=== PATIENT | male | born 1970 | race Caucasian/White ===

== ENCOUNTER → 2023-01-15 | Outpatient (CLI) | payer OTHER, SELFPAY ==
--- NOTE | 2023-01-15 13:40 | STRESSREP ---
Stress Test Report Exercise stress test. 52-year-old man with a history of chest pain Stress protocol: Resting EKG demonstrates normal sinus rhythm with a rate of 74 bpm resting blood pressure is 132/90 mmHg. The patient exercised according to the regular Leandro protocol for a total duration of 9 minutes attaining a maximum heart rate of 150 bpm which was 89% of maximum predicted heart rate; the maximum workload was 10.3 metabolic equivalents. At rest there were no ST or T wave changes noted to suggest ischemia and at peak exercise upsloping ST changes only were noted which did not meet the criteria for ischemia. No clinical angina was noted the test was terminated due to the target heart rate being achieved/fatigue. The patient did however complain of mild chest discomfort which did not change in intensity with exercise. The peak blood pressure was 150/74 mmHg. Rate-pressure product was 22,200. Normal exercise stress test with no EKG criteria for ischemia at a high workload. Chest discomfort of unclear significance.
== END | disposition home or self-care (01) ==
LOC: CVS 11:19
DX: R07.9 Chest pain, unspecified (principal)
CPT/HCPCS: 93017

== ENCOUNTER 2024-02-09 10:23 | Emergency (ER) | payer OTHER, SELFPAY ==
[2024-02-09] VITALS (30 sets, daily range): BP systolic 125–164; BP diastolic 81–110; PULSE 77–95; RESP 13–24; TEMP 36.1–37.1; O2SAT 96–99; BMI 27.8
--- NOTE | 2024-02-09 11:05 | EKG12_ITS ---
Test Reason : Blood Pressure : / mmHG Vent. Rate : 079 BPM Atrial Rate : 079 BPM P-R Int : 152 ms QRS Dur : 082 ms QT Int : 372 ms P-R-T Axes : 030 -09 033 degrees QTc Int : 426 ms Normal sinus rhythm Normal ECG Confirmed by Talib Rondon ([id number]), associate entertainment editor AVILA PINO ([id number]) on 02/11/2024 11:08:49 AM Referred By: Confirmed By:Talib Rondon
--- NOTE | 2024-02-09 11:06 | CT_ITS ---
STUDY: STROKE PROTOCOL CT BRAIN WITHOUT CONTRAST REASON FOR EXAM: Male, 53 years old. Neuro deficit, acute, stroke suspected RECENT HERNIA SURGERY LAST SUNDAY, THIS AM HAD NUMBNESS AND TINGLING ON RT SIDE THAT LASTED 1 MINUTE, SYMPTOMS RESOLVED RADIATION DOSAGE (If Supplied By Facility): CTDIvol = ( 29.02 ) mGy, DLP = ( 1452.79 ) mGycm TECHNIQUE: Transaxial CT imaging of the brain was performed without administration of intravenous contrast material. Individualized dose optimization techniques were used for this CT. COMPARISON: None. FINDINGS: Normal soft tissue structures. Normal calvarium. Normal size ventricles and extra-axial spaces for the patient''s age. Normal white matter tracts of the cerebral hemispheres. Normal basal ganglia and thalami. Normal brainstem. Normal cerebellum. There is no demonstrated asymmetric dense artery sign or sulcal effacement or parenchymal edema. There is no intracranial hemorrhage. There are no findings of an acute ischemic infarction. Normal visualized paranasal sinuses. ASPECTS Score for Acute Strokes: 10 IMPRESSION: 1. Normal unenhanced CT scan of the brain. 2. Concern for stroke/positive symptomatology should be further evaluated with CT brain perfusion/CTA or MRI of the brain for further assessment. STUDY: CTA HEAD AND NECK WITH CONTRAST REASON FOR EXAM: Male, 53 years old. Neuro deficit, acute, stroke suspected RADIATION DOSAGE (If Supplied By Facility): CTDIvol = ( 29.02 ) mGy, DLP = ( 1452.79 ) mGycm TECHNIQUE: CT angiography was performed with a multi-detector CT scanner. Data acquisition was obtained from the skull base through the vertex following intravenous administration of IV 100mL Isovue-370. MIP images were reconstructed from the axial data set. Post-processing of the angiographic images was performed, with multiplanar reformation and 3D reconstruction. Individualized dose optimization techniques were used for this CT. COMPARISON: No relevant priors. FINDINGS: Normal bilateral petrous carotid arteries. Normal right cavernous carotid artery with a normal supraclinoid bifurcation. Normal left cavernous carotid artery with a normal supraclinoid bifurcation. Normal right A1 segments of the anterior cerebral artery. Normal left A1 segments of the anterior cerebral artery. Normal intact anterior communicating artery (ACOM). Normal bilateral A2 segments of the anterior cerebral arteries. Normal right M1 and M2 segments of the middle cerebral arteries, with a normal M1 bifurcation. Normal left M1 and M2 segments of the middle cerebral arteries, with a normal M1 bifurcation. Normal right posterior communicating artery (PCOM). Normal left posterior communicating artery (PCOM). There is a small atretic right vertebral artery with a dominant left vertebral artery. Normal basilar artery with a normal basilar bifurcation. The visualized bilateral superior cerebellar (SCA) arteries are normal. Normal bilateral P1, P2 and visualized P3 segments of the posterior cerebral arteries. There is no demonstrated aneurysm of the [place]. There is no demonstrated abnormality of the visualized brain. AORTIC ARCH: Normal visualized aortic arch. Normal origins of the brachiocephalic, left common carotid, and left subclavian arteries. RIGHT CAROTID ARTERIES: Normal right common carotid artery (CCA). Normal right common carotid bulb. Normal origin of the right internal carotid (ICA) artery without a hemodynamically significant stenosis. Normal visualized cervical portion of the right internal carotid artery. Normal origin of the right external carotid artery (ECA). LEFT CAROTID ARTERIES: Normal left common carotid artery (CCA). Normal left common carotid bulb. Normal origin of the left internal carotid (ICA) artery without a hemodynamically significant stenosis. Normal visualized cervical portion of the left internal carotid artery. Normal origin of the left external carotid artery (ECA). VERTEBRAL ARTERIES: Normal bilateral vertebral arteries. CT/CTA Head AND Neck W/ Contrast IMPRESSION: 1. Normal [place] of [place] without a demonstrated aneurysm or hemodynamically significant stenosis. 2. Normal bilateral cervical carotid and vertebral arteries. N.B. : The above Results were Read Back by Kaden Kingston MD to Porfirio Holley MD, and understanding confirmed on 02/09/2024 12:49:44 (ET). Electronically Signed: Kaden Kingston MD at 12:51 EDT ,
--- NOTE | 2024-02-09 11:07 | ED.VIS.STROK ---
HPI History of Present Illness Chief Complaint: Neuro S/Sx Informant: patient and spouse/S.O. Narrative Narrative: Patient presents about 1 hour after sudden onset while he was awake this morning of numbness in his right upper extremity and right lower face, facial droop as confirmed by his , and slurred speech. He states that maybe lasted a minute before it all went away together. He does not remember feeling any weakness but he states he did not really try to do anything with his hand before at all resolved. Never had this before. He did not experience a headache or syncope or any other systemic symptoms. He had a right inguinal herniorrhaphy at [facility] 2 days ago. He has been sleeping in a recliner, but otherwise recovering okay without any discharge from underneath of his operative dressings. He is passing flatus no bowel movement yet. Urinating well. states that he had been straight catheterized while there, and subsequently he urinated a small amount of blood with some clots, he is now urinating without hematuria but he states there are some residual small clots that he seems to be urinating out occasionally. [facility] Medical History (Updated 02/09/24 @ 13:[address] Porfirio Holley MD) GERD (gastroesophageal reflux disease) Hyperlipidemia Home Medications ascorbic acid (vitamin C) 250 mg tablet (Vitamin C) 250 mg PO DAILY 02/09/24 [History Last Taken 01/31/24] cholecalciferol (vitamin D3) 50 mcg (2,000 unit) capsule (D3-2000) 2,000 unit PO DAILY 02/09/24 [History Last Taken 01/31/24] clopidogrel 75 mg tablet 75 mg PO DAILY 3 weeks #21 tabs 02/09/24 [Rx Last Taken Unknown] ezetimibe 10 mg tablet 10 mg PO DAILY 02/09/24 [History Last Taken 01/31/24] fluticasone 250 mcg-salmeterol 50 mcg/dose blistr powdr for inhalation (Wixela Inhub) 1 inh inhalation DAILY 02/09/24 [History Last Taken 02/09/24] hydrocodone-acetaminophen 5-325mg 5mg-325mg 1 tab PO Q6H PRN pain 02/09/24 [History Last Taken 02/08/24] omeprazole 20 mg capsule,delayed release 20 mg PO DAILY 02/09/24 [History Last Taken 02/08/24] rosuvastatin 10 mg tablet 20 mg (2 x 10 mg) PO DAILY #60 tabs 02/09/24 [Rx Last Taken Unknown] tamsulosin 0.4 mg capsule 0.8 mg PO DAILY 02/09/24 [History Last Taken 02/08/24] Allergy/AdvReac Type Severity Reaction Status Date / Time No Known Allergies Allergy Verified 02/09/24 10:25 Family History no significant family his Surgical History (Updated 02/09/24 @ 11:[address] Porfirio Holley MD) S/P hernia surgery S/P inguinal herniorrhaphy Social History Smoking Status: Never smoker ROS ROS ED Constitutional Constitutional ED: Denies chills or fever(s) Eyes Eyes: Denies change in vision or diplopia ENT ENT ED: Denies rhinorrhea or sore throat Cardiovascular Cardiovascular: Denies chest pain or palpitations Respiratory/Chest Respiratory/Chest: Denies cough or dyspnea Gastrointestinal Gastrointestinal: Denies abdominal pain, diarrhea, nausea or vomiting Genitourinary Genitourinary ED: Denies dysuria or hematuria Musculoskeletal Musculoskeletal: Denies back pain or neck pain Integumentary Denies abscess or rash Neurologic Neurologic: Reports abnormal speech, paresthesias and weakness; Denies headache(s) Psychiatric Psychiatric: Denies anxiety or suicidal thoughts EXAM Physical Exam Const Vital Signs: 02/09/24 10:24 02/09/24 10:57 02/09/24 11:05 Temperature 96.9 F L Temperature Source Temporal Pulse Rate 86 82 Respiratory Rate 16 16 Blood Pressure 164/107 H 147/93 H Blood Pressure Mean 126 111 Pulse Ox 97 98 Oxygen Delivery Method Room Air Room Air Room Air 02/09/24 11:05 02/09/24 10:51 02/09/24 10:55 Temperature Temperature Source Pulse Rate 88 81 82 Respiratory Rate 18 16 18 Blood Pressure 149/96 H 147/93 H Blood Pressure Mean 113 109 Pulse Ox 98 97 97 Oxygen Delivery Method Room Air 02/09/24 11:00 02/09/24 11:05 02/09/24 11:10 Temperature Temperature Source Pulse Rate 85 78 81 Respiratory Rate 17 16 16 Blood Pressure 142/96 H 140/100 H 140/95 H Blood Pressure Mean 108 112 106 Pulse Ox 98 97 97 Oxygen Delivery Method 02/09/24 11:15 02/09/24 11:20 02/09/24 11:25 Temperature Temperature Source Pulse Rate 86 95 Respiratory Rate 21 H 18 Blood Pressure 149/96 H 125/89 H 137/95 H Blood Pressure Mean 111 101 108 Pulse Ox 96 99 Oxygen Delivery Method 02/09/24 11:30 02/09/24 11:35 02/09/24 11:40 Temperature Temperature Source Pulse Rate 84 82 93 Respiratory Rate 21 H 21 H 14 Blood Pressure 145/102 H 139/98 H 143/106 H Blood Pressure Mean 115 110 118 Pulse Ox 97 97 97 Oxygen Delivery Method 02/09/24 11:45 02/09/24 11:50 02/09/24 11:55 Temperature Temperature Source Pulse Rate 77 80 80 Respiratory Rate 16 20 H 20 H Blood Pressure 143/95 H 137/93 H 140/96 H Blood Pressure Mean 109 106 109 Pulse Ox 98 97 97 Oxygen Delivery Method 02/09/24 12:00 02/09/24 12:05 02/09/24 12:10 Temperature Temperature Source Pulse Rate 80 79 86 Respiratory Rate 16 20 H 24 H Blood Pressure 136/95 H 138/100 H 145/110 H Blood Pressure Mean 107 111 123 Pulse Ox 97 97 96 Oxygen Delivery Method 02/09/24 12:25 02/09/24 12:26 02/09/24 12:30 Temperature Temperature Source Pulse Rate 82 83 Respiratory Rate 22 H 17 Blood Pressure 145/90 H 144/90 H Blood Pressure Mean 108 106 Pulse Ox 98 98 Oxygen Delivery Method 02/09/24 12:35 02/09/24 12:40 02/09/24 12:45 Temperature Temperature Source Pulse Rate 78 80 84 Respiratory Rate 18 17 16 Blood Pressure 146/96 H 144/95 H 135/102 H Blood Pressure Mean 110 110 113 Pulse Ox 98 99 99 Oxygen Delivery Method 02/09/24 12:50 02/09/24 12:55 02/09/24 13:00 Temperature Temperature Source Pulse Rate 81 83 82 Respiratory Rate 13 18 14 Blood Pressure 132/101 H 140/93 H 144/99 H Blood Pressure Mean 111 109 113 Pulse Ox 98 98 97 Oxygen Delivery Method Positive well nourished and well developed General Appearance ED: well developed and NAD HEENT Reports moist mucous membranes normocephalic and atraumatic Eyes PERRL and EOMs intact bilaterally Neck full ROM and supple Resp normal respiratory effort and clear to auscultation bilaterally Cardio regular rate, regular rhythm and no murmurs GI non-tender and non-distended Auscultation: normoactive bowel sounds Palpation: soft Back/Spine no CVA tenderness General Back: other FROM Extremity normal to inspection General Extremety ED: Negative for edema, pulses abnormal or tenderness General Extremity: Negative for edema or pulses abnormal Neuro oriented x3, CN's II-XII intact bilaterally and no sensory deficits noted Neuro Narrative: Speech normal. [id number] and [id number] normal bilaterally. Sensorium / Orientation: awake and alert Motor Exam: strength 5/5 throughout Psych mental status grossly normal Skin no rashes or lesions noted and no wounds NIHSS NIHSS Initial: 1a Level of Consciousness: 0 1b LOC Questions (Score 2 if aphasic/stupor): 0 1c LOC Commands (Only score 1st attempt): 0 2 Best Gaze (If aphasic, use reflexive mvmts.): 0 3 Visual: 0 4 Facial Palsy: 0 5 Motor Arm Right (UN = amputation/fusion): 0 5 Motor Arm Left: 0 6 Motor Leg Right: 0 6 Motor Leg Left: 0 7 Limb ataxia (Only + if out of proportion): 0 8 Sensory (Aphasia/stupor=0 or 1, coma=2): 0 9 Best Language: 0 10 Dysarthria (mute, coma=2, intubated=UN): 0 11 Extinction and Inattention (only scored if +): 0 Total Score: 0 MDM MDM MDM Narrative Medical decision making narrative: Stroke workup obtained, patient does not need to be a stroke alert since he is asymptomatic and not a thrombolytic candidate given his surgery couple days ago. Basically, his heart rhythm is normal sinus with a normal EKG and troponin, his labs are normal, CT of the head along with CT angiography of the head and neck images were reviewed by myself as well as the report which I agree with, negative for bleed, negative for acute stenosis or thrombosis. I spoke with the radiologist and specifically, he states that the vessels appear wide open and very normal. He states if this was a TIA it must have involved a small cortical vessel. The patient states he had a little bit of tingling in his lower face after CT but it went away quickly and he had no other symptoms, and reexamination he still has an NIHSS of 0, I suspect this tingling could have been related to contrast infusion head CT. His ABCD2 score is 2, as calculated below since his initial blood pressure was measuring 160/107: ABCD<sup>2</sup> Score for TIA from [email or web address] ([email or web address]) on 02/09/2024 All calculations should be rechecked by clinician prior to use RESULT SUMMARY: 2 points Per the validation study, 0-3 points: Low Risk 2-Day Stroke Risk: 1.0% 7-Day Stroke Risk: 1.2% 90-Day Stroke Risk: 3.1% INPUTS: Age >=60 years ?> 0 = No BP >=140/90 mmHg ?> 1 = Yes Clinical features of the TIA ?> 1 = Speech disturbance without weakness Duration of symptoms ?> 0 = <10 minutes History of diabetes ?> 0 = No Also reviewed the patient's chest x-ray, 2 views on my interpretation negative for mediastinal widening or pneumonia. I spoke with stroke neurology concerning this case. Given that we imaged his carotids, he recommends high-dose statin, DAPT with clopidogrel for 21 days and baby aspirin going forward daily during and after that, and echocardiogram can be obtained as an outpatient. He agrees since patient is asymptomatic and unless he develops recurrence, he may be discharged home and have the echocardiogram when he follows up. Patient is definitely amenable to this plan. Discussed at length with family. According to stroke neurology, there is an increased risk of TIAs and strokes after surgery as in this case, but for unknown reasons why. At this time his blood pressure stable 144/99. He is on rosuvastatin 10 mg 3 times a week so we are going to increase that to 20 mg daily in addition to adding aspirin 81 mg and clopidogrel 75 mg for 3 weeks to his regimen. While discussing with family, they also mention that he has been having episodes of chest pain but the patient states this has been for years. It oftentimes occurs in his back and radiates into his chest. His cardiac workup is negative right now, this may be esophageal in etiology, advise discussing this with his primary doctor. Most referring him to neurology to be seen as an outpatient. Lab Data Attestation: I reviewed the patient's lab results. Labs: Laboratory Results - last 24 hr 02/09/24 02/09/24 02/09/24 11:20 11:20 11:55 WBC Cancelled 7.6 Corrected WBC Cancelled RBC Cancelled 4.85 Hgb Cancelled 14.1 Hct Cancelled 42.6 MCV Cancelled 87.8 MCH Cancelled 29.1 MCHC Cancelled 33.1 RDW Std Deviation Cancelled 42.5 RDW Coeff of Omar Cancelled 13.2 Plt Count Cancelled 266 MPV Cancelled 9.7 Immature Gran % (Auto) Cancelled 0.400 Neut % (Auto) Cancelled 69.5 Lymph % (Auto) Cancelled 17.9 L Nolan % (Auto) Cancelled 8.9 Eos % (Auto) Cancelled 2.2 Baso % (Auto) Cancelled 1.1 H Absolute Neuts (auto) Cancelled 5.3 Absolute Lymphs (auto) Cancelled 1.36 Total Counted Cancelled Neutrophils % (Manual) Cancelled Band Neutrophils % Cancelled Lymphocytes % (Manual) Cancelled Monocytes % (Manual) Cancelled Eosinophils % (Manual) Cancelled Basophils % (Manual) Cancelled Metamyelocytes % Cancelled Myelocytes % Cancelled Promyelocytes % Cancelled Blast Cells % Cancelled Plasma Cell % (Manual) Cancelled Other Cells % Cancelled Nucleated RBC % Cancelled 0 Nucleated RBCs/100 WBC Cancelled Differential Comment Cancelled Diff Path Review Cancelled Hypersegmented Neuts Cancelled Atypical Lymphocytes Cancelled Reactive Lymphocytes Cancelled Smudge Cells Cancelled Toxic Granulation Cancelled Toxic Vacuolation Cancelled Dohle Bodies Cancelled Nehemiah Rods Cancelled Platelet Estimate Cancelled Plt Morphology Comment Cancelled RBC Morphology Cancelled Cancelled Polychromasia Cancelled Hypochromasia Cancelled Basophilic Stippling Cancelled Anisocytosis Cancelled Microcytosis Cancelled Macrocytosis Cancelled Spherocytes Cancelled Sickle Cells Cancelled Target Cells Cancelled Tear Drop Cells Cancelled Ovalocytes Cancelled Stomatocytes Cancelled [place] Bodies Cancelled Marichuy Cells Cancelled Bite Cells Cancelled Crenated Cell Cancelled Acanthocytes (Spur) Cancelled Rouleaux Cancelled Schistocytes Cancelled PT 13.0 INR 1.0 APTT 24.2 Sodium 139 Potassium 4.5 Chloride 109 H Carbon Dioxide 28.0 Anion Gap 2 L BUN 11 Creatinine 0.99 Estim Creat Clear Calc 90.71 Est GFR (MDRD) Af Amer 101 Est GFR (MDRD) Non-Af 84 BUN/Creatinine Ratio 11.1 Glucose 101 Calcium 9.3 Troponin I High Sens 5 Radiography Diagnostic Testing: Clinical Impression(s) from Imaging Studies Head/Neck CTA 02/09/24 11:06 IMPRESSION: 1. Normal [place] without a demonstrated aneurysm or hemodynamically significant stenosis. 2. Normal bilateral cervical carotid and vertebral arteries. N.B. : The above Results were Read Back by Kaden Kingston MD to Porfirio Holley MD, and understanding confirmed on 02/09/2024 12:49:44 (ET). Electronically Signed: Kaden Kingston MD at 12:51 EDT , ADDENDUM: 02/09/24 1258 IMPRESSION: 1. Normal [place] without a demonstrated aneurysm or hemodynamically significant stenosis. 2. Normal bilateral cervical carotid and vertebral arteries. N.B. : The above Results were Read Back by Kaden Kingston MD to Porfirio Holley MD, and understanding confirmed on 02/09/2024 12:49:44 (ET). Electronically Signed: Kaden Kingston MD at 12:51 EDT , Chest X-Ray 02/09/24 12:18 IMPRESSION: 1. Linear atelectasis is present in the bilateral lower lobes. No visualized consolidation or pulmonary edema or pleural effusion. Electronically Signed: Kaden Kingston MD at 13:38 EDT , Rhythm Strip Rhythm Strip: Sinus Rhythm Rate: 80 Ectopy: None EKG Initial EKG: Attestation: I personally reviewed and interpreted this EKG as follows: Interpretation: Sinus Rhythm and No Acute Injury Pattern Comments: nml EKG Management Discussion w/another healthcare provider: [employer] (Dr. Mcdonough, stroke neurology) and Radiologist Stroke Documentation Questions Stroke Team Activated: No (Symptoms resolved) Was Patient considered for Endovascular Intervention?: No-CTA negative, determined not to be an endovascular candidate IV Thrombolytic Administered: No (Symptoms resolved and recent surgery) Discharge Plan Triage Chief Complaint: Neuro S/Sx ED Provider: Porfirio Holley Dx/Rx/DC Orders Clinical Impression: Brain TIA Instructions: ED TIA: Transient Ischemic Attack Prescriptions: New clopidogrel 75 mg tablet 75 mg PO DAILY 21 Days Qty: 21 0RF Continued hydrocodone-acetaminophen 5-325 mg tablet 1 tab PO Q6H PRN (Reason: pain) ezetimibe 10 mg tablet 10 mg PO DAILY Patient Comments: MED STOPPED ON 01/31/24 FOR SURGERY tamsulosin 0.4 mg capsule 0.8 mg PO DAILY Patient Comments: pt took 1 capsule night, and 1 capsule sunday morning. no longer taking fluticasone propion-salmeterol [Wixela Inhub] 250-50 mcg/dose blister with device 1 inh inhalation DAILY omeprazole 20 mg capsule,delayed release(DR/EC) 20 mg PO DAILY ascorbic acid (vitamin C) [Vitamin C] 250 mg tablet 250 mg PO DAILY cholecalciferol (vitamin D3) [D3-2000] 50 mcg (2,000 unit) capsule 2,000 unit PO DAILY Changed rosuvastatin 10 mg tablet 20 mg PO DAILY Qty: 60 0RF Patient Comments: MED STOPPED ON 01/31/24 FOR SURGERY Primary Care Provider: Bala Munoz Referrals: Gen Larose MD [Non-Staff -Ordering Privileges] - As soon as possible (Neurology) Bala Munoz DO [Primary Care Provider] - As soon as possible Activity Restrictions/Additional Instructions: To the medication list attached, add aspirin 81 mg (baby aspirin) once daily. In addition to your doctor, you may also follow-up with our neurologist whose information is attached, or if you wish you may follow-up with a neurology practice elsewhere. Disposition Disposition: Home, Self Care
--- NOTE | 2024-02-09 11:09 | NURSING ---
NO OLD EKGS
[2024-02-09 11:35] LABS: Partial Thromboplast Time 24.2 Seconds (24.1-36.2)
--- NOTE | 2024-02-09 11:35 | NURSING ---
CBCD CLOTTED, NEEDS REDRAWN LAB TO REPRINT LABEL
[2024-02-09 11:48] LABS: Anion Gap 2 (5-15); BUN 11 mg/dL (7-18); BUN/Creat Ratio 11.1 RATIO (10-20); Calcium,Total 9.3 mg/dL (8.5-10.1); Chloride 109 mmol/L (98-107); Creatinine, Serum 0.99 mg/dL (0.70-1.30); EST Glomerular Filtration Rate 84 mL/min (>60); Est Glom Filt Rate - Afr Amer 101 mL/min (>60); Estimated Creatinine Clearance 90.71 ml/min; Glucose 101 mg/dL (74-106); Potassium 4.5 mmol/L (3.5-5.1); Sodium Level 139 mmol/L (136-145); Troponin-I HS 5 pg/mL (3.0-78.0)
[2024-02-09 12:03] LABS: Absolute Lymphocyte Count 1.36 X10^3/uL (0.83-4.51); Absolute Neutrophil Count 5.3 X10^3/uL (2.0-7.7); Basophil# 0.08 X10^3/uL; Basophil% 1.1 % (0-1); Eosinophil# 0.17 X10^3/uL; Eosinophils% 2.2 % (0-5); Hematocrit 42.6 % (40-54); Hemoglobin 14.1 g/dL (13.0-16.5); Lymphocyte # 1.36 X10^3/ul (0.83-4.51); Lymphocyte % 17.9 % (19-41); Mean Corp Hgb Conc 33.1 g/dL (32-36); Mean Corpuscular Hgb 29.1 pg (27.0-32.0); Mean Corpuscular Volume 87.8 fL (80-94); Mean Platelet Vol. 9.7 fl (6.2-12.0); Monocyte# 0.68 X10^3/uL; Monocyte% 8.9 % (0-10); NRBC Flagged by Analyzer 0 % (0-5); Neutrophil # 5.28 X10^3/uL (2.7-7.7); Neutrophil % 69.5 % (47-70); Platelet Count 266 K/mm3 (150-450); RBC Distribution Width CV 13.2 % (11.6-14.6); RBC Distribution Width SD 42.5 fl (35.1-43.9); Red Blood Count 4.85 M/mm3 (4.6-6.2); White Blood Count 7.6 K/mm3 (4.4-11.0)
--- NOTE | 2024-02-09 12:18 | RAD_ITS ---
STUDY: X-RAY CHEST REASON FOR EXAM: Male, 53 years old. mediastinal eval - stroke sx TECHNIQUE: PA and lateral views of the chest. COMPARISON: None. FINDINGS: Linear atelectasis is present in the bilateral lower lobes. No visualized consolidation or pulmonary edema or pleural effusion. There is no demonstrated pleural abnormality. Normal size heart. Normal mediastinum and maribel. Normal visualized pulmonary arteries. There is atherosclerotic calcification of the aortic arch with tortuosity. There are diffuse degenerative changes of the visualized thoracic spine. Normal visualized ribs, clavicles, and shoulders. There is no demonstrated abnormality of the visualized soft tissue structures of the upper abdomen. RAD/Chest PA and Lateral IMPRESSION: 1. Linear atelectasis is present in the bilateral lower lobes. No visualized consolidation or pulmonary edema or pleural effusion. Electronically Signed: Kdaen Kingston MD at 13:38 EDT ,
[2024-02-09] MEDS: Clopidogrel Bisulfate 75 MG Tablet PO (14:10)
== END 2024-02-09 14:15 | disposition home or self-care (01) ==
PROVIDERS: Emergency Provider Emergency Medicine; Visit Provider Emergency Medicine
DX: G45.9 Transient cerebral ischemic attack, unspecified (principal); K21.9 Gastro-esophageal reflux disease without esophagitis; E78.5 Hyperlipidemia, unspecified; Z79.899 Other long term (current) drug therapy; J98.11 Atelectasis; Z98.890 Other specified postprocedural states
CPT/HCPCS: 70496; 70498; 71046; 80048; 84484; 85025; 85610; 85730; 93005; 99283; Q9967

== ENCOUNTER 2025-10-17 04:42 | Emergency (ER) | payer OTHER, SELFPAY ==
[2025-10-17 04:42] VITALS: BP 150/96; PULSE 81; RESP 16; TEMP 36.9; O2SAT 99; BMI 28.3
--- NOTE | 2025-10-17 04:55 | US_ITS ---
PROCEDURE: TESTICULAR WITH ARTERIAL FLOW 10/17/2025 REASON FOR EXAM: TERSTICULAR PAIN TECHNIQUE: Procedure Code: USTES Modality: US Procedure: TESTICULAR WITH ARTERIAL FLOW COMPARISON: None FINDINGS: RIGHT testicle: 3.3 x 2.6 x 3.4 cm. Homogeneous echotexture. No intratesticular mass. Right epididymis: The right epididymis is heterogeneous with mild increase in vascularity. The right epididymal head measures 1.5 x 1.3 x 2 cm. LEFT testicle: 4.4 x 3.5 x 2.5 cm. Homogeneous echotexture. No intratesticular mass. Left epididymis: The left epididymal head is heterogeneous in appearance and enlarged measuring 3.9 x 0.9 x 3.3 cm. Other findings: No hydrocele or large varicocele. US/Testicular with Arterial Flow IMPRESSION: Heterogeneous appearance of the right epididymis with mild increase in vascular ity.. Enlarged heterogeneous left epididymis. These findings are suggestive of chron ic or acute on chronic infectious process. The testicles are within normal limits. Reading Location: [id number]
--- NOTE | 2025-10-17 05:17 | EX.ED.GUMALE ---
HPI History of Present Illness Chief Complaint: Flank Pain Narrative Narrative: Patient was seen and examined after presenting to ED for left-sided scrotal pain started couple days ago has progressively gone up into his abdomen not known to having kidney stones not having hematuria no known history of any hernia denies having any fevers no trauma. [facility] Medical History GERD (gastroesophageal reflux disease) Hyperlipidemia Home Medications ?Medication ?Instructions ?Recorded ?Last Taken ?Type ascorbic acid (vitamin C) 250 mg 250 mg PO DAILY 02/09/24 01/31/24 History tablet (Vitamin C) cholecalciferol (vitamin D3) 50 2,000 unit PO DAILY 02/09/24 01/31/24 History mcg (2,000 unit) capsule (D3-2000) ezetimibe 10 mg tablet 10 mg PO DAILY 02/09/24 01/31/24 History fluticasone 250 mcg-salmeterol 50 1 inh inhalation DAILY 02/09/24 02/09/24 History mcg/dose blistr powdr for inhalation (Wixela Inhub) omeprazole 20 mg capsule,delayed 20 mg PO DAILY 02/09/24 02/08/24 History release rosuvastatin 10 mg tablet 20 mg (2 x 10 mg) PO DAILY #60 tabs 02/09/24 Unknown Rx aspirin 81 mg tablet 81 mg PO QDAY 10/17/25 Unknown History clonidine HCl 0.1 mg tablet 0.1 mg PO DAILY PRN 10/17/25 Unknown History levofloxacin 500 mg tablet 500 mg PO DAILY #9 tabs 10/17/25 Unknown Rx Allergy/AdvReac Type Severity Reaction Status Date / Time No Known Allergies Allergy Verified 10/17/25 04:43 Surgical History S/P inguinal herniorrhaphy S/P hernia surgery Social History Smoking Status: Never smoker ROS ROS ED ROS Narrative Pertinent Positives: Left-sided scrotal pain radiating into the abdomen and left flank Pertinent Negatives: Fevers chills nausea vomiting hematuria trauma The remainder of review of systems negative unless otherwise stated in the HPI above. Systems reviewed including constitutional, psychiatric, cardiovascular, respiratory, integument, HENT, gastrointestinal. EXAM Physical Exam Narrative Exam Narrative: Afebrile hemodynamically stable does not appear toxic or in distress normocephalic atraumatic abdomen is soft nontender nondistended no left-sided CVA tenderness whatsoever. exam performed he has intact cremasteric reflexes but he does have tenderness on palpation of his left testicle does appear somewhat swollen as well. No erythema no crepitus nothing consistent with Miley's no vesicular lesions or abnormal discharge. Patient has intact MSPs in his extremities. Const Vital Signs: 10/17/25 04:42 Temperature 98.4 F Temperature Source Oral Pulse Rate 81 Respiratory Rate 16 Blood Pressure 150/96 H Blood Pressure Mean 114 Pulse Ox 99 Oxygen Delivery Method Room Air MDM MDM MDM Narrative Medical decision making narrative: Nursing notes, triage notes, available previous documentation, and vital signs were reviewed. Any discrepancies noted were addressed. Differential Diagnoses: Need to consider torsion or epididymitis or inguinal hernia not Miley's is not cellulitic low suspicion for nephrolithiasis or aortic etiology could consider UTI pyelonephritis Interventions: Antibiotics Given: Levofloxacin Labs Reviewed: No electrolyte abnormality or renal insufficiency urine without evidence of infection Imaging Reviewed: Testicular ultrasound: Good blood flow but appearance of either inflammatory or chronic infectious findings Previous Documentation Reviewed: None available or applicable at this time. ED Course: Patient presenting with left-sided testicular pain ongoing for 2 days now radiating into his left flank. We are getting a testicular ultrasound to evaluate for flow as well as any sort of anatomical features that are abnormal we will check a urine and we will also evaluate the renal function. Patient with what most likely is epididymitis on testicular ultrasound he has good flow his urine does not appear to be infected patient given levofloxacin and a prescription for the same has been written he will be discharged with return precautions and follow-up recommendations This note was made utilizing voice recognition software. All attempts were made to correct spelling or other errors prior to note completion. However, due to the fast-paced nature of emergency medicine, some errors may still be present. Lab Data Labs: Laboratory Results - last 24 hr 10/17/25 10/17/25 05:00 05:17 Sodium 137 Potassium 4.0 Chloride 101 Carbon Dioxide 24.7 Anion Gap 11 BUN 13 Creatinine 0.96 Estim Creat Clear Calc 92.13 Est GFR (MDRD) Non-Af 93 BUN/Creatinine Ratio 13.5 Glucose 118 H Calcium 9.8 Urine Color Yellow Urine Clarity Clear Urine pH 7.0 Ur Specific [place] 1.015 Urine Protein Negative Urine Glucose (UA) Normal Urine Ketones Negative Urine Occult Blood Negative Urine Nitrite Negative Urine Bilirubin Negative Urine Urobilinogen Normal Ur Leukocyte Esterase Negative Urine RBC 0 SEEN Urine WBC 0 SEEN Ur Squamous Epith Cells 0 SEEN Urine Bacteria 0 SEEN Urine Mucus 0 SEEN Radiography Diagnostic Testing: Clinical Impression(s) from Imaging Studies Testicular Ultrasound 10/17/25 04:55 IMPRESSION: Heterogeneous appearance of the right epididymis with mild increase in vascularity.. Enlarged heterogeneous left epididymis. These findings are suggestive of chronic or acute on chronic infectious process. The testicles are within normal limits. Reading Location: [facility] Discharge Plan Triage Chief Complaint: Flank Pain ED Provider: Pedro Luis Bills Dx/Rx/DC Orders Clinical Impression: Left testicular pain, Epididymitis, left Instructions: ED Epididymitis Prescriptions: New levofloxacin 500 mg tablet 500 mg PO DAILY Qty: 9 0RF Rx Instructions: start on 10/18/2025 No Action clonidine HCl 0.1 mg tablet 0.1 mg PO DAILY PRN aspirin 81 mg tablet 81 mg PO QDAY ezetimibe 10 mg tablet 10 mg PO DAILY fluticasone propion-salmeterol [Wixela Inhub] 250-50 mcg/dose blister with device 1 inh inhalation DAILY omeprazole 20 mg capsule,delayed release(DR/EC) 20 mg PO DAILY ascorbic acid (vitamin C) [Vitamin C] 250 mg tablet 250 mg PO DAILY cholecalciferol (vitamin D3) [D3-2000] 50 mcg (2,000 unit) capsule 2,000 unit PO DAILY rosuvastatin 10 mg tablet 20 mg PO DAILY Qty: 60 0RF Primary Care Provider: Bala Munoz Referrals: Bala Munoz DO [Primary Care Provider, Medical] Activity Restrictions/Additional Instructions: Take the antibiotics to completion be sure to follow-up with your primary care doctor please return if getting rapidly worse Print Language: Armenian Disposition Disposition: Home, Self Care
--- OUTSIDE RECORDS SUMMARY | 2025-10-17 05:23 | XMS RPT_ITS | CCD ---
Author Organization [facility] Care Team Providers Care Family Physician Name Role Phone HAKEEM NELSON Unavailable Unavailable OMAR, HAKEEM Unavailable Unavailable OMAR, HAKEEM Unavailable Unavailable EDILBERTO CALDERON-JENNYFER VELARDE Primary Care Physician ([phone]) Elena Serrato PT Unavailable Unavailable Jennyfer Casanova APRN.CNP Primary Care Provider [phone] BALA WANG DO Primary Care Physician Dr. Bala Wang Primary Care Provider [phone] Dr. Bala Wang Other Provider [phone] Dilshad Harris Attending Provider [phone] DEYVI MOREL MD Attending Unavailable BALA WANG DO Primary Care Unavailable DEYVI MOREL MD Attending Unavailable BALA WANG DO Primary Care Unavailable BALA WANG DO Attending Unavailable BALA WANG DO Primary Care Unavailable BALA WANG DO Attending Unavailable BALA WANG DO Primary Care Unavailable SERAFIN PETROLEUM LABORATORY TECHNICIAN-ASSURANCE SOURCING MANAGER, [place] Attending U BALA Ritchie DO Primary Care Unavailable ELI VICK Attending Unavailable BALA WANG DO Primary Care Unavailable SERAFIN PETROLEUM LABORATORY TECHNICIAN-ASSURANCE SOURCING MANAGER, [place] Attending U navailable BALA WANG DO Primary Care Unavailable BALA WANG DO Attending Unavailable BALA WANG DO Primary Care Unavailable DEYVI MOREL MD Attending Unavailable BALA WANG DO Primary Care Unavailable ANAHI PLEITEZ MD Attending Unavailable BALA WANG DO Primary Care Unavailable ANAHI PLEITEZ MD Consulting Unavailable ANAHI PLEITEZ MD Attending Unavailable BALA WANG DO Primary Care Unavailable Porfirio Holley Attending Unavailable Bala Wang Primary Care Unavailable BALA WANG DO Attending Unavailable BALA WANG DO Primary Care Unavailable Allergies Allergy Classification Reported Allergen(s) Allergy Type Date of Onset Reaction(s) Facility (6 sources) seasonal enviromental Allergy to substance sneezing, runny nose [facility] Work Phone: Medications Current Medications Medication Drug Class(es) Dates Sig (Normalized) Sig (Original) acetaminophen 500 mg oral tablet (6 sources) Start: 10-27-2021 acetaminophen 500 mg oral tablet Dose : 1,000 mg = 2 tab(s), Oral, TID, PRN pain or fever, 0 Refill(s) Start Date: 10/27/21 Status: Ordered acetaminophen 325 mg / HYDROcodone bitartrate 5 mg oral tablet (2 sources) Opioid Agonist Start: 02-09-2024 take 1 tablet by mouth every six hours Hydrocodone-Acetami nophen Active 1 TABLET PO EVERY 6 HOURS February 09, 2024 12:00am Start: 02-07-2024 End: 02-12-2024 [place] 325- 5 mg oral tablet Dose = 1 tab(s), Oral, q4h, PRN Pain, scale 1-6, X 5 day(s), # 12 tab(s), 0 Refill(s), Pharmacy: [facility]/pharmacy #[id number], Acute post-operative pain, 173, cm, 02/07/24 7:21:00 EDT, Height, 79.5, kg, 02/07/24 7:21:00 EDT, Dosing Weight Start Date: 02/07/24 Stop Date: 02/12/24 Status: Ordered ascorbic acid 250 mg oral tablet (18 sources) Vitamin C Start: 02-09-2024 take 1 tablet by mouth once daily Ascorbic Acid (Vitamin C) (Vitamin C) 250 mg tablet Active 250 MG PO DAILY February 09, 2024 12:00am Start: 10-27-2021 take 1 dose by mouth once tristan y Vitamin C Dose : 500 mg =, Oral, qDay, 0 Refill(s) Start Date: 10/27/21 Status: Ordered Repeat number: 1 Start: 10-27-2021 Vitamin C qDay , 0 Refill(s) Start Date: 10/27/21 Status: Ordered Comment on above: Take 500 mg by mouth once daily. aspirin 81 mg delayed release oral tablet (4 sources) Platelet Aggregation Inhibitor, Nonsteroidal Anti-inflammatory Drug Start: 03-21-20 take 1 mg by mouth once daily aspirin 81 mg oral delayed release tablet mg = tab(s), Oral, qDay, 0 Refill(s) Start Date: 03/21/24 Status: Ordered Repeat number: 1 cholecalciferol 0.05 mg oral capsule (1 source) Vitamin D Start: 02-09-20 Cholecalciferol (Vitamin D3) (D3-2000) 50 mcg (2,000 unit) capsule Active 2000 UNIT PO DAILY February 09, 2024 12:00am clopidogrel 75 mg oral tablet (4 sources) P2Y12 Platelet Inhibitor Start: 02-15-20 clopidogrel 75 mg oral tablet 0 Refill(s) Start Date: 02/15/24 Status: Ordered Start: 02-09-2024 take 75 mg by mouth once daily Clopidogrel Active 75 MG PO DAILY February 09, 2024 12:00am 60 actuat fluticasone propionate 0.25 mg/actuat / salmeterol 0.05 mg/actuat dry powder inhaler (16 sources) Corticosteroid, beta2-Adrenergic Agonist Start: 04-24-2024 take 1 puff(s) by inhalation twice daily Wixela Inhub 250 mcg-50 mcg inhalation powder 1 puff, Inhalation, BID, # 3 EA, 3 Refill(s), Pharmacy: [facility]/pharmacy #[id number], 172.7, cm, 04/24/24 13:11:00 EDT, Height, kg, 04/24/24 13:11:00 EDT, Dosing Weight Start Date: 04/24/24 Status: Ordered Quantity: 3.0 Unit: EA Repeat number: 4 Start: 02-09-2024 Fluticasone Pr opion-Salmeterol (Wixela Inhub) 250-50 mcg/dose blister with device Active 1 INH INHALATION DAILY February 09, 2024 12:00am Start: 12-11-2023 take 1 puff(s) by in halation twice daily Wixela Inhub 250 mcg-50 mcg inhalation powder 1 puff, Inhalation, BID, # 3 EA, 3 Refill(s), Pharmacy: [facility]/pharmacy #[id number], 173.3, cm, 12/11/23 16:34:00 EST, Height, kg, 12/11/23 16:34:00 EST, Dosing Weight Start Date: 12/11/23 Status: Ordered Start: 12-06-2021 take 1 puff(s) by in halation twice daily Wixela Inhub 250 mcg-50 mcg inhalation powder 1 puff, Inhalation, BID, # 3 EA, 3 Refill(s), Pharmacy: [facility]/pharmacy #[id number], 173, cm, 12/06/21 16:24:00 EST, Height, kg, 12/06/21 16:24:00 EST, Dosing Weight Start Date: 12/06/21 Status: Ordered take 1 puff(s) by in halation twice daily fluticasone-salmeterol (ADVAIR, WIXELA) 250-50 mcg/dose Inhale 1 Puff as instructed twice daily. 0 Active Comment on above: Inhale 1 Puff as ins tructed twice daily. omeprazole 20 mg delayed release oral capsule (18 sources) Proton Pump Inhibitor Start: 12-11-2023 omeprazole 20 mg oral delayed release capsule Dose : 20 mg = 1 cap(s), Oral, qDay, # 90 cap(s), 3 Refill(s), Pharmacy: [facility]/pharmacy #[id number], 173.3, cm, 12/11/23 16:34:00 EST, Height, kg, 12/11/23 16:34:00 EST, Dosing Weight Start Date: 12/11/23 Status: Ordered Quantity: 90.0 Unit: cap(s) Repeat number: 4 Start: 12-12-2022 omeprazole 20 mg oral delayed release capsule Dose : 20 mg = 1 cap(s), 0 Refill(s) Start Date: 12/12/22 Status: Ordered Start: 05-04-2021 End: 12-01-2022 omeprazole 20 mg oral delaye d release capsule Dose : 20 mg = 1 cap(s), Oral, qDay, X 90 day(s), # 90 cap(s), 3 Refill(s), 12/01/22 17:23:00 EST, Pharmacy: [facility]/pharmacy #[id number], 173, cm, 12/06/21 16:24:00 EST, Height, kg, 12/06/21 16:24:00 EST, Dosing Weight Start Date: 12/06/21 Stop Date: 12/01/22 Status: Ordered Comment on above: Take 20 mg by mouth once daily. rosuvastatin calcium 10 mg oral tablet (20 sources) HMG-CoA Reductase Inhibitor Start: 03-21-2024 rosuvastatin 10 mg oral tablet Dose : 10 mg = 1 tab(s), Oral, qDay, # 100 tab(s), 3 Refill(s), [id number], 172.7, cm, 04/24/24 13:11:00 EDT, Height, kg, 04/24/24 13:11:00 EDT, Dosing Weight Start Date: 04/24/24 Status: Ordered Quantity: 100.0 Unit: tab(s) Repeat number: 4 Start: 02-09-2024 take 20 mg by mouth once daily Rosuvastatin Active 20 MG PO DAILY 60 February 09, 2024 1:50pm Start: 12-11-2023 End: 02-09-2024 rosuvastatin 10 mg oral tabl et Dose : 10 mg = 1 tab(s), Oral, Mon/Sun/Sun, # 39 tab(s), 3 Refill(s), [id number], 173.3, cm, 12/11/23 16:34:00 EST, Height, kg, 12/11/23 16:34:00 EST, Dosing Weight Start Date: 12/11/23 Status: Ordered Start: 08-27-2023 rosuvastatin 1 0 mg oral tablet Dose : 10 mg = 1 tab(s), Oral, Mon/Wed/Fri, # 39 tab(s), 1 Refill(s), [id number], 173, cm, 05/29/23 16:17:00 EDT, Height, kg, 05/29/23 16:17:00 EDT, Dosing Weight Start Date: 08/27/23 Status: Ordered Start: 01-18-2023 rosuvastatin 1 0 mg oral tablet Dose : 10 mg = 1 tab(s), Oral, Mon/Wed/Fri, # 39 tab(s), 1 Refill(s), Pharmacy: [facility]/pharmacy #[id number], 173, cm, 12/12/22 16:41:00 EST, Height, kg, 12/12/22 16:41:00 EST, Dosing Weight Start Date: 01/18/23 Status: Ordered Start: 05-04-2021 rosuvastatin 1 0 mg oral tablet Dose : 10 mg = 1 tab(s), Oral, Sun/Sun/Sun, # 39 tab(s), 3 Refill(s), Pharmacy: [facility]/pharmacy #[id number], 173, cm, 12/06/21 16:24:00 EST, Height, kg, 12/06/21 16:24:00 EST, Dosing Weight Start Date: 12/06/21 Status: Ordered Comment on above: Take 10 mg by mouth two times a week. tamsulosin hydrochloride 0.4 mg oral capsule (2 sources) alpha-Adrenergic Cal Start: 02-09-2024 take 0.8 mg by mouth once daily Tamsulosin Active 0.8 MG PO DAILY February 09, 2024 12:00am Start: 02-07-2024 End: 02-08-2024 Flomax 0.4 mg oral capsule D ose : 0.4 mg = 1 cap(s), Oral, BID, # 2 cap(s), 0 Refill(s), [id number], 173, cm, 02/07/24 7:21:00 EDT, Height, kg, 02/07/24 7:21:00 EDT, Dosing Weight Start Date: 02/07/24 Stop Date: 02/08/24 Status: Ordered Vitamin D3 (16 sources) Start: 10-27-2021 Vitamin D3 Dos e : 400 unit(s) = 1 tab(s), Oral, Daily, 0 Refill(s) Start Date: 10/27/21 Status: Ordered Repeat number: 1 Start: 10-27-2021 Vitamin D3 Dos e : 400 unit(s) = 1 tab(s), Oral, Daily, 0 Refill(s) Start Date: 10/27/21 Status: Ordered Wixela Inhub 250 mcg-50 mcg inhalation powder (2 sources) Start: 05-04-2021 take 1 puff(s) by inhalation twice daily Wixela Inhub 250 mcg-50 mcg inhalation powder 1 puff, Inhalation, BID, # 3 EA, 3 Refill(s), Pharmacy: [facility]/pharmacy #[id number], 174.5, cm, 05/04/21 8:03:00 EDT, Height, kg, 05/04/21 8:03:00 EDT, Dosing Weight Start Date: 05/04/21 Status: Ordered Zinc (6 sources) Start: 10-27-2021 take 1 mg by mouth once daily Zinc mg =, Oral, qDay, 0 Refill(s) Start Date: 10/27/21 Status: Ordered Completed/Discontinued Medications Medication Drug Class(es) Dates Sig (Normalized) Sig (Original) Albuterol (16 sources) beta2-Adrenergic Agonist Start: 11-14-2022 End: 12-14-2022 take 2 puff(s) by inhalation every four hours as needed for wheezing Ventolin HFA MDI (90 mcg/inh) inhalation aerosol 2 puff(s), Inhalation, q4h, PRN as needed for wheezing, # 6.7 gram(s), 0 Refill(s), Pharmacy: [facility]/pharmacy #[id number], Asthma, 173, cm, 11/14/22 15:29:00 EST, Height, kg, 11/14/22 15:29:00 EST, Dosing Weight Start Date: 11/14/22 Stop Date: 12/14/22 Status: Ordered Quantity: 6.7 Unit: g Repeat number: 1 Indication: Unspecified asthma, uncomplicated Start: 11-14-2022 End: 12-14-2022 take 2 puff(s) by inhalation every four hours as needed for wheezing Ventolin HFA MDI (90 mcg/inh) inhalation aerosol 2 puff(s), Inhalation, q4h, PRN as needed for wheezing, # 6.7 gram(s), 0 Refill(s), Pharmacy: [facility]/pharmacy #[id number], Asthma, 173, cm, 11/14/22 15:29:00 EST, Height, kg, 11/14/22 15:29:00 EST, Dosing Weight Start Date: 11/14/22 Stop Date: 12/14/22 Status: Ordered Start: 08-04-2020 take 1 puff(s) by in halation every four hours as needed for wheezing Ventolin HFA MDI (90 mcg/inh) inhalation aerosol 1 puff(s), Inhalation, q4h, PRN as needed for wheezing, # 8 gram(s), 1 Refill(s), Pharmacy: [facility]/pharmacy #[id number], Asthma, 170.2, cm, 08/04/20 15:32:00 EDT, Height, kg, 08/04/20 15:32:00 EDT, Dosing Weight Start Date: 08/04/20 Status: Ordered cholecalciferol, vitamin D3, (VITAMIN D3 ORAL) (1 source) cholecalciferol, vitamin D3, (VITAMIN D3 ORAL) Take by mouth. 0 Active Comment on above: Take by mouth. ezetimibe 10 mg oral tablet (18 sources) Dietary Cholesterol Absorption Inhibitor Start: 03-16-2023 End: 12-05-2024 ezetimibe 10 mg oral tablet Dose : 10 mg = 1 tab(s), Oral, qDay, # 90 tab(s), 3 Refill(s), Pharmacy: [facility]/pharmacy #[id number], Mixed hyperlipidemia, 173.3, cm, 12/11/23 16:34:00 EST, Height, kg, 12/11/23 16:34:00 EST, Dosing Weight Start Date: 12/11/23 Stop Date: 12/05/24 Status: Ordered Quantity: 90.0 Unit: tab(s) Repeat number: 4 Indication: Mixed hyperlipidemia Start: 05-04-2021 End: 12-01-2022 ezetimibe 10 mg oral tablet Dose : 10 mg = 1 tab(s), Oral, qDay, # 90 tab(s), 3 Refill(s), Pharmacy: [facility]/pharmacy #[id number], Mixed hyperlipidemia, 173, cm, 12/06/21 16:24:00 EST, Height, kg, 12/06/21 16:24:00 EST, Dosing Weight Start Date: 12/06/21 Stop Date: 12/01/22 Status: Ordered Comment on above: Take 10 mg by mouth once daily. fexofenadine hydrochloride 180 mg oral tablet (16 sources) Histamine-1 Receptor Antagonist Start: 05-04-2021 End: 12-01-2022 fexofenadine 180 mg oral tablet Dose : 180 mg = 1 tab(s), Oral, qDay, # 90 tab(s), 3 Refill(s), Pharmacy: [facility]/pharmacy #[id number], 173, cm, 12/06/21 16:24:00 EST, Height, kg, 12/06/21 16:24:00 EST, Dosing Weight Start Date: 12/06/21 Stop Date: 12/01/22 Status: Ordered Quantity: 90.0 Unit: tab(s) Repeat number: 4 Quercetin (12 sources) Start: 10-27-2021 Quercetin Quercetin, 1 tab, Oral, Daily, respiratory health, 0 Refill(s), 77.3 Start Date: 10/27/21 Status: Ordered Start: 10-27-2021 Quercetin Quer cetin, respiratory health, 0 Refill(s), 77.3 Start Date: 10/27/21 Status: Ordered Problems Problem Classification Problem Date Documented Date Episodic/Chronic Abdominal hernia (5 sources) Right inguinal hernia 12-11-2023 Episodic Anxiety disorders (1 source) Other specified nonpsychotic mental disorders; Translations: [Other specified nonpsychotic mental disorders] Onset: 02-14-2024 Chronic Asthma (18 sources) Asthma; Translations: [Moderate persistent asthma] Onset: 12-05-2024 01-23-2020 Chronic Cardiac and circulatory congenital anomalies (1 source) Patent foramen ovale 07-10-2024 Chronic Diabetes mellitus without complication (7 sources) Hyperglycemia; Translations: [Prediabetes] 05-04-2021 Episodic Disorders of lipid metabolism (20 sources) Mixed hyperlipidemia; Translations: [Mixed hyperlipidemia] Onset: 05-24-2017 01-23-2020 Chronic Esophageal disorders (20 sources) Gastroesophageal reflux disease; Translations: [Gastro-esophageal reflux disease without esophagitis] Onset: 06-17-2024 01-23-2020 Chronic Nonspecific chest pain (12 sources) Chest pain on exertion 12-12-2022 Episodic Other aftercare (1 source) Follow-up status; Translations: [Encounter for follow-up examination after completed treatment for conditions other than malignant neoplasm] Episodic Other aftercare (7 sources) Surgical follow-up 02-20-2024 Episodic Other aftercare (2 sources) Other intermediate project manager (current) drug therapy; Translations: [Other intermediate project manager (current) drug therapy] Onset: 12-05-2024 Episodic Other circulatory disease (5 sources) History of transient ischemic attack 03-17-2024 Episodic Other connective tissue disease (16 sources) Biceps tendinitis 05-04-2021 Episodic Other connective tissue disease (16 sources) Impingement syndrome of shoulder region 05-04-2021 Episodic Other connective tissue disease (12 sources) Pain in finger 12-12-2022 Episodic Other connective tissue disease (4 sources) Transient neurological symptoms 03-21-2024 Episodic Other injuries and conditions due to external causes (2 sources) Injury of finger 12-06-2021 Episodic Other liver diseases (17 sources) Steatosis of liver; Translations: [Fatty (change of) liver, not elsewhere classified] 01-23-2020 Chronic Other lower respiratory disease (4 sources) Dyspnea on exertion 03-21-2024 Episodic Other nervous system disorders (1 source) Postoperative pain ; Translations: [Other acute postprocedural pain] Onset: 02-07-2024 Episodic Other nutritional; endocrine; and metabolic disorders (16 sources) Body mass index 25-29 - overweight 05-04-2021 Episodic Other nutritional; endocrine; and metabolic disorders (4 sources) Overweight 05-04-2021 Episodic Other nutritional; endocrine; and metabolic disorders (10 sources) H/O: endocrine disorder 12-11-2023 Episodic Other screening for suspected conditions (not mental disorders or infectious disease) (4 sources) Echocardiogram abnormal 03-21-2024 Episodic Other upper respiratory disease (16 sources) Seasonal allergy 05-04-2021 Chronic Other upper respiratory infections (1 source) Viral upper respiratory tract infection 11-14-2022 Episodic Residual codes; unclassified (1 source) Immunization due 12-06-2021 Episodic Residual codes; unclassified (4 sources) Personal history of other specified conditions; Translations: [Personal history of other specified conditions] Onset: 06-17-2024 Episodic Spondylosis; intervertebral disc disorders; other back problems (13 sources) Cervical radiculopathy 06-06-2022 Episodic Transient cerebral ischemia (1 source) Transient cerebral ischemia; Translations: [Transient cerebral ischemic attack, unspecified] 02-09-2024 Chronic Unclassified (16 sources) Patient encounter status 05-04-2021 Unclassified (14 sources) Medication refused 12-06-2021 Unclassified (13 sources) Long-term current use of proton pump inhibitor therapy 06-06-2022 Results Test Name Value Interpretation Reference Range Facility .Auto Diffon 12-05-2024 Basophil, Absolute 0.0 10 3/mcL Normal 0.0-0.2 [facility] Comment on above: Performed By: #### B 12 #### [place] [address] #### CBC, ANEU, LIPID, GFR, A1C, ADIFF, PSA, CMP #### [address] [address] Basophils/100 WBC (Bld) 0.6 % Normal 0.0-2.5 [facility] Comment on above: Performed By: #### B 12 #### [place] [address] #### CBC, ANEU, LIPID, GFR, A1C, ADIFF, PSA, CMP #### [address] [address] Eosinophil, Absolute 0.1 10 3/mcL Normal 0.0-0.7 [facility] Comment on above: Performed By: #### B 12 #### [place] [address] #### CBC, ANEU, LIPID, GFR, A1C, ADIFF, PSA, CMP #### [address] [address] Eosinophils/100 WBC (Bld) 2.6 % Normal 0.0-7.0 [facility] Comment on above: Performed By: #### B 12 #### [place] [address] #### CBC, ANEU, LIPID, GFR, A1C, ADIFF, PSA, CMP #### [address] [address] Lymphocyte, Absolute 1.5 10 3/mcL Normal 0.9-4.3 [facility] Comment on above: Performed By: #### B 12 #### [place] [address] #### CBC, ANEU, LIPID, GFR, A1C, ADIFF, PSA, CMP #### [address] [address] Lymphocytes/100 WBC (Bld) 28.6 % Normal 20.0-40.0 [facility] Comment on above: Performed By: #### B 12 #### [place] [address] #### CBC, ANEU, LIPID, GFR, A1C, ADIFF, PSA, CMP #### [address] [address] Monocyte, Absolute 0.4 10 3/mcL Normal 0.1-1.4 [facility] Comment on above: Performed By: #### B 12 #### [address] [address] #### CBC, ANEU, LIPID, GFR, A1C, ADIFF, PSA, CMP #### [address] [address] Monocytes/100 WBC (Bld) 8.1 % Normal 2.0-13.0 [facility] Comment on above: Performed By: #### B 12 #### [address] [address] #### CBC, ANEU, LIPID, GFR, A1C, ADIFF, PSA, CMP #### [address] [address] Neutrophils/100 WBC (Bld) 60.1 % Normal 50.0-75.0 [facility] Comment on above: Performed By: #### B 12 #### [address] [address] #### CBC, ANEU, LIPID, GFR, A1C, ADIFF, PSA, CMP #### [address] [address] .GFRon 12-05-2024 GFR 105 ml/min/1.73sqm Normal [facility] Comment on above: Result Comment: GFR Population mean for , Non- Americans Ages 20-29 = 116 mL/min/1.73 sq.m. Ages 30-39 = 107 mL/min/1.73 sq.m. Ages 40-49 = 99 mL/min/1.73 sq.m. Ages 50-59 = 93 mL/min/1.73 sq.m. Ages 60-69 = 85 mL/min/1.73 sq.m. Ages 70+ = 75 mL/min/1.73 sq.m. Chronic Kidney Disease: Less than 60 mL/min/1.73 square meters End Stage Renal Disease: Less than 15 mL/min/1.73 square meters Performed By: #### B 12 #### [address] [address] #### CBC, ANEU, LIPID, GFR, A1C, ADIFF, PSA, CMP #### [address] [address] GFR Non- 87 ml/min/1.73sqm Normal [facility] Comment on above: Result Comment: GFR Population mean for , Non- Americans Ages 20-29 = 116 mL/min/1.73 sq.m. Ages 30-39 = 107 mL/min/1.73 sq.m. Ages 40-49 = 99 mL/min/1.73 sq.m. Ages 50-59 = 93 mL/min/1.73 sq.m. Ages 60-69 = 85 mL/min/1.73 sq.m. Ages 70+ = 75 mL/min/1.73 sq.m. Chronic Kidney Disease: Less than 60 mL/min/1.73 square meters End Stage Renal Disease: Less than 15 mL/min/1.73 square meters Performed By: #### B 12 #### [place] [address] #### CBC, ANEU, LIPID, GFR, A1C, ADIFF, PSA, CMP #### [address] [address] .NEUABSon 12-05-2024 Neutrophil, Absolute 3.2 10 3/mcL Normal 2.3-8.1 [facility] Comment on above: Performed By: #### B 12 #### [place] [address] #### CBC, ANEU, LIPID, GFR, A1C, ADIFF, PSA, CMP #### [address] [address] A1Con 12-05-2024 Glucose [Mass/Vol] 126 mg/dL Normal [facility] Comment on above: Result Comment: Kimberly mated Average Glucose calculated by equation ((28.7xA1C)-46.7) Estimated average glucose (eAG) is a calculated value from Hemoglobin A1C and is entry level sales representative of the average blood glucose level in the last 2-3 month period. Normal range: less than 114 mg/dL Performed By: #### B 12 #### [place] [address] #### CBC, ANEU, LIPID, GFR, A1C, ADIFF, PSA, CMP #### [address] [address] HbA1c (Bld) [Mass fraction] 6.0 % Normal 4.3-6.4 [facility] Comment on above: Performed By: #### B 12 #### [place] [address] #### CBC, ANEU, LIPID, GFR, A1C, ADIFF, PSA, CMP #### [address] [address] B12on 12-05-2024 Cobalamin (Vitamin B12) [Mass/Vol] 406 pg/mL Normal 211-911 [facility] Comment on above: Performed By: #### B 12 #### [place] [address] #### CBC, ANEU, LIPID, GFR, A1C, ADIFF, PSA, CMP #### [address] [address] CBCon 12-05-2024 Erythrocyte distribution width (RBC) [Ratio] 13.0 % Normal 11.5-15.5 [facility] Comment on above: Performed By: #### B 12 #### [place] [address] #### CBC, ANEU, LIPID, GFR, A1C, ADIFF, PSA, CMP #### [address] [address] Hematocrit (Bld) [Volume fraction] 42.8 % Normal 40.0-52.0 [facility] Comment on above: Performed By: #### B 12 #### [place] [address] #### CBC, ANEU, LIPID, GFR, A1C, ADIFF, PSA, CMP #### [place] [id number] Hgb 14.9 G/dL Normal 13.0-17.5 [facility] Comment on above: Performed By: #### B 12 #### [place] [address] #### CBC, ANEU, LIPID, GFR, A1C, ADIFF, PSA, CMP #### [address] [address] MCH (RBC) [Entitic mass] 30.2 pg Normal 27.0-33.0 [facility] Comment on above: Performed By: #### B 12 #### [place] [address] #### CBC, ANEU, LIPID, GFR, A1C, ADIFF, PSA, CMP #### [place] [address] MCHC 34.7 G/dL Normal 32.0-36.0 [facility] Comment on above: Performed By: #### B 12 #### [place] [address] #### CBC, ANEU, LIPID, GFR, A1C, ADIFF, PSA, CMP #### [place] [address] MCV (RBC) [Entitic vol] 86.9 fL Normal 81.0-100.0 [facility] Comment on above: Performed By: #### B 12 #### [place] [address] #### CBC, ANEU, LIPID, GFR, A1C, ADIFF, PSA, CMP #### [address] [address] Platelet 261 10 3/mcL Normal 150-450 [facility] Comment on above: Performed By: #### B 12 #### [place] [address] #### CBC, ANEU, LIPID, GFR, A1C, ADIFF, PSA, CMP #### [address] [address] Platelet mean volume (Bld) [Entitic vol] 8.3 fL Normal 6.4-10.5 [facility] Comment on above: Performed By: #### B 12 #### [place] [address] #### CBC, ANEU, LIPID, GFR, A1C, ADIFF, PSA, CMP #### [address] [address] RBC 4.93 10 6/mcL Normal 4.50-6.00 [facility] Comment on above: Performed By: #### B 12 #### [place] [address] #### CBC, ANEU, LIPID, GFR, A1C, ADIFF, PSA, CMP #### [address] [address] WBC 5.4 10 3/mcL Normal 4.5-10.8 [facility] Comment on above: Performed By: #### B 12 #### [place] [address] #### CBC, ANEU, LIPID, GFR, A1C, ADIFF, PSA, CMP #### [address] [address] CMPon 12-05-2024 Albumin Level 4.3 G/dL Normal 3.5-5.0 [facility] Comment on above: Performed By: #### B 12 #### [place] [address] #### CBC, ANEU, LIPID, GFR, A1C, ADIFF, PSA, CMP #### [address] [address] Albumin/Globulin [Mass ratio] 1.4 {ratio} Normal 1.1-2.5 [facility] Comment on above: Performed By: #### B 12 #### [place] [address] #### CBC, ANEU, LIPID, GFR, A1C, ADIFF, PSA, CMP #### [address] [address] ALP [Catalytic activity/Vol] 64 U/L Normal 40-135 [facility] Comment on above: Performed By: #### B 12 #### [place] [address] #### CBC, ANEU, LIPID, GFR, A1C, ADIFF, PSA, CMP #### [address] [address] ALT [Catalytic activity/Vol] 70 U/L High 16-63 [facility] Comment on above: Performed By: #### B 12 #### [place] [address] #### CBC, ANEU, LIPID, GFR, A1C, ADIFF, PSA, CMP #### [address] [address] AST [Catalytic activity/Vol] 28 U/L Normal 10-40 [facility] Comment on above: Performed By: #### B 12 #### [place] [address] #### CBC, ANEU, LIPID, GFR, A1C, ADIFF, PSA, CMP #### [address] [address] Bili Total 0.6 mg/dL Normal 0.2-1.0 [facility] Comment on above: Result Comment: Use of this assay is not recommended for patients undergoing treatment with eltrombopag due to the potential for falsely elevated results. Performed By: #### B 12 #### [place] [address] #### CBC, ANEU, LIPID, GFR, A1C, ADIFF, PSA, CMP #### [address] [address] BUN/Creatinine Ratio 15 ratio Normal 7-27 [facility] Comment on above: Performed By: #### B 12 #### [place] [address] #### CBC, ANEU, LIPID, GFR, A1C, ADIFF, PSA, CMP #### [address] [address] Calcium [Mass/Vol] 9.4 mg/dL Normal 8.4-10.2 [facility] Comment on above: Performed By: #### B 12 #### [address] [address] #### CBC, ANEU, LIPID, GFR, A1C, ADIFF, PSA, CMP #### [address] [address] Chloride [Moles/Vol] 105 mmol/L Normal 98-107 [facility] Comment on above: Performed By: #### B 12 #### [place] [address] #### CBC, ANEU, LIPID, GFR, A1C, ADIFF, PSA, CMP #### [address] [address] CO2 [Moles/Vol] 30 mmol/L High 22-29 [facility] Comment on above: Performed By: #### B 12 #### [place] [address] #### CBC, ANEU, LIPID, GFR, A1C, ADIFF, PSA, CMP #### [address] [address] Creatinine [Mass/Vol] 0.91 mg/dL Normal 0.70-1.30 [facility] Comment on above: Result Comment: Test ing performed on Siemens Dimension EXL analyzer using a modified kinetic Ramírez technique. Performed By: #### B 12 #### [place] [address] #### CBC, ANEU, LIPID, GFR, A1C, ADIFF, PSA, CMP #### [address] [address] Electrolyte Balance 8.0 mEq/L Normal 4.0-15.0 [facility] Comment on above: Performed By: #### B 12 #### [place] [address] #### CBC, ANEU, LIPID, GFR, A1C, ADIFF, PSA, CMP #### [address] [address] Globulin 3.1 G/dL Normal [facility] Comment on above: Performed By: #### B 12 #### [place] [address] #### CBC, ANEU, LIPID, GFR, A1C, ADIFF, PSA, CMP #### [address] [address] Glucose [Mass/Vol] 107 mg/dL High 70-105 [facility] Comment on above: Performed By: #### B 12 #### [place] [address] #### CBC, ANEU, LIPID, GFR, A1C, ADIFF, PSA, CMP #### [address] [address] Potassium [Moles/Vol] 4.0 mmol/L Normal 3.5-5.1 [facility] Comment on above: Performed By: #### B 12 #### [place] [address] #### CBC, ANEU, LIPID, GFR, A1C, ADIFF, PSA, CMP #### [address] [address] Sodium [Moles/Vol] 143 mmol/L Normal 136-145 [facility] Comment on above: Performed By: #### B 12 #### [place] [address] #### CBC, ANEU, LIPID, GFR, A1C, ADIFF, PSA, CMP #### [address] [address] Total Protein 7.4 G/dL Normal 6.4-8.2 [facility] Comment on above: Performed By: #### B 12 #### [place] [address] #### CBC, ANEU, LIPID, GFR, A1C, ADIFF, PSA, CMP #### [address] [address] Urea nitrogen [Mass/Vol] 14 mg/dL Normal 7-18 [facility] Comment on above: Performed By: #### B 12 #### [place] [address] #### CBC, ANEU, LIPID, GFR, A1C, ADIFF, PSA, CMP #### [place] [id number] [place], [place] [address] LABORATORYOrdered By: SYSTEM SYSTEM on 12-05-2024 Albumin BCP dye [Mass/Vol] 4.3 G/dL Normal 3.5 - 5.0 G/dL AO ADM SS Albumin/Globulin [Mass ratio] 1.4 {ratio} Normal 1.1 - 2.5 ratio AO ADM SS ALP [Catalytic activity/Vol] 64 U/L Normal 40 - 135 U/L AO ADM SS ALT With P-5'-P [Catalytic activity/Vol] 70 U/L High 16 - 63 U/L AO ADM SS AST With P-5'-P [Catalytic activity/Vol] 28 U/L Normal 10 - 40 U/L AO ADM SS Basophils (Bld) [#/Vol] 0.0 103/mcL Normal 0.0 - 0.2 10^3/mcL AO Workflow SS Basophils/100 WBC (Bld) 0.6 % Normal 0.0 - 2.5 % AO Workflow SS Bilirubin [Mass/Vol] 0.6 mg/dL Normal 0.2 - 1 .0 mg/dL AO ADM SS Comment on above: Interpretive Data: U se of this assay is not recommended for patients undergoing treatment with eltrombopag due to the potential for falsely elevated results. Calcium [Mass/Vol] 9.4 mg/dL Normal 8.4 - 10. 2 mg/dL AO ADM SS Chloride [Moles/Vol] 105 mmol/L Normal 98 - 10 7 mmol/L AO ADM SS CO2 [Moles/Vol] 30 mmol/L High 22 - 29 mmol/L AO ADM SS Cobalamin (Vitamin B12) [Mass/Vol] 406 pg/mL Normal 211 - 911 pg/mL AH ADM SS Creatinine [Mass/Vol] 0.91 mg/dL Normal 0.70 - 1.30 mg/dL AO ADM SS Comment on above: Interpretive Data: T esting performed on Siemens Dimension EXL analyzer using a modified kinetic Ramírez technique. Electrolyte Balance 8.0 mEq/L Normal 4.0 - 15 .0 mEq/L AO ADM SS Eosinophil, Absolute 0.1 103/mcL Normal 0.0 - 0 .7 10^3/mcL AO Workflow SS Eosinophils/100 WBC (Bld) 2.6 % Normal 0.0 - 7.0 % AO Workflow SS Erythrocyte distribution width (RBC) [Ratio] 13.0 % Normal 11.5 - 15.5 % AO Workflow SS GFR/1.73 sq M.predicted among blacks MDRD (S/P/Bld) [Vol rate/Area] 105 ml/min/1.73sqm Invalid Interpretation Code AO Chemistry S Comment on above: Interpretive Data: GFR Population mean for , Non- Americans Ages 20-29 = 116 mL/min/1.73 sq.m. Ages 30-39 = 107 mL/min/1.73 sq.m. Ages 40-49 = 99 mL/min/1.73 sq.m. Ages 50-59 = 93 mL/min/1.73 sq.m. Ages 60-69 = 85 mL/min/1.73 sq.m. Ages 70+ = 75 mL/min/1.73 sq.m. Chronic Kidney Disease: Less than 60 mL/min/1.73 square meters End Stage Renal Disease: Less than 15 mL/min/1.73 square meters GFR/1.73 sq M.predicted among non-blacks MDRD (S/P/Bld) [Vol rate/Area] 87 ml/min/1.73sqm Invalid Interpretation Code AO Chemistry S Comment on above: Interpretive Data: GFR Population mean for , Non- Americans Ages 20-29 = 116 mL/min/1.73 sq.m. Ages 30-39 = 107 mL/min/1.73 sq.m. Ages 40-49 = 99 mL/min/1.73 sq.m. Ages 50-59 = 93 mL/min/1.73 sq.m. Ages 60-69 = 85 mL/min/1.73 sq.m. Ages 70+ = 75 mL/min/1.73 sq.m. Chronic Kidney Disease: Less than 60 mL/min/1.73 square meters End Stage Renal Disease: Less than 15 mL/min/1.73 square meters Globulin 3.1 G/dL Invalid Interpretation Code AO ADM SS Glucose [Mass/Vol] 107 mg/dL High 70 - 105 mg/dL AO ADM SS Glucose [Mass/Vol] 126 mg/dL Invalid Interpretation Code AO Chemistry S Comment on above: Interpretive Data: E stimated average glucose (eAG) is a calculated value from Hemoglobin A1C and is entry level sales representative of the average blood glucose level in the last 2-3 month period. Normal range: less than 114 mg/dL HbA1c (Bld) [Mass fraction] 6.0 % Normal 4.3 - 6.4 % AO ADM SS Hematocrit (Bld) [Volume fraction] 42.8 % Normal 40.0 - 52.0 % AO Workflow SS Hemoglobin (Bld) [Mass/Vol] 14.9 G/dL Normal 13.0 - 17.5 G/dL AO Workflow SS Lymphocytes (Bld) [#/Vol] 1.5 103/mcL Normal 0.9 - 4.3 10^3/mcL AO Workflow SS Lymphocytes/100 WBC (Bld) 28.6 % Normal 20.0 - 40.0 % AO Workflow SS MCH (RBC) [Entitic mass] 30.2 pg Normal 27.0 - 33.0 pg AO Workflow SS MCHC 34.7 G/dL Normal 32.0 - 36.0 G/dL AO Workflow SS MCV (RBC) [Entitic vol] 86.9 fL Normal 81.0 - 100.0 fL AO Workflow SS Monocytes (Bld) [#/Vol] 0.4 103/mcL Normal 0.1 - 1.4 10^3/mcL AO Workflow SS Monocytes/100 WBC (Bld) 8.1 % Normal 2.0 - 13.0 % AO Workflow SS Neutrophils (Bld) [#/Vol] 3.2 103/mcL Normal 2.3 - 8.1 10^3/mcL AO Workflow SS Neutrophils/100 WBC (Bld) 60.1 % Normal 50.0 - 75.0 % AO Workflow SS Platelet mean volume (Bld) [Entitic vol] 8.3 fL Normal 6.4 - 10.5 fL AO Workflow SS Platelets (Bld) [#/Vol] 261 103/mcL Normal 150 - 450 10^3/mcL AO Workflow SS Potassium [Moles/Vol] 4.0 mmol/L Normal 3.5 - 5.1 mmol/L AO ADM SS Prostate specific Ag [Mass/Vol] 3.96 ng/mL Normal 0.00 - 4.00 ng/mL AO ADM SS Protein [Mass/Vol] 7.4 G/dL Normal 6.4 - 8.2 G/dL AO ADM SS RBC (Bld) [#/Vol] 4.93 106/mcL Normal 4.50 - 6.0 0 10^6/mcL AO Workflow SS Sodium [Moles/Vol] 143 mmol/L Normal 136 - 145 mmol/L AO ADM SS TSH Qn 0.99 m[IU]/L Normal 0.36 - 3.74 mcIU/mL AO ADM SS Urea nitrogen [Mass/Vol] 14 mg/dL Normal 7 - 18 mg/dL AO ADM SS Urea nitrogen/Creatinine [Mass ratio] 15 ratio Normal 7 - 27 ratio AO ADM SS WBC (Bld) [#/Vol] 5.4 103/mcL Normal 4.5 - 10.8 10^3/mcL AO Workflow SS LABORATORYOrdered By: Clinton Giles on 12-05-2024 Cholesterol [Mass/Vol] 135 mg/dL Normal 0 - 200 mg/dL AO ADM SS Comment on above: Interpretive Data: C holesterol Reference Interval: Less than 200 Desirable 200-239 Borderline high risk 240 and above High risk Cholesterol in HDL [Mass/Vol] 52 mg/dL Normal 40 - 60 mg/dL AO ADM SS Cholesterol in LDL [Mass/Vol] 63 mg/dL Normal 0 - 130 mg/dL AO ADM SS Triglyceride [Mass/Vol] 100 mg/dL Normal 0 - 150 mg/dL AO ADM SS Comment on above: Interpretive Data: T riglyceride Reference Interval: Less than 150 Normal 150-199 Borderline high risk 200-499 High risk 500 or higher Very high risk LIPIDon 12-05-2024 Cholesterol [Mass/Vol] 135 mg/dL Normal 0-200 [facility] Comment on above: Result Comment: Chol esterol Reference Interval: Less than 200 Desirable 200-239 Borderline high risk 240 and above High risk Performed By: #### B 12 #### [address] [address] #### CBC, ANEU, LIPID, GFR, A1C, ADIFF, PSA, CMP #### [place] [id number] [place], [place] [address] Cholesterol in HDL [Mass/Vol] 52 mg/dL Normal 40-60 [facility] Comment on above: Performed By: #### B 12 #### [address] [address] #### CBC, ANEU, LIPID, GFR, A1C, ADIFF, PSA, CMP #### [address] [address] Cholesterol in LDL [Mass/Vol] 63 mg/dL Normal 0-130 [facility] Comment on above: Performed By: #### B 12 #### [address] [address] #### CBC, ANEU, LIPID, GFR, A1C, ADIFF, PSA, CMP #### [address] [address] Triglyceride [Mass/Vol] 100 mg/dL Normal 0-150 [facility] Comment on above: Result Comment: Trig lyceride Reference Interval: Less than 150 Normal 150-199 Borderline high risk 200-499 High risk 500 or higher Very high risk Performed By: #### B 12 #### [place] [address] #### CBC, ANEU, LIPID, GFR, A1C, ADIFF, PSA, CMP #### [address] [address] PSAon 12-05-2024 Prostate Specific Antigen 3.96 ng/mL Normal 0.00-4.00 [facility] Comment on above: Performed By: #### B 12 #### [place] [address] #### CBC, ANEU, LIPID, GFR, A1C, ADIFF, PSA, CMP #### [address] [address] TSHRon 12-05-2024 TSH Qn 0.99 m[IU]/L Normal 0.36-3.74 [facility] Comment on above: Performed By: #### T SHR #### [address] [address] .GFRon 06-17-2024 GFR 89 ml/min/1.73sqm Normal [facility] ([place]) Comment on above: Result Comment: GFR Population mean for , Non- Americans Ages 20-29 = 116 mL/min/1.73 sq.m. Ages 30-39 = 107 mL/min/1.73 sq.m. Ages 40-49 = 99 mL/min/1.73 sq.m. Ages 50-59 = 93 mL/min/1.73 sq.m. Ages 60-69 = 85 mL/min/1.73 sq.m. Ages 70+ = 75 mL/min/1.73 sq.m. Chronic Kidney Disease: Less than 60 mL/min/1.73 square meters End Stage Renal Disease: Less than 15 mL/min/1.73 square meters Performed By: #### G FR, CMP, A1C, LIPID #### [address] [address] #### B12 #### [address] [address] GFR Non- 74 ml/min/1.73sqm Normal [facility] ([place]) Comment on above: Result Comment: GFR Population mean for , Non- Americans Ages 20-29 = 116 mL/min/1.73 sq.m. Ages 30-39 = 107 mL/min/1.73 sq.m. Ages 40-49 = 99 mL/min/1.73 sq.m. Ages 50-59 = 93 mL/min/1.73 sq.m. Ages 60-69 = 85 mL/min/1.73 sq.m. Ages 70+ = 75 mL/min/1.73 sq.m. Chronic Kidney Disease: Less than 60 mL/min/1.73 square meters End Stage Renal Disease: Less than 15 mL/min/1.73 square meters Performed By: #### G FR, CMP, A1C, LIPID #### [address] [address] #### B12 #### [address] [address] A1Con 06-17-2024 Glucose [Mass/Vol] 123 mg/dL Normal [facility] ([place]) Comment on above: Result Comment: Kimberly mated Average Glucose calculated by equation ((28.7xA1C)-46.7) Estimated average glucose (eAG) is a calculated value from Hemoglobin A1C and is entry level sales representative of the average blood glucose level in the last 2-3 month period. Normal range: less than 114 mg/dL Performed By: #### G FR, CMP, A1C, LIPID #### [address] [address] #### B12 #### [address] [address] HbA1c (Bld) [Mass fraction] 5.9 % Normal 4.3-6.4 [facility] ([place]) Comment on above: Performed By: #### G FR, CMP, A1C, LIPID #### [place] [address] #### B12 #### [address] [address] B12on 06-17-2024 Cobalamin (Vitamin B12) [Mass/Vol] 347 pg/mL Normal 211-911 [facility] ([place]) Comment on above: Performed By: #### G FR, CMP, A1C, LIPID #### [place] [address] #### B12 #### [place] [address] CMPon 06-17-2024 Albumin Level 4.1 G/dL Normal 3.5-5.0 [facility] ([place]) Comment on above: Performed By: #### G FR, CMP, A1C, LIPID #### [place] [id number] #### B12 #### [place] [address] Albumin/Globulin [Mass ratio] 1.5 {ratio} Normal 1.1-2.5 [facility] ([place]) Comment on above: Performed By: #### G FR, CMP, A1C, LIPID #### [place] [id number] #### B12 #### [place] [id number] ALP [Catalytic activity/Vol] 61 U/L Normal 40-135 [facility] ([place]) Comment on above: Performed By: #### G FR, CMP, A1C, LIPID #### [address] [address] #### B12 #### [address] [address] ALT [Catalytic activity/Vol] 93 U/L High 16-63 [facility] ([place]) Comment on above: Performed By: #### G FR, CMP, A1C, LIPID #### [place] [address] #### B12 #### [address] [address] AST [Catalytic activity/Vol] 31 U/L Normal 10-40 [facility] ([place]) Comment on above: Performed By: #### G FR, CMP, A1C, LIPID #### [place] [address] #### B12 #### [address] [address] Bili Total 0.6 mg/dL Normal 0.2-1.0 [facility] ([place]) Comment on above: Result Comment: Use of this assay is not recommended for patients undergoing treatment with eltrombopag due to the potential for falsely elevated results. Performed By: #### G FR, CMP, A1C, LIPID #### [place] [address] #### B12 #### [address] [address] BUN/Creatinine Ratio 10 ratio Normal 7-27 [facility] ([place]) Comment on above: Performed By: #### G FR, CMP, A1C, LIPID #### [place] [address] #### B12 #### [address] [address] Calcium [Mass/Vol] 8.8 mg/dL Normal 8.4-10.2 [facility] ([place]) Comment on above: Performed By: #### G FR, CMP, A1C, LIPID #### [place] [address] #### B12 #### [address] [address] Chloride [Moles/Vol] 104 mmol/L Normal 98-107 [facility] ([place]) Comment on above: Performed By: #### G FR, CMP, A1C, LIPID #### [address] [address] #### B12 #### [address] [address] CO2 [Moles/Vol] 30 mmol/L High 22-29 [facility] ([place]) Comment on above: Performed By: #### G FR, CMP, A1C, LIPID #### [address] [address] #### B12 #### [address] [address] Creatinine [Mass/Vol] 1.05 mg/dL Normal 0.70-1.30 [facility] Comment on above: Performed By: #### G FR, CMP, A1C, LIPID #### [place] [address] #### B12 #### [address] [address] Electrolyte Balance 9.0 mEq/L Normal 4.0-15.0 [facility] ([place]) Comment on above: Performed By: #### G FR, CMP, A1C, LIPID #### [address] [address] #### B12 #### [address] [address] Globulin 2.8 G/dL Normal [facility] ([place]) Comment on above: Performed By: #### G FR, CMP, A1C, LIPID #### [address] [address] #### B12 #### [address] [address] Glucose [Mass/Vol] 103 mg/dL Normal 70-105 [facility] ([place]) Comment on above: Performed By: #### G FR, CMP, A1C, LIPID #### [place] [address] #### B12 #### [address] [address] Potassium [Moles/Vol] 4.0 mmol/L Normal 3.5-5.1 [facility] Comment on above: Performed By: #### G FR, CMP, A1C, LIPID #### [address] [address] #### B12 #### [place] [address] Sodium [Moles/Vol] 143 mmol/L Normal 136-145 [facility] ([place]) Comment on above: Performed By: #### G FR, CMP, A1C, LIPID #### [place] [address] #### B12 #### [place] [address] Total Protein 6.9 G/dL Normal 6.4-8.2 [facility] ([place]) Comment on above: Performed By: #### G FR, CMP, A1C, LIPID #### [place] [address] #### B12 #### [place] [address] Urea nitrogen [Mass/Vol] 11 mg/dL Normal 7-18 [facility] ([place]) Comment on above: Performed By: #### G FR, CMP, A1C, LIPID #### [place] [address] #### B12 #### [place] [address] LABORATORYOrdered By: SYSTEM SYSTEM on 06-17-2024 Albumin BCP dye [Mass/Vol] 4.1 G/dL Normal 3.5 - 5.0 G/dL AO ADM SS Albumin/Globulin [Mass ratio] 1.5 {ratio} Normal 1.1 - 2.5 ratio AO ADM SS ALP [Catalytic activity/Vol] 61 U/L Normal 40 - 135 U/L AO ADM SS ALT With P-5'-P [Catalytic activity/Vol] 93 U/L High 16 - 63 U/L AO ADM SS AST With P-5'-P [Catalytic activity/Vol] 31 U/L Normal 10 - 40 U/L AO ADM SS Bilirubin [Mass/Vol] 0.6 mg/dL Normal 0.2 - 1 .0 mg/dL AO ADM SS Comment on above: Interpretive Data: U se of this assay is not recommended for patients undergoing treatment with eltrombopag due to the potential for falsely elevated results. Calcium [Mass/Vol] 8.8 mg/dL Normal 8.4 - 10. 2 mg/dL AO ADM SS Chloride [Moles/Vol] 104 mmol/L Normal 98 - 10 7 mmol/L AO ADM SS CO2 [Moles/Vol] 30 mmol/L High 22 - 29 mmol/L AO ADM SS Cobalamin (Vitamin B12) [Mass/Vol] 347 pg/mL Normal 211 - 911 pg/mL AH ADM SS Creatinine [Mass/Vol] 1.05 mg/dL Normal 0.70 - 1.30 mg/dL AO ADM SS Electrolyte Balance 9.0 mEq/L Normal 4.0 - 15 .0 mEq/L AO ADM SS GFR/1.73 sq M.predicted among blacks MDRD (S/P/Bld) [Vol rate/Area] 89 ml/min/1.73sqm Invalid Interpretation Code AO Chemistry S Comment on above: Interpretive Data: GFR Population mean for , Non- Americans Ages 20-29 = 116 mL/min/1.73 sq.m. Ages 30-39 = 107 mL/min/1.73 sq.m. Ages 40-49 = 99 mL/min/1.73 sq.m. Ages 50-59 = 93 mL/min/1.73 sq.m. Ages 60-69 = 85 mL/min/1.73 sq.m. Ages 70+ = 75 mL/min/1.73 sq.m. Chronic Kidney Disease: Less than 60 mL/min/1.73 square meters End Stage Renal Disease: Less than 15 mL/min/1.73 square meters GFR/1.73 sq M.predicted among non-blacks MDRD (S/P/Bld) [Vol rate/Area] 74 ml/min/1.73sqm Invalid Interpretation Code AO Chemistry S Comment on above: Interpretive Data: GFR Population mean for , Non- Americans Ages 20-29 = 116 mL/min/1.73 sq.m. Ages 30-39 = 107 mL/min/1.73 sq.m. Ages 40-49 = 99 mL/min/1.73 sq.m. Ages 50-59 = 93 mL/min/1.73 sq.m. Ages 60-69 = 85 mL/min/1.73 sq.m. Ages 70+ = 75 mL/min/1.73 sq.m. Chronic Kidney Disease: Less than 60 mL/min/1.73 square meters End Stage Renal Disease: Less than 15 mL/min/1.73 square meters Globulin 2.8 G/dL Invalid Interpretation Code AO ADM SS Glucose [Mass/Vol] 103 mg/dL Normal 70 - 105 mg/dL AO ADM SS Glucose [Mass/Vol] 123 mg/dL Invalid Interpretation Code AO Chemistry S Comment on above: Interpretive Data: E stimated average glucose (eAG) is a calculated value from Hemoglobin A1C and is entry level sales representative of the average blood glucose level in the last 2-3 month period. Normal range: less than 114 mg/dL HbA1c (Bld) [Mass fraction] 5.9 % Normal 4.3 - 6.4 % AO ADM SS Potassium [Moles/Vol] 4.0 mmol/L Normal 3.5 - 5.1 mmol/L AO ADM SS Protein [Mass/Vol] 6.9 G/dL Normal 6.4 - 8.2 G/dL AO ADM SS Sodium [Moles/Vol] 143 mmol/L Normal 136 - 145 mmol/L AO ADM SS Urea nitrogen [Mass/Vol] 11 mg/dL Normal 7 - 18 mg/dL AO ADM SS Urea nitrogen/Creatinine [Mass ratio] 10 ratio Normal 7 - 27 ratio AO ADM SS LABORATORYOrdered By: Hazel Salas on 06-17-2024 Cholesterol [Mass/Vol] 132 mg/dL Normal 0 - 200 mg/dL AO ADM SS Comment on above: Interpretive Data: C holesterol Reference Interval: Less than 200 Desirable 200-239 Borderline high risk 240 and above High risk Cholesterol in HDL [Mass/Vol] 51 mg/dL Normal 40 - 60 mg/dL AO ADM SS Cholesterol in LDL [Mass/Vol] 64 mg/dL Normal 0 - 130 mg/dL AO ADM SS Triglyceride [Mass/Vol] 84 mg/dL Normal 0 - 150 mg/dL AO ADM SS Comment on above: Interpretive Data: T riglyceride Reference Interval: Less than 150 Normal 150-199 Borderline high risk 200-499 High risk 500 or higher Very high risk LIPIDon 06-17-2024 Cholesterol [Mass/Vol] 132 mg/dL Normal 0-200 [facility] ([place]) Comment on above: Result Comment: Chol esterol Reference Interval: Less than 200 Desirable 200-239 Borderline high risk 240 and above High risk Performed By: #### G FR, CMP, A1C, LIPID #### [address] [address] #### B12 #### [facility] [address] [place] [id number] Cholesterol in HDL [Mass/Vol] 51 mg/dL Normal 40-60 [facility] ([place]) Comment on above: Performed By: #### G FR, CMP, A1C, LIPID #### [address] [address] #### B12 #### [address] [address] Cholesterol in LDL [Mass/Vol] 64 mg/dL Normal 0-130 [facility] ([place]) Comment on above: Performed By: #### G FR, CMP, A1C, LIPID #### [address] [address] #### B12 #### [address] [address] Triglyceride [Mass/Vol] 84 mg/dL Normal 0-150 [facility] ([place]) Comment on above: Result Comment: Trig lyceride Reference Interval: Less than 150 Normal 150-199 Borderline high risk 200-499 High risk 500 or higher Very high risk Performed By: #### G FR, CMP, A1C, LIPID #### [address] [address] #### B12 #### [address] [address] MRI BRAIN W/ + W/O CONTRASTo n 04-28-2024 MRI BRAIN W/ + W/O CONTRAST ORIGINAL EXAMINATION: MRI OF THE BRAIN and IAC's WITHOUT AND WITH CONTRAST 04/25/2024 9:25 am TECHNIQUE: Multiplanar multisequence MRI of the head/brain and IAC's was performed without and with the administration of intravenous contrast. COMPARISON: 03/18/2024 HISTORY: ORDERING SYSTEM PROVIDED HISTORY: Reason for Exam: transient neurological symptoms, abnormal MRI Brain recommending IAC'S FINDINGS: INTRACRANIAL STRUCTURES/VENTRICL ES: There is no acute infarct. No mass effect or midline shift. No evidence of an acute intracranial hemorrhage. The ventricles and sulci are normal in size and configuration. The sellar/suprasellar regions appear unremarkable. No abnormal focus of enhancement is seen within the brain parenchyma. IAC's: There is preserved fluid signal in the inner ear structures bilaterally. 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 The lesion measures approximately 8 mm in length on image 12 series 12 and 2 mm in thickness. ORBITS: The visualized portion of the orbits demonstrate no acute abnormality. SINUSES: Mucous retention cysts seen in the left maxillary sinus. BONES/SOFT TISSUES: The bone marrow signal intensity appears normal. The soft tissues demonstrate no acute abnormality. IMPRESSION: 1. No acute intracranial abnormality. 2. 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 Interpreted by: Ela Montano MD Preliminary Report By: Ela Montano MD Electronically signed By Ela Montano MD Dictated Date: 04/28/2024 7:30:33 AM Prelim Date: 04/28/2024 7:47:25 AM Sign Date: 04/28/2024 7:47:25 AM Ordering Provider: DEYVI MOREL [facility] ([place]) MRI BRAIN W/ + W/O CONTRASTo n 03-20-2024 MRI BRAIN W/ + W/O CONTRAST ORIGINAL EXAMINATION: MRI OF THE BRAIN WITHOUT AND WITH CONTRAST 03/18/2024 8:56 am TECHNIQUE: Multiplanar multisequence MRI of the head/brain was performed without and with the administration of intravenous contrast. COMPARISON: None. HISTORY: ORDERING SYSTEM PROVIDED HISTORY: Reason for Exam: Unspecified symptoms and signs involving the nervous system Transient neurological symptoms. TIA. Transient right-sided numbness and weakness. Migraines. FINDINGS: INTRACRANIAL STRUCTURES/VENTRICL ES: There is no acute infarct. No mass effect or midline shift. No evidence of an acute intracranial hemorrhage. The ventricles are mildly enlarged with commensurate enlargement of the sulci most consistent with mild age-related volume loss. The sellar/suprasellar regions appear unremarkable. The normal signal voids within the major intracranial vessels appear maintained. No abnormal focus of enhancement is seen within the brain parenchyma. There is a tiny focus of enhancement in the distal right ICA measuring approximately 2-3 mm. This could represent a vestibular schwannoma but this is not a dedicated IAC protocol. ORBITS: The visualized portion of the orbits demonstrate no acute abnormality. SINUSES: Mucous retention cysts are shown in the left maxillary sinus. A mucous retention cyst is shown in the right sphenoid sinus. Mastoid air cells are predominantly clear. BONES/SOFT TISSUES: The bone marrow signal intensity appears normal. Chronic flattening of the right posterior skull. The soft tissues demonstrate no acute abnormality. IMPRESSION: 1. No acute intracranial abnormality. 2. Tiny focus of enhancement in the distal right ICA may represent a vestibular schwannoma but this is not a dedicated IAC protocol. RECOMMENDATIONS: Dedicated MRI without and with IV contrast utilizing IAC protocol. Interpreted by: Ela Montano MD Preliminary Report By: Ela Montano MD Electronically signed By Ela Montano MD Dictated Date: 03/20/2024 9:05:43 AM Prelim Date: 03/20/2024 9:14:17 AM Sign Date: 03/20/2024 9:14:17 AM Ordering Provider: DEYVI Rodrigez [facility] [place] [facility] Factor II, DNA Analysis Note Normal [facility]) Comment on above: Result Comment: TEST S RESULT FLAG UNITS REF RANGE LAB Factor II DNA Note 01 Result: c.*97G>A - Not Detected This result is not associated with an increased risk for venous thromboembolism. See Additional Clinical Information and Comments. Additional Inform... 01 Additional Clinical Information: Venous thromboembolism is a multifactorial disease influenced by genetic, environmental, and circumstantial risk factors. The c.*97G>A variant in the F2 gene is a genetic risk factor for venous thromboembolism. Heterozygous carriers have a 2- to 4-fold increased risk for venous thromboembolism. Homozygotes for the c.*97G>A variant are rare. The annual risk of VTE in homozygotes has been reported to be 1.1%/year. Individuals who carry both a c.*97G>A variant in the F2 gene and a c.1601G>A (p. [id number]) variant in the F5 gene (commonly referred to as Factor V Leiden) have an approximately 20- fold increased risk for venous thromboembolism. Risks are likely to be even higher in more complex genotype combinations involving the F2 c.*97G>A variant and Factor V Leiden (PMID: 31796858). Additional risk factors include but are not limited to: deficiency of protein C, protein S, or antithrombin III, age, male sex, personal or family history of deep vein thromboembolism, smoking, surgery, prolonged immobilization, malignant neoplasm, tamoxifen treatment, raloxifene treatment, oral contraceptive use, hormone replacement therapy, and . Management of thrombotic risk and thrombotic events should follow established guidelines and fit the clinical circumstance. This result cannot predict the occurrence or recurrence of a thrombotic event. Comments: Genetic counseling is recommended to discuss the potential clinical implications of positive results, as well as recommendations for testing family members. Genetic Coordinators are available for health care providers to discuss results at [phone] ([phone] Test Details: Variant analyzed: c.*97G>A, previously referred to as [id number] Methods/Limitations: DNA analysis of the F2 gene (NM_000506.5) was performed by PCR amplification followed by restriction enzyme analysis. The diagnostic sensitivity is >99%. Results must be combined with clinical information for the most accurate interpretation. Molecular-based testing is highly accurate, but as in any laboratory test, diagnostic errors may occur. False positive or false negative results may occur for reasons that include genetic variants, blood transfusions, bone marrow transplantation, somatic or tissue-specific mosaicism, mislabeled samples, or erroneous representation of family relationships. This test was developed and its performance characteristics determined by [employer]. It has not been cleared or approved by the Food and Drug Administration. References: Tammy S, Mary AK, Brendon R, Christian WW, Hemant LY; ACMG Professional Practice and Guidelines Committee. Addendum: [employer] consensus statement on factor V Leiden mutation testing. Tamara Med. 2020Jan 14. doi: 10.1038/e37497-611-26632-j. PMID: 64811213. Robb LAI. Prothrombin Thrombophilia. 2005Jun 05 [Updated 2020Dec 16]. In: John MP, Aishwarya HH, Tammy RA, et al., editors. Julia(Zohaib) [Internet]. [place] ([place]): [facility]; 8854-1356. Available from: https://www.ncbi.nlm.nih.gov/books/WZA8463/ Mcclellan S, Mary AK, Fletcher X, Danie B, Cristopher EB, Breann P, Miguel Angel CS; [employer] Laboratory Wafer Line Worker Committee. Venous thromboembolism laboratory testing (factor V Leiden and factor II c.*97G>A), 2018 update: a technical standard of the [employer] [employer] and [employer] (ACMG). Tamara Med. 2017;20(12):5145-4331. doi: 10.1038/h44538-570-0326-y. Epub 2017Aug 16. PMID: 84219090. Reviewed By: Note 01 Technical Component performed at [facility] [place] Professional Component performed by: Carol Tilley, Ph.D., [facility] Director, Molecular Genetics [address] [place] [address] [place] [address] FLAG LEGEND: L-Low Normal,H-High Normal,LL-Alert Low,HH-Alert High <-Panic Low,>-Panic High,A-Abnormal,AA-Critical Abnormal Performed at: 01 [facility] [place] [address] [facility], [place] [address] Shanell Wang [facility], Performed At: TG [facility] [address] [facility], [place] [id number] Kathleen Reece [facility] Ph:[phone] Performed By: #### G FR, CMP, A1C, LIPID #### Susan [address] [address] #### B12 #### [address] [address] APCVon 03-05-2024 APC Factor V Resistance 2.7 ratio Normal [facility] ([place]) Comment on above: Result Comment: This APCV result demonstrates no Resistance to Activated Protein C. APC Factor V Resistance Reference Range: <= 2.3 Positive > 2.3 Negative Performed By: #### G FR, CMP, A1C, LIPID #### [place] [address] #### B12 #### [place] [address] AT3on 03-05-2024 Anti-Thrombin III 94 % Normal 84-126 [facility] ([place]) Comment on above: Performed By: #### 1 [address]85, [id number], [id number], [id number] ####[address] [address] CARDAon 03-05-2024 Cardiolipin IgA <9 Normal 0-11 [facility] ([place]) Comment on above: Result Comment: Nega tive: <12 Indeterminate: 12 - 20 Low-Med Positive: >20 - 80 High Positive: >80 Performed At: [facility] [address] [place], [place] [id number] Ynes Hays PhD Ph:[phone] Performed By: #### G FR, CMP, A1C, LIPID #### [place] [address] #### B12 #### [place] [address] CARDIGon 03-05-2024 Cardiolipin IgG <9 Normal 0-14 [facility] ([place] Comment on above: Result Comment: Nega tive: <15 Indeterminate: 15 - 20 Low-Med Positive: >20 - 80 High Positive: >80 Performed At: [facility] [address] [place], [place] [id number] Ynes Hays PhD Ph:[phone] Performed By: #### G FR, CMP, A1C, LIPID #### [address] [address] #### B12 #### [place] [address] CARDIMon 03-05-2024 Cardiolipin IgM <9 Normal 0-12 [facility] ([place]) Comment on above: Result Comment: Nega tive: <13 Indeterminate: 13 - 20 Low-Med Positive: >20 - 80 High Positive: >80 Performed At: [facility] [address] [place], [place] [id number] Ynes Hays PhD Ph:[phone] Performed By: #### G FR, CMP, A1C, LIPID #### [place] [address] #### B12 #### [place] [address] PROTCon 03-05-2024 Protein C 119 % Normal >=80 [facility] ([place]) Comment on above: Performed By: #### 1 [address], 108336, [id number], 153203 ####[place] [address] [place], [place] [address] PRSFAon 03-05-2024 Protein S Free Antigen 96 % Normal 74-146 [facility] ([place]) Comment on above: Result Comment: Prot ein S Type II deficiency (very rare) is not detected by this assay. (Pathophysiology of Haemostasis and Thrombosis 2003/04: 33:202-205 and Thrombosis Haemostasis 2000; 84:918) Performed By: #### G FR, CMP, A1C, LIPID #### [address] [address] #### B12 #### [place] [address] LABORATORYOrdered By: Anahi cabrera on 02-21-2024 Appearance (U) Clear (02/21/24 3:56 PM) Normal Clear AO Auto Urine SS Bilirubin Ql (U) Negative (02/21/24 3:56 PM) Normal Negative AO Auto Urine SS Color (U) Yellow (02/21/24 3:56 PM) Normal AO Auto Urine SS Glucose Test strip (U) [Mass/Vol] Negative Normal Negative AO Auto Urine SS Hemoglobin Auto test strip (U) [Mass/Vol] Trace *ABN* (02/21/24 3:56 PM) Invalid Interpretation Code Negative AO Auto Urine SS Ketones Ql (U) Negative Normal Negative AO Auto Ur ine SS UA Leuk Est Negative (02/21/24 3:56 PM) Normal Negative AO Auto Urine SS UA Nitrite Negative (02/21/24 3:56 PM) Normal Negative AO Auto Urine SS UA pH 7.0 (02/21/24 3:56 PM) Normal 5.0 - 8.0 AO Auto Urine SS UA Protein Negative Normal Negative AO Auto Urine SS UA Spec Grav 1.025 (02/21/24 3:56 PM) Normal 1.015-1.025 AO Auto Urine SS UA Specimen Type Clean Catch (02/21/24 3:56 PM) Normal AO Auto Urine SS UA Urobilinogen 0.2 E.U./dL Normal 0.2-1.0 AO Auto Urine SS UAon 02-21-2024 Color (U) Yellow Normal [facility] ([place]) Comment on above: Performed By: #### G FR, CMP, A1C, LIPID #### [place] [address] #### B12 #### [address] [address] Glucose (U) [Mass/Vol] Negative Normal Negative [facility] ([place]) Comment on above: Performed By: #### G FR, CMP, A1C, LIPID #### [place] [id number] #### B12 #### [address] [address] Ketones Ql (U) Negative Normal Negative [facility] ([place]) Comment on above: Performed By: #### G FR, CMP, A1C, LIPID #### [place] [address] #### B12 #### [address] [address] UA Appear Clear Normal Clear [facility] ([place]) Comment on above: Performed By: #### G FR, CMP, A1C, LIPID #### [address] [address] #### B12 #### [address] [address] UA Blood Trace Abnormal Negative [facility] ([place]) Comment on above: Performed By: #### G FR, CMP, A1C, LIPID #### [address] [address] #### B12 #### [address] [address] UA Leuk Est Negative Normal Negative [facility] ([place]) Comment on above: Performed By: #### G FR, CMP, A1C, LIPID #### [address] [address] #### B12 #### [address] [address] UA Nitrite Negative Normal Negative [facility] ([place]) Comment on above: Performed By: #### G FR, CMP, A1C, LIPID #### [address] [address] #### B12 #### [address] [address] UA pH 7.0 Normal 5.0 - 8.0 [facility] ([place]) Comment on above: Performed By: #### G FR, CMP, A1C, LIPID #### [address] [address] #### B12 #### [address] [address] UA Protein Negative Normal Negative [facility] ([place] Comment on above: Performed By: #### G FR, CMP, A1C, LIPID #### [address] [address] #### B12 #### [address] [address] UA Spec Grav 1.025 Normal 1.015-1.025 [facility] ([place] Comment on above: Performed By: #### G FR, CMP, A1C, LIPID #### [address] [address] #### B12 #### [address] [address] UA Specimen Type Clean Catch Normal [facility] ([place]) Comment on above: Performed By: #### G FR, CMP, A1C, LIPID #### [place] [address] #### B12 #### [place] [address] UA Urobilinogen 0.2 E.U./dL Normal 0.2-1.0 [facility] ([place] Comment on above: Performed By: #### G FR, CMP, A1C, LIPID #### [place] [address] #### B12 #### [place] [address] Urobilinogen (U) [Mass/Vol] Negative Normal Negative [facility] ([place]) Comment on above: Performed By: #### G FR, CMP, A1C, LIPID #### [place] [address] #### B12 #### [place] [address] 12 Lead EKGon 02-09-2024 12 Lead EKG [facility] [address] [place] [address] 12 Lead EKG 02/09/24 1128 MR#: [id number] Acct: [id number] Name: SUNDAYLACY Rep #: [id number] : 1970 53 From: Mary Rondon MD Attending Dr: Status: DEP ER Ordering Dr: Porfirio Holley MD Date: 02/09/24 Location: ED Sex: M C Admitted: Test Reason : Blood Pressure : / mmHG Vent. Rate : 079 BPM Atrial Rate : 079 BPM P-R Int : 152 ms QRS Dur : 082 ms QT Int : 372 ms P-R-T Axes : 030 -09 033 degrees QTc Int : 426 ms Normal sinus rhythm Normal ECG Confirmed by Mary Rondon ([id number]), film and video editor AVILA PINO ([id number]) on 02/11/2024 11:08:49 AM Referred By: Confirmed By:Mary Rondon 02/11/24 1108 Date Mary Rondon MD CC: Dr. Porfirio Holley MD; Dr. Bala Wang DO Signed Normal [facility] Absolute lymphocyte countOrd ered By: Porfirio Holley on 02-09-2024 Lymphocytes Auto (Unsp spec) [#/Vol] 1.36 10*3/uL 0.83-4.51 [facility] Activated partial thrombopla stin time (aPTT) in platelet poor plasma by coagulation aOrdered By: Porfirio Holley on 02-09-2024 aPTT Coag (PPP) [Time] 24.2 s 24.1-36.2 [facility] Automated lymphocyte count a s percentage of total leukocytesOrdered By: Porfirio Holley on 02-09-2024 Lymphocytes/100 WBC Auto (Unsp spec) 17.9 % 19-41 [facility] Basic Metabolic Profile (BMP )on 02-09-2024 BUN/CRE 11.1 RATIO Normal 10-20 [facility] Comment on above: Order Comment: 'TROP ' Serial specimen #1, #2 or #3: 1 1 Performed By: #### L 500.2500, L501.4020, L300.4310, L300.3900, L100.0100 #### [facility] [address] [place], [place], [id number] CA,Total 9.3 mg/dL Normal 8.5-10.1 [facility] Comment on above: Order Comment: 'TROP ' Serial specimen #1, #2 or #3: 1 1 Performed By: #### L 500.2500, L501.4020, L300.4310, L300.3900, L100.0100 #### [facility] [address] [place], [address] Chloride [Moles/Vol] 109 mmol/L High 98-107 [facility] Comment on above: Order Comment: 'TROP ' Serial specimen #1, #2 or #3: 1 1 Performed By: #### L 500.2500, L501.4020, L300.4310, L300.3900, L100.0100 #### [facility] [address] [place], [address] CO2 [Moles/Vol] 28.0 mmol/L Normal 21.0-32.0 [facility] Comment on above: Order Comment: 'TROP ' Serial specimen #1, #2 or #3: 1 1 Performed By: #### L 500.2500, L501.4020, L300.4310, L300.3900, L100.0100 #### [facility] [address] [place], [address] Creatinine [Mass/Vol] 0.99 mg/dL Normal 0.70-1.30 [facility] Comment on above: Order Comment: 'TROP ' Serial specimen #1, #2 or #3: 1 1 Result Comment: The validity of the calculated GFR GFRAA in patients over 70 years has not been determined. Clinical correlation is essential. Performed By: #### L 500.2500, L501.4020, L300.4310, L300.3900, L100.0100 #### [facility] [address] [place], [address] ECRCL 90.71 ml/min Normal [facility] Comment on above: Order Comment: 'TROP ' Serial specimen #1, #2 or #3: 1 1 Performed By: #### L 500.2500, L501.4020, L300.4310, L300.3900, L100.0100 #### [facility] [address] [place], [address] EST GFR - AA 101 mL/min Normal >60 [facility] Comment on above: Order Comment: 'TROP ' Serial specimen #1, #2 or #3: 1 1 Result Comment: Afri can [place]ian GFR Calc Performed By: #### L 500.2500, L501.4020, L300.4310, L300.3900, L100.0100 #### [facility] [address] [place], [address] GAP 2 Low 5-15 [facility] Comment on above: Order Comment: 'TROP ' Serial specimen #1, #2 or #3: 1 1 Performed By: #### L 500.2500, L501.4020, L300.4310, L300.3900, L100.0100 #### [facility] [address] [place], [address] GFR/1.73 sq M.predicted among non-blacks MDRD (S/P/Bld) [Vol rate/Area] 84 mL/min/{1.73_m2} Normal >60 [facility] Comment on above: Order Comment: 'TROP ' Serial specimen #1, #2 or #3: 1 1 Result Comment: Non- GFR Calc Performed By: #### L 500.2500, L501.4020, L300.4310, L300.3900, L100.0100 #### [facility] [address] [place], [address] Glucose [Mass/Vol] 101 mg/dL Normal 74-106 [facility] Comment on above: Order Comment: 'TROP ' Serial specimen #1, #2 or #3: 1 1 Result Comment: Fast ing Glucose result from 100 to 125 mg/dL suggests IMPAIRED HOMEOSTASIS per A.D.A. criteria. Performed By: #### L 500.2500, L501.4020, L300.4310, L300.3900, L100.0100 #### [facility] [address] [place], [address] Potassium [Moles/Vol] 4.5 mmol/L Normal 3.5-5.1 [facility] Comment on above: Order Comment: 'TROP ' Serial specimen #1, #2 or #3: 1 1 Result Comment: Mode rate Hemolysis, Result may be falsely increased. Performed By: #### L 500.2500, L501.4020, L300.4310, L300.3900, L100.0100 #### [facility] [address] [place], [address] Sodium [Moles/Vol] 139 mmol/L Normal 136-145 [facility] Comment on above: Order Comment: 'TROP ' Serial specimen #1, #2 or #3: 1 1 Performed By: #### L 500.2500, L501.4020, L300.4310, L300.3900, L100.0100 #### [facility] [address] [place], [address] Urea nitrogen [Mass/Vol] 11 mg/dL Normal 7-18 [facility] Comment on above: Order Comment: 'TROP ' Serial specimen #1, #2 or #3: 1 1 Performed By: #### L 500.2500, L501.4020, L300.4310, L300.3900, L100.0100 #### [facility] [address] [place], [address] Basophil percentageOrdered B y: Porfirio Holley on 02-09-2024 Basophils/100 WBC (Bld) 1.1 % 0-1 [facility] Eosinophils/100 WBC (Bld) 2.2 % 0-5 [facility] Hemoglobin (Bld) [Mass/Vol] 14.1 g/dL 13.0-16.5 [facility] Monocytes/100 WBC (Bld) 8.9 % 0-10 [facility] Neutrophils (Bld) [#/Vol] 5.3 10*3/uL 2.0-7.7 [facility] Neutrophils/100 WBC (Bld) 69.5 % 47-70 [facility] WBC (Bld) [#/Vol] 7.6 10*3/uL 4.4-11.0 [facility] Chloride [Moles/Vol] 109 mmol/L 98-107 [facility] Glucose [Mass/Vol] 101 mg/dL 74-106 [facility] Comment on above: Fasting Glucose resu lt from 100 to 125 mg/dL suggests IMPAIRED HOMEOSTASIS per A.D.A. criteria. Potassium [Moles/Vol] 4.5 mmol/L 3.5-5.1 [facility] Comment on above: Moderate Hemolysis, Result may be falsely increased. Sodium [Moles/Vol] 139 mmol/L 136-145 [facility] CBC W/Diff, Automatedon 01-12 Absolute Lymph 1.36 X10 3/uL Normal 0.83-4.51 [facility] Comment on above: Order Comment: REDRA W. PREVIOUS SPECIMEN REJECTED DUE TO CLOT . 02/09/24 1135 Yue Bartlett. Performed By: #### L 100.0100 #### [facility] [address] [place], [address] Absolute Neut 5.3 X10 3/uL Normal 2.0-7.7 [facility] Comment on above: Order Comment: REDRA W. PREVIOUS SPECIMEN REJECTED DUE TO CLOT . 02/09/24 1135 Yue Bartlett. Performed By: #### L 100.0100 #### [facility] [address] [place], [address] Basophils/100 WBC (Bld) 1.1 % High 0-1 [facility] Comment on above: Order Comment: REDRA W. PREVIOUS SPECIMEN REJECTED DUE TO CLOT . 02/09/24 1135 Yue Bartlett. Performed By: #### L 100.0100 #### [facility] [address] [place], [address] Eosinophils/100 WBC (Bld) 2.2 % Normal 0-5 [facility] Comment on above: Order Comment: REDRA W. PREVIOUS SPECIMEN REJECTED DUE TO CLOT . 02/09/24 1135 Yue Bartlett. Performed By: #### L 100.0100 #### [facility] [address] [place], [address] Erythrocyte distribution width (RBC) [Ratio] 13.2 % Normal 11.6-14.6 [facility] Comment on above: Order Comment: REDRA W. PREVIOUS SPECIMEN REJECTED DUE TO CLOT . 02/09/24 1135 Yeu Bartlett. Performed By: #### L 100.0100 #### [facility] [address] [place], [address] Hematocrit (Bld) [Volume fraction] 42.6 % Normal 40-54 [facility] Comment on above: Order Comment: REDRA W. PREVIOUS SPECIMEN REJECTED DUE TO CLOT . 02/09/24 1135 Yue Bartlett. Performed By: #### L 100.0100 #### [facility] [address] [place], [address] Hemoglobin (Bld) [Mass/Vol] 14.1 g/dL Normal 13.0-16.5 [facility] Comment on above: Order Comment: REDRA W. PREVIOUS SPECIMEN REJECTED DUE TO CLOT . 02/09/24 1135 Yue Bartlett. Performed By: #### L 100.0100 #### [facility] [address] [place], [address] IG% 0.400 Normal 0.0-0.9 [facility] Comment on above: Order Comment: REDRA W. PREVIOUS SPECIMEN REJECTED DUE TO CLOT . 02/09/24 1135 Yue Bartlett. Result Comment: IG% - Immature Granulocytes (promyelocytes, myelocytes and metamyelocytes) > 1% indicates that a LEFT SHIFT is Present. Performed By: #### L 100.0100 #### [facility] [address] [place], [address] Lymphocytes/100 WBC (Bld) 17.9 % Low 19-41 [facility] Comment on above: Order Comment: REDRA W. PREVIOUS SPECIMEN REJECTED DUE TO CLOT . 02/09/24 1135 Yue Bartlett. Performed By: #### L 100.0100 #### [facility] [address] [place], [address] MCH (RBC) [Entitic mass] 29.1 pg Normal 27.0-32.0 [facility] Comment on above: Order Comment: REDRA W. PREVIOUS SPECIMEN REJECTED DUE TO CLOT . 02/09/24 1135 Yuesven Bartlett. Performed By: #### L 100.0100 #### [facility] [address] [place], [address] MCHC (RBC) [Mass/Vol] 33.1 g/dL Normal 32-36 [facility] Comment on above: Order Comment: REDRA W. PREVIOUS SPECIMEN REJECTED DUE TO CLOT . 02/09/24 1135 Yue Bartlett. Performed By: #### L 100.0100 #### [facility] [address] [place], [address] MCV (RBC) [Entitic vol] 87.8 fL Normal 80-94 [facility] Comment on above: Order Comment: REDRA W. PREVIOUS SPECIMEN REJECTED DUE TO CLOT . 02/09/24 1135 Yue Bartlett. Performed By: #### L 100.0100 #### [facility] [address] [place], [address] Monocytes/100 WBC (Bld) 8.9 % Normal 0-10 [facility] Comment on above: Order Comment: REDRA W. PREVIOUS SPECIMEN REJECTED DUE TO CLOT . 02/09/24 1135 Yue Bartlett. Performed By: #### L 100.0100 #### [facility] [address] [place], [address] Neutrophils/100 WBC (Bld) 69.5 % Normal 47-70 [facility] Comment on above: Order Comment: REDRA W. PREVIOUS SPECIMEN REJECTED DUE TO CLOT . 02/09/24 1135 Yue Bartlett. Performed By: #### L 100.0100 #### [facility] [address] [place], [address] Nucleated RBC (Bld) [#/Vol] 0 10*3/uL Normal 0-5 [facility] Comment on above: Order Comment: REDRA W. PREVIOUS SPECIMEN REJECTED DUE TO CLOT . 02/09/24 1135 Yue Dhruv. Performed By: #### L 100.0100 #### [facility] [address] [place], [address] Platelet mean volume (Bld) [Entitic vol] 9.7 fL Normal 6.2-12.0 [facility] Comment on above: Order Comment: REDRA W. PREVIOUS SPECIMEN REJECTED DUE TO CLOT . 02/09/24 1135 Yue Dhruv. Performed By: #### L 100.0100 #### [facility] [address] [place], [address] Platelets (Bld) [#/Vol] 266 10*3/uL Normal 150-450 [facility] Comment on above: Order Comment: REDRA W. PREVIOUS SPECIMEN REJECTED DUE TO CLOT . 02/09/24 1135 Yue Dhruv. Performed By: #### L 100.0100 #### [facility] [address] [place], [address] RBC (Bld) [#/Vol] 4.85 10*6/uL Normal 4.6-6.2 [facility] Comment on above: Order Comment: REDRA W. PREVIOUS SPECIMEN REJECTED DUE TO CLOT . 02/09/24 1135 Yue Dhruv. Performed By: #### L 100.0100 #### [facility] [address] [place], [address] RDW SD 42.5 fl Normal 35.1-43.9 [facility] Comment on above: Order Comment: REDRA W. PREVIOUS SPECIMEN REJECTED DUE TO CLOT . 02/09/24 1135 Yue Dhruv. Performed By: #### L 100.0100 #### [facility] [address] [place], [address] WBC (Bld) [#/Vol] 7.6 10*3/uL Normal 4.4-11.0 [facility] Comment on above: Order Comment: RED W. PREVIOUS SPECIMEN REJECTED DUE TO CLOT . 02/09/24 1135 Yue Bartlett. Performed By: #### L 100.0100 #### [facility] [address] [place], [address] Absolute Neut Normal 2.0-7.7 [facility] Comment on above: Result Comment: This specimen has been REJECTED due to Laboratory criteria: Clotted. TAYO has been notified of need of recollection. 02/09/24 1133 Yue Dhruv Performed By: #### L 500.2500, L501.4020, L300.4310, L300.3900, L100.0100 #### [facility] [address] [place], [address] HCT Normal 40-54 [facility] Comment on above: Result Comment: This specimen has been REJECTED due to Laboratory criteria: Clotted. TAYO has been notified of need of recollection. 02/09/24 1133 Yuehector Bartlett Performed By: #### L 500.2500, L501.4020, L300.4310, L300.3900, L100.0100 #### [facility] [address] [place], [address] HGB Normal 13.0-16.5 [facility] Comment on above: Result Comment: This specimen has been REJECTED due to Laboratory criteria: Clotted. TAYO has been notified of need of recollection. 02/09/24 1133 Yue Bartlett Performed By: #### L 500.2500, L501.4020, L300.4310, L300.3900, L100.0100 #### [facility] [address] [place], [address] MCH Normal 27.0-32.0 [facility] Comment on above: Result Comment: This specimen has been REJECTED due to Laboratory criteria: Clotted. TAYO has been notified of need of recollection. 02/09/24 1133 Yue Bartlett Performed By: #### L 500.2500, L501.4020, L300.4310, L300.3900, L100.0100 #### [facility] [address] [place], [address] MCHC Normal 32-36 [facility] Comment on above: Result Comment: This specimen has been REJECTED due to Laboratory criteria: Clotted. TAYO has been notified of need of recollection. 02/09/24 1133 Yue Bartlett Performed By: #### L 500.2500, L501.4020, L300.4310, L300.3900, L100.0100 #### [facility] [address] [place], [address] MCV Normal 80-94 [facility] Comment on above: Result Comment: This specimen has been REJECTED due to Laboratory criteria: Clotted. TAYO has been notified of need of recollection. 02/09/24 1133 Yue Bartlett Performed By: #### L 500.2500, L501.4020, L300.4310, L300.3900, L100.0100 #### [facility] [address] [place], [address] NEUT% Normal 47-70 [facility] Comment on above: Result Comment: This specimen has been REJECTED due to Laboratory criteria: Clotted. TAYO has been notified of need of recollection. 02/09/24 1133 Yue Bartlett Performed By: #### L 500.2500, L501.4020, L300.4310, L300.3900, L100.0100 #### [facility] [address] [place], [address] PLT Normal 150-450 [facility] Comment on above: Result Comment: This specimen has been REJECTED due to Laboratory criteria: Clotted. TAYO has been notified of need of recollection. 02/09/24 1133 Yue Bartlett Performed By: #### L 500.2500, L501.4020, L300.4310, L300.3900, L100.0100 #### [facility] [address] [place], [address] RBC Normal 4.6-6.2 [facility] Comment on above: Result Comment: This specimen has been REJECTED due to Laboratory criteria: Clotted. TAYO has been notified of need of recollection. 02/09/24 1133 Yue Bartlett Performed By: #### L 500.2500, L501.4020, L300.4310, L300.3900, L100.0100 #### [facility] [address], [address] RDW CV Normal 11.6-14.6 [facility] Comment on above: Result Comment: This specimen has been REJECTED due to Laboratory criteria: Clotted. TAYO has been notified of need of recollection. 02/09/24 1133 Yue Bartlett Performed By: #### L 500.2500, L501.4020, L300.4310, L300.3900, L100.0100 #### [facility] [address] [place], [address] RDW SD Normal 35.1-43.9 [facility] Comment on above: Result Comment: This specimen has been REJECTED due to Laboratory criteria: Clotted. TAYO has been notified of need of recollection. 02/09/24 1133 Yue Bartlett Performed By: #### L 500.2500, L501.4020, L300.4310, L300.3900, L100.0100 #### [facility] [address] [place], [address] WBC Normal 4.4-11.0 [facility] Comment on above: Result Comment: This specimen has been REJECTED due to Laboratory criteria: Clotted. TAYO has been notified of need of recollection. 02/09/24 1133 Yue Bartlett Performed By: #### L 500.2500, L501.4020, L300.4310, L300.3900, L100.0100 #### [facility] [address] [place], [address] CTA Head AND Neck W/ Contras ton 02-09-2024 CTA Head AND Neck W/ Contrast [facility] [address] [place] [address] CTA Head AND Neck W/ Contrast MR#: [id number] Acct: [id number] Name: SUNDAYLACY Rep #: [id number] : 1970 M 53 From: Kaden brown MD PCP: Dr. Bala Wang, DO Status: [facility] Study: CTA Head AND Neck W/ Contrast Date of Exam: Exam# [id number] Ordering Dr: Porfirio Holley MD ADDENDUM by Dr. Kaden Kingston MD on 02/09/24 at 1251 -[id number] STUDY: STROKE PROTOCOL CT BRAIN WITHOUT CONTRAST REASON FOR EXAM: Male, 53 years old. Neuro deficit, acute, stroke suspected RECENT HERNIA SURGERY LAST SUNDAY, THIS AM HAD NUMBNESS AND TINGLING ON RT SIDE THAT LASTED 1 MINUTE, SYMPTOMS RESOLVED RADIATION DOSAGE (If Supplied By Facility): CTDIvol = ( 29.02 ) mGy, DLP = ( 1452.79 ) mGycm TECHNIQUE: Transaxial CT imaging of the brain was performed without administration of intravenous contrast material. Individualized dose optimization techniques were used for this CT. COMPARISON: None. FINDINGS: Normal soft tissue structures. Normal calvarium. Normal size ventricles and extra-axial spaces for the patient''s age. Normal white matter tracts of the cerebral hemispheres. Normal basal ganglia and thalami. Normal brainstem. Normal cerebellum. There is no demonstrated asymmetric dense artery sign or sulcal effacement or parenchymal edema. There is no intracranial hemorrhage. There are no findings of an acute ischemic infarction. Normal visualized paranasal sinuses. ASPECTS Score for Acute Strokes: 10 IMPRESSION: 1. Normal unenhanced CT scan of the brain. 2. Concern for stroke/positive symptomatology should be further evaluated with CT brain perfusion/CTA or MRI of the brain for further assessment. STUDY: CTA HEAD AND NECK WITH CONTRAST REASON FOR EXAM: Male, 53 years old. Neuro deficit, acute, stroke suspected RADIATION DOSAGE (If Supplied By Facility): CTDIvol = ( 29.02 ) mGy, DLP = ( 1452.79 ) mGycm TECHNIQUE: CT angiography was performed with a multi-detector CT scanner. Data acquisition was obtained from the skull base through the vertex following intravenous administration of IV 100mL Isovue-370. MIP images were reconstructed from the axial data set. Post-processing of the angiographic images was performed, with multiplanar reformation and 3D reconstruction. Individualized dose optimization techniques were used for this CT. COMPARISON: No relevant priors. FINDINGS: Normal bilateral petrous carotid arteries. Normal right cavernous carotid artery with a normal supraclinoid bifurcation. Normal left cavernous carotid artery with a normal supraclinoid bifurcation. Normal right A1 segments of the anterior cerebral artery. Normal left A1 segments of the anterior cerebral artery. Normal intact anterior communicating artery (ACOM). Normal bilateral A2 segments of the anterior cerebral arteries. Normal right M1 and M2 segments of the middle cerebral arteries, with a normal M1 bifurcation. Normal left M1 and M2 segments of the middle cerebral arteries, with a normal M1 bifurcation. Normal right posterior communicating artery (PCOM). Normal left posterior communicating artery (PCOM). There is a small atretic right vertebral artery with a dominant left vertebral artery. Normal basilar artery with a normal basilar bifurcation. The visualized bilateral superior cerebellar (SCA) arteries are normal. Normal bilateral P1, P2 and visualized P3 segments of the posterior cerebral arteries. There is no demonstrated aneurysm of the chitina of [place]. There is no demonstrated abnormality of the visualized brain. AORTIC ARCH: Normal visualized aortic arch. Normal origins of the brachiocephalic, left common carotid, and left subclavian arteries. RIGHT CAROTID ARTERIES: Normal right common carotid artery (CCA). Normal right common carotid bulb. Normal origin of the right internal carotid (ICA) artery without a hemodynamically significant stenosis. Normal visualized cervical portion of the right internal carotid artery. Normal origin of the right external carotid artery (ECA). LEFT CAROTID ARTERIES: Normal left common carotid artery (CCA). Normal left common carotid bulb. Normal origin of the left internal carotid (ICA) artery without a hemodynamically significant stenosis. Normal visualized cervical portion of the left internal carotid artery. Normal origin of the left external carotid artery (ECA). VERTEBRAL ARTERIES: Normal bilateral vertebral arteries. 02/09/24 1251 Date cc: Dr. Porfirio Holley MD; Dr. Bala Wang, * Signed ADDENDUM by Dr. Potts (more content not included)... Normal [facility] Chest PA and Lateralon 02-08 Chest PA and Lateral [facility] [address] [place] [address] Chest PA and Lateral MR#: [id number] Acct: [id number] Name: SUNDAYLACY Rep #: [id number] : 1970 M 53 From: Kaden brown MD PCP: Dr. Bala Wang, DO Status: REG ER Study: Chest PA and Lateral Date of Exam: 02/09/24 Exam# [id number] Ordering Dr: Porfirio Holley MD -[id number] STUDY: X-RAY CHEST REASON FOR EXAM: Male, 53 years old. mediastinal eval - stroke sx TECHNIQUE: PA and lateral views of the chest. COMPARISON: None. FINDINGS: Linear atelectasis is present in the bilateral lower lobes. No visualized consolidation or pulmonary edema or pleural effusion. There is no demonstrated pleural abnormality. Normal size heart. Normal mediastinum and maribel. Normal visualized pulmonary arteries. There is atherosclerotic calcification of the aortic arch with tortuosity. There are diffuse degenerative changes of the visualized thoracic spine. Normal visualized ribs, clavicles, and shoulders. There is no demonstrated abnormality of the visualized soft tissue structures of the upper abdomen. RAD/Chest PA and Lateral IMPRESSION: 1. Linear atelectasis is present in the bilateral lower lobes. No visualized consolidation or pulmonary edema or pleural effusion. Electronically Signed: Kaden Kingston MD at 13:38 EDT , CC: Dr. Porfirio Holley MD; Dr. Bala Wang DO Integrity Engineer: Signed Normal [facility] Determination of erythrocyte mean corpuscular volume (MCV)Ordered By: Porfirio Holley on 02-09-2024 MCV (RBC) [Entitic vol] 87.8 fL 80-94 [facility] Emergency Department Summary on 02-09-2024 Emergency Department Summary [facility] Medical Records Department [address] [place] [address] Emergency Department Summary 02/09/24 MR#: [id number] Acct: [id number] Name: SUNDAYLACY Rep #: [id number] : 1970 53 From: Porfirio Holley MD PCP: Dr. Bala Wang DO Status:REG ER Location: ED HPI History of Present Illness Chief Complaint: Neuro S/Sx Informant: patient and spouse/S.O. Narrative Narrative: Patient presents about 1 hour after sudden onset while he was awake this morning of numbness in his right upper extremity and right lower face, facial droop as confirmed by his , and slurred speech. He states that maybe lasted a minute before it all went away together. He does not remember feeling any weakness but he states he did not really try to do anything with his hand before at all resolved. Never had this before. He did not experience a headache or syncope or any other systemic symptoms. He had a right inguinal herniorrhaphy at [facility] 2 days ago. He has been sleeping in a recliner, but otherwise recovering okay without any discharge from underneath of his operative dressings. He is passing flatus no bowel movement yet. Urinating well. states that he had been straight catheterized while there, and subsequently he urinated a small amount of blood with some clots, he is now urinating without hematuria but he states there are some residual small clots that he seems to be urinating out occasionally. [facility] Medical History (Updated 02/09/24 @ 13:[address] Porfirio Holley MD) GERD (gastroesophageal reflux disease) Hyperlipidemia Home Medications ascorbic acid (vitamin C) 250 mg tablet (Vitamin C) 250 mg PO DAILY 02/09/24 [History Last Taken 01/31/24] cholecalciferol (vitamin D3) 50 mcg (2,000 unit) capsule (D3-2000) 2,000 unit PO DAILY 02/09/24 [History Last Taken 01/31/24] clopidogrel 75 mg tablet 75 mg PO DAILY 3 weeks #21 tabs 02/09/24 [Rx Last Taken Unknown] ezetimibe 10 mg tablet 10 mg PO DAILY 02/09/24 [History Last Taken 01/31/24] fluticasone 250 mcg-salmeterol 50 mcg/dose blistr powdr for inhalation (Wixela Inhub) 1 inh inhalation DAILY 02/09/24 [History Last Taken 02/09/24] hydrocodone-acetami nophen 5-325mg 5mg-325mg 1 tab PO Q6H PRN pain 02/09/24 [History Last Taken 02/08/24] omeprazole 20 mg capsule,delayed release 20 mg PO DAILY 02/09/24 [History Last Taken 02/08/24] rosuvastatin 10 mg tablet 20 mg (2 x 10 mg) PO DAILY #60 tabs 02/09/24 [Rx Last Taken Unknown] tamsulosin 0.4 mg capsule 0.8 mg PO DAILY 02/09/24 [History Last Taken 02/08/24] Allergy/AdvReac Type Severity Reaction Status Date / Time No Known Allergies Allergy Verified 02/09/24 10:25 Family History no significant family his Surgical History (Updated 02/09/24 @ 11:[address] Porfirio Holley MD) S/P hernia surgery S/P inguinal herniorrhaphy Social History Smoking Status: Never smoker ROS ROS ED Constitutional Constitutional ED: Denies chills or fever(s) Eyes Eyes: Denies change in vision or diplopia ENT ENT ED: Denies rhinorrhea or sore throat Cardiovascular Cardiovascular: Denies chest pain or palpitations Respiratory/Chest Respiratory/Chest: Denies cough or dyspnea Gastrointestinal Gastrointestinal: Denies abdominal pain, diarrhea, nausea or vomiting Genitourinary Genitourinary ED: Denies dysuria or hematuria Musculoskeletal Musculoskeletal: Denies back pain or neck pain Integumentary Denies abscess or rash Neurologic Neurologic: Reports abnormal speech, paresthesias and weakness; Denies headache(s) Psychiatric Psychiatric: Denies anxiety or suicidal thoughts EXAM Physical Exam Const Vital Signs: 02/09/24 10:24 02/09/24 10:57 02/09/24 11:05 Temperature 96.9 F L Temperature Source Temporal Pulse Rate 86 82 Respiratory Rate 16 16 Blood Pressure 164/107 H 147/93 H Blood Pressure Mean 126 111 Pulse Ox 97 98 Oxygen Delivery Method Room Air Room Air Room Air 02/09/24 11:05 02/09/24 10:51 02/09/24 10:55 Temperature Temperature Source Pulse Rate 88 81 82 Respiratory Rate 18 16 18 Blood Pressure 149/96 H 147/93 H Blood Pressure Mean 113 109 Pulse Ox 98 97 97 Oxygen Delivery Method Room Air 02/09/24 11:00 02/09/24 11:05 02/09/24 11:10 Temperature Temperature Source Pulse Rate 85 78 81 Respiratory Rate 17 16 16 Blood Pressure 142/96 H 140/100 H 140/95 H Blood Pressure Mean 108 112 106 Pulse Ox 98 97 97 Oxygen Delivery Method 02/09/24 11:15 02/09/24 11:20 02/09/24 11:25 Temperature Temperature Source Pulse Rate 86 95 Respiratory Rate 21 H 18 Blood Pressure 149/96 H 125/89 H 137/95 H Blood Pressure Mean 111 101 108 Pulse Ox 96 99 (more content not included)... Normal [facility] Erythrocyte distribution wid th ratioOrdered By: Porfirio Holley on 02-09-2024 Erythrocyte distribution width (RBC) [Ratio] 13.2 % 11.6-14.6 [facility] Erythrocyte distribution wid th standard deviationOrdered By: Porfirio Holley on 02-09-2024 Erythrocyte distribution width (RBC) [Entitic vol] 42.5 fL 35.1-43.9 [facility] Hematocrit Auto (Bld) [Volum e fraction]Ordered By: Porfirio Holley on 02-09-2024 Hematocrit (Bld) [Volume fraction] 42.6 % 40-54 [facility] Immature granulocytes/100 WB C Auto (Bld)Ordered By: Porfirio Holley on 02-09-2024 Immature granulocytes/100 WBC (Bld) 0.400 % 0.0-0.9 [facility] Comment on above: IG% - Immature Granu locytes (promyelocytes, myelocytes and metamyelocytes) > 1% indicates that a LEFT SHIFT is Present. L501.4020on 02-09-2024 TROPONIN-I HS 5 pg/mL Normal 3.0-78.0 [facility] Comment on above: Order Comment: 'TROP ' Serial specimen #1, #2 or #3: 1 1 Result Comment: Plea se Note: New Test Units and Gender Specific Reference Ranges. For more information see Policy Stat Procedure [place] High Sensitivity Troponin (TNIH) and attachments. Performed By: #### L 500.2500, L501.4020, L300.4310, L300.3900, L100.0100 #### [facility] [address] [place], [place], [address] Laboratory - Chemistry and C hemistry - challengeOrdered By: Porfirio Holley on 02-09-2024 CO2 [Moles/Vol] 28.0 mmol/L 21.0-32.0 [facility] Urea nitrogen/Creatinine [Mass ratio] 11.1 mg/mg 10-20 [facility] - CoagulationOrde red By: Porfirio Hloley on 02-09-2024 INR Coag (Bld) [Relative time] 1.0 {INR} [facility] PT Coag (PPP) [Time] 13.0 s 11.7-14.9 [facility] - Hematology and Cell countsOrdered By: Porfirio Holley on 02-09-2024 MCH (RBC) [Entitic mass] 29.1 pg 27.0-32.0 [facility] MCHC (RBC) [Mass/Vol] 33.1 g/dL 32-36 [facility] Nucleated RBC/100 WBC (Bld) [Ratio] 0 % 0-5 [facility] Platelet mean volume (Bld) [Entitic vol] 9.7 fL 6.2-12.0 [facility] Platelets (Bld) [#/Vol] 266 10*3/uL 150-450 [facility] No Panel InformationOrdered By: Porfirio Holley on 02-09-2024 Estimated Creatinine Clearance Calc 90.71 ml/min [facility] Estimated GFR (MDRD) Amer 101 mL/min >60 [facility] Comment on above: GFR Calc Estimated GFR (MDRD) Non-Af Amer 84 mL/min >60 [facility] Comment on above: Non- GFR Calc Troponin I High Sensitivity 5 pg/mL 3.0-78.0 [facility] Comment on above: Please Note: New Kinza t Units and Gender Specific Reference Ranges. For more information see Policy Stat Procedure [place] High Sensitivity Troponin (TNIH) and attachments. Partial Thromboplast Timeon 02-09-2024 aPTT Coag (Bld) [Time] 24.2 s Normal 24.1-36.2 [facility] Comment on above: Performed By: #### L 500.2500, L501.4020, L300.4310, L300.3900, L100.0100 #### [facility] [address] [place], [address] Prothrombin Time w/INRon INR Coag (PPP) [Relative time] 1.0 {INR} Normal [facility] Comment on above: Performed By: #### L 500.2500, L501.4020, L300.4310, L300.3900, L100.0100 #### [facility] [address] [place], [address] PT Coag (PPP) [Time] 13.0 s Normal 11.7-14.9 [facility] Comment on above: Performed By: #### L 500.2500, L501.4020, L300.4310, L300.3900, L100.0100 #### [facility] [address] [place], [address] RBC Auto (Bld) [#/Vol]Ordere d By: Porfirio Holley on 02-09-2024 RBC (Bld) [#/Vol] 4.85 10*6/uL 4.6-6.2 [facility] Serum or plasma calcium geraldine urement (mass/volume)Ordered By: Porfirio Holley on 02-09-2024 Calcium [Mass/Vol] 9.3 mg/dL 8.5-10.1 [facility] Serum or plasma creatinine m easurement (mass/volume)Ordered By: Porfirio Holley on 02-09-2024 Creatinine [Mass/Vol] 0.99 mg/dL 0.70-1.30 [facility] Comment on above: The validity of the calculated GFR & GFRAA in patients over 70 years has not been determined. Clinical correlation is essential. Serum or plasma urea nitroge n measurement (mass/volume)Ordered By: Porfirio Holley on 02-09-2024 Urea nitrogen [Mass/Vol] 11 mg/dL 7-18 [facility] Thin prep Papanicolaou smear with manual screeningOrdered By: Porfirio Holley on 02-09-2024 Thin prep Papanicolaou smear with manual screening 2 5-15 [facility] XR CHEST 2 VIEWSon 4 XR CHEST 2 VIEWS ORIGINAL EXAMINATION: TWO XRAY VIEWS OF THE CHEST 01/24/2024 3:05 pm COMPARISON: None. HISTORY: ORDERING SYSTEM PROVIDED HISTORY: Reason for Exam: Pre-admission testing FINDINGS: The heart size and mediastinal contours are normal. There is no lung infiltrate or edema. No pneumothorax or pleural fluid is present. The skeletal structures are unremarkable. IMPRESSION: No acute cardiopulmonary process. Interpreted by: Emir Parkinson MD Preliminary Report By: Emir Parkinson MD Electronically signed By Emir Parkinson MD Dictated Date: 01/25/2024 1:30:58 AM Prelim Date: 01/25/2024 1:31:41 AM Sign Date: 01/25/2024 1:31:41 AM Ordering Provider: [place] Normal [facility] [place] DIRECT LDLon 12-06-2023 LDL Chol Direct 105 mg/dL High 0-99 [facility] [place] Comment on above: Result Comment: Perf ormed At: [facility] [address] [id number] Ynes Hays PhD Ph:[phone] Performed By: #### 1 #### [address] [address] .Auto Diffon 12-05-2023 Basophil, Absolute 0.1 10 3/mcL Normal 0.0-0.2 [facility]) Comment on above: Performed By: #### P SA, ANEU, CBC, LIPID, ADIFF, CMP, FT4, TSH, GFR, A1C #### [address] [address] Basophils/100 WBC (Bld) 1.7 % Normal 0.0-2.5 [facility]) Comment on above: Performed By: #### P SA, ANEU, CBC, LIPID, ADIFF, CMP, FT4, TSH, GFR, A1C #### [address] [address] Eosinophil, Absolute 0.3 10 3/mcL Normal 0.0-0.4 [facility] ([place]) Comment on above: Performed By: #### P SA, ANEU, CBC, LIPID, ADIFF, CMP, FT4, TSH, GFR, A1C #### [address] [address] Eosinophils/100 WBC (Bld) 4.0 % Normal 0.0-7.0 [facility] ([place]) Comment on above: Performed By: #### P SA, ANEU, CBC, LIPID, ADIFF, CMP, FT4, TSH, GFR, A1C #### [address] [address] Lymphocyte, Absolute 1.7 10 3/mcL Normal 0.8-3.9 [facility] ([place]) Comment on above: Performed By: #### P SA, ANEU, CBC, LIPID, ADIFF, CMP, FT4, TSH, GFR, A1C #### [address] [address] Lymphocytes/100 WBC (Bld) 25.5 % Normal 10.0-50.0 [facility] ([place]) Comment on above: Performed By: #### P SA, ANEU, CBC, LIPID, ADIFF, CMP, FT4, TSH, GFR, A1C #### [address] [address] Monocyte, Absolute 0.6 10 3/mcL Normal 0.2-1.0 [facility] ([place]) Comment on above: Performed By: #### P SA, ANEU, CBC, LIPID, ADIFF, CMP, FT4, TSH, GFR, A1C #### [address] [address] Monocytes/100 WBC (Bld) 9.2 % Normal 1.7-13.0 [facility] ([place]) Comment on above: Performed By: #### P SA, ANEU, CBC, LIPID, ADIFF, CMP, FT4, TSH, GFR, A1C #### [address] [address] Neutrophils/100 WBC (Bld) 59.6 % Normal 37.0-80.0 [facility] ([place]) Comment on above: Performed By: #### P SA, ANEU, CBC, LIPID, ADIFF, CMP, FT4, TSH, GFR, A1C #### [address] [address] .GFRon 12-05-2023 GFR 99 ml/min/1.73sqm Normal [facility] ([place]) Comment on above: Result Comment: GFR Population mean for , Non- Americans Ages 20-29 = 116 mL/min/1.73 sq.m. Ages 30-39 = 107 mL/min/1.73 sq.m. Ages 40-49 = 99 mL/min/1.73 sq.m. Ages 50-59 = 93 mL/min/1.73 sq.m. Ages 60-69 = 85 mL/min/1.73 sq.m. Ages 70+ = 75 mL/min/1.73 sq.m. Chronic Kidney Disease: Less than 60 mL/min/1.73 square meters End Stage Renal Disease: Less than 15 mL/min/1.73 square meters Performed By: #### P SA, ANEU, CBC, LIPID, ADIFF, CMP, FT4, TSH, GFR, A1C ####[address] [place], [place] [address] GFR Non- 82 ml/min/1.73sqm Normal [facility] ([place]) Comment on above: Result Comment: GFR Population mean for , Non- Americans Ages 20-29 = 116 mL/min/1.73 sq.m. Ages 30-39 = 107 mL/min/1.73 sq.m. Ages 40-49 = 99 mL/min/1.73 sq.m. Ages 50-59 = 93 mL/min/1.73 sq.m. Ages 60-69 = 85 mL/min/1.73 sq.m. Ages 70+ = 75 mL/min/1.73 sq.m. Chronic Kidney Disease: Less than 60 mL/min/1.73 square meters End Stage Renal Disease: Less than 15 mL/min/1.73 square meters Performed By: #### P SA, ANEU, CBC, LIPID, ADIFF, CMP, FT4, TSH, GFR, A1C ####[address] [place], [place] [address] .NEUABSon 12-05-2023 Neutrophil, Absolute 4.0 10 3/mcL Normal 2.9-6.2 [facility] ([place]) Comment on above: Performed By: #### P SA, ANEU, CBC, LIPID, ADIFF, CMP, FT4, TSH, GFR, A1C ####[address] [place], [place] [address] A1Con 12-05-2023 HbA1c (Bld) [Mass fraction] 5.7 % Normal 4.3-6.4 [facility] ([place]) Comment on above: Performed By: #### P SA, ANEU, CBC, LIPID, ADIFF, CMP, FT4, TSH, GFR, A1C ####[address] [place], [place] [address] CBCon 12-05-2023 Erythrocyte distribution width (RBC) [Ratio] 13.2 % Normal 11.5-14.5 [facility] ([place]) Comment on above: Performed By: #### P SA, ANEU, CBC, LIPID, ADIFF, CMP, FT4, TSH, GFR, A1C #### [address] [address] Hematocrit (Bld) [Volume fraction] 42.8 % Normal 42.0-52.0 [facility] ([place]) Comment on above: Performed By: #### P SA, ANEU, CBC, LIPID, ADIFF, CMP, FT4, TSH, GFR, A1C #### [place] [id number] Hgb 14.8 G/dL Normal 14.0-18.0 [facility] ([place] Comment on above: Performed By: #### P SA, ANEU, CBC, LIPID, ADIFF, CMP, FT4, TSH, GFR, A1C #### [address] [address] MCH (RBC) [Entitic mass] 29.6 pg Normal 27.0-31.2 [facility] ([place]) Comment on above: Performed By: #### P SA, ANEU, CBC, LIPID, ADIFF, CMP, FT4, TSH, GFR, A1C #### [address] [address] MCHC 34.5 G/dL Normal 31.8-35.4 [facility] ([place]) Comment on above: Performed By: #### P SA, ANEU, CBC, LIPID, ADIFF, CMP, FT4, TSH, GFR, A1C #### [address] [address] MCV (RBC) [Entitic vol] 85.9 fL Normal 80.0-94.0 [facility] ([place]) Comment on above: Performed By: #### P SA, ANEU, CBC, LIPID, ADIFF, CMP, FT4, TSH, GFR, A1C #### [place] [id number] Platelet 262 10 3/mcL Normal 130-400 [facility] ([place]) Comment on above: Performed By: #### P SA, ANEU, CBC, LIPID, ADIFF, CMP, FT4, TSH, GFR, A1C #### [address] [place] [id number] [place], [place] [address] Platelet mean volume (Bld) [Entitic vol] 8.5 fL Normal 7.4-10.4 [facility] ([place]) Comment on above: Performed By: #### P SA, ANEU, CBC, LIPID, ADIFF, CMP, FT4, TSH, GFR, A1C #### Susan [address] [address] RBC 4.98 10 6/mcL Normal 4.04-6.13 [facility] ([place]) Comment on above: Performed By: #### P SA, ANEU, CBC, LIPID, ADIFF, CMP, FT4, TSH, GFR, A1C #### Susan [address] [address] WBC 6.7 10 3/mcL Normal 4.6-10.8 [facility] ([place]) Comment on above: Performed By: #### P SA, ANEU, CBC, LIPID, ADIFF, CMP, FT4, TSH, GFR, A1C #### Susan [address] [address] CMPon 12-05-2023 Albumin Level 4.0 G/dL Normal 3.5-5.0 [facility] ([place]) Comment on above: Performed By: #### P SA, ANEU, CBC, LIPID, ADIFF, CMP, FT4, TSH, GFR, A1C ####[address] [place], [place] [address] Albumin/Globulin [Mass ratio] 1.3 {ratio} Normal 1.1-2.5 [facility] ([place]) Comment on above: Performed By: #### P SA, ANEU, CBC, LIPID, ADIFF, CMP, FT4, TSH, GFR, A1C ####[address] [place], [place] [address] ALP [Catalytic activity/Vol] 56 U/L Normal 40-135 [facility] ([place]) Comment on above: Performed By: #### P SA, ANEU, CBC, LIPID, ADIFF, CMP, FT4, TSH, GFR, A1C ####[address] [place], [place] [address] ALT [Catalytic activity/Vol] 95 U/L High 16-63 [facility] ([place]) Comment on above: Performed By: #### P SA, ANEU, CBC, LIPID, ADIFF, CMP, FT4, TSH, GFR, A1C ####[address] [place], [place] [address] AST [Catalytic activity/Vol] 30 U/L Normal 10-40 [facility] ([place]) Comment on above: Performed By: #### P SA, ANEU, CBC, LIPID, ADIFF, CMP, FT4, TSH, GFR, A1C ####Sus[address] [place], [place] [address] Bili Total 0.6 mg/dL Normal 0.2-1.0 [facility] ([place]) Comment on above: Result Comment: Use of this assay is not recommended for patients undergoing treatment with eltrombopag due to the potential for falsely elevated results. Performed By: #### P SA, ANEU, CBC, LIPID, ADIFF, CMP, FT4, TSH, GFR, A1C ####[address] [place], [place] [address] BUN/Creatinine Ratio 16 ratio Normal 7-27 [facility] ([place]) Comment on above: Performed By: #### P SA, ANEU, CBC, LIPID, ADIFF, CMP, FT4, TSH, GFR, A1C ####[address] [place], [place] [address] Calcium [Mass/Vol] 9.1 mg/dL Normal 8.4-10.2 [facility] ([place]) Comment on above: Performed By: #### P SA, ANEU, CBC, LIPID, ADIFF, CMP, FT4, TSH, GFR, A1C ####[address] [place], [place] [address] Chloride [Moles/Vol] 106 mmol/L Normal 98-107 [facility] ([place]) Comment on above: Performed By: #### P SA, ANEU, CBC, LIPID, ADIFF, CMP, FT4, TSH, GFR, A1C ####[address] [place], [place] [address] CO2 [Moles/Vol] 30 mmol/L High 22-29 [facility] ([place]) Comment on above: Performed By: #### P SA, ANEU, CBC, LIPID, ADIFF, CMP, FT4, TSH, GFR, A1C ####[address] [place], [place] [address] Creatinine [Mass/Vol] 0.96 mg/dL Normal 0.70-1.30 [facility] ([place] Comment on above: Performed By: #### P SA, ANEU, CBC, LIPID, ADIFF, CMP, FT4, TSH, GFR, A1C ####[address] [place], [place] [address] Electrolyte Balance 9.0 mEq/L Normal 4.0-15.0 [facility] ([place]) Comment on above: Performed By: #### P SA, ANEU, CBC, LIPID, ADIFF, CMP, FT4, TSH, GFR, A1C ####[address] [place], [place] [address] Globulin 3.1 G/dL Normal [facility] ([place]) Comment on above: Performed By: #### P SA, ANEU, CBC, LIPID, ADIFF, CMP, FT4, TSH, GFR, A1C ####[address] [place], [place] [address] Glucose [Mass/Vol] 102 mg/dL Normal 70-105 [facility] ([place]) Comment on above: Performed By: #### P SA, ANEU, CBC, LIPID, ADIFF, CMP, FT4, TSH, GFR, A1C ####[address] [place], [place] [address] Potassium [Moles/Vol] 4.5 mmol/L Normal 3.5-5.1 [facility] ([place] Comment on above: Performed By: #### P SA, ANEU, CBC, LIPID, ADIFF, CMP, FT4, TSH, GFR, A1C ####[address] [place], [place] [address] Sodium [Moles/Vol] 145 mmol/L Normal 136-145 [facility] ([place]) Comment on above: Performed By: #### P SA, ANEU, CBC, LIPID, ADIFF, CMP, FT4, TSH, GFR, A1C ####[address] [place], [place] [address] Total Protein 7.1 G/dL Normal 6.4-8.2 [facility] ([place]) Comment on above: Performed By: #### P SA, ANEU, CBC, LIPID, ADIFF, CMP, FT4, TSH, GFR, A1C ####[address] [place], [place] [address] Urea nitrogen [Mass/Vol] 15 mg/dL Normal 7-18 [facility] ([place]) Comment on above: Performed By: #### P SA, ANEU, CBC, LIPID, ADIFF, CMP, FT4, TSH, GFR, A1C ####[address] [place], [place] [address] FT4on 12-05-2023 Free T4 [Mass/Vol] 0.81 ng/dL Normal 0.76-1.46 [facility] ([place]) Comment on above: Performed By: #### P SA, ANEU, CBC, LIPID, ADIFF, CMP, FT4, TSH, GFR, A1C ####[address] [place], [place] [address] LABORATORYOrdered By: SYSTEM SYSTEM on 12-05-2023 Albumin BCP dye [Mass/Vol] 4.0 G/dL Normal 3.5 - 5.0 G/dL AO ADM SS Albumin/Globulin [Mass ratio] 1.3 {ratio} Normal 1.1 - 2.5 ratio AO ADM SS ALP [Catalytic activity/Vol] 56 U/L Normal 40 - 135 U/L AO ADM SS ALT With P-5'-P [Catalytic activity/Vol] 95 U/L High 16 - 63 U/L AO ADM SS AST With P-5'-P [Catalytic activity/Vol] 30 U/L Normal 10 - 40 U/L AO ADM SS Basophil, Absolute 0.1 103/mcL Normal 0.0 - 0.2 10^3/mcL AO Workflow SS Basophils/100 WBC (Bld) 1.7 % Normal 0.0 - 2.5 % AO Workflow SS Bilirubin [Mass/Vol] 0.6 mg/dL Normal 0.2 - 1 .0 mg/dL AO ADM SS Comment on above: Interpretive Data: U se of this assay is not recommended for patients undergoing treatment with eltrombopag due to the potential for falsely elevated results. Calcium [Mass/Vol] 9.1 mg/dL Normal 8.4 - 10. 2 mg/dL AO ADM SS Chloride [Moles/Vol] 106 mmol/L Normal 98 - 10 7 mmol/L AO ADM SS CO2 [Moles/Vol] 30 mmol/L High 22 - 29 mmol/L AO ADM SS Creatinine [Mass/Vol] 0.96 mg/dL Normal 0.70 - 1.30 mg/dL AO ADM SS Electrolyte Balance 9.0 mEq/L Normal 4.0 - 15 .0 mEq/L AO ADM SS Eosinophil, Absolute 0.3 103/mcL Normal 0.0 - 0 .4 10^3/mcL AO Workflow SS Eosinophils/100 WBC (Bld) 4.0 % Normal 0.0 - 7.0 % AO Workflow SS Erythrocyte distribution width (RBC) [Ratio] 13.2 % Normal 11.5 - 14.5 % AO Workflow SS Free T4 [Mass/Vol] 0.81 ng/dL Normal 0.76 - 1. 46 ng/dL AO ADM SS GFR/1.73 sq M.predicted among blacks MDRD (S/P/Bld) [Vol rate/Area] 99 ml/min/1.73sqm Invalid Interpretation Code AO Chemistry S Comment on above: Interpretive Data: GFR Population mean for , Non- Americans Ages 20-29 = 116 mL/min/1.73 sq.m. Ages 30-39 = 107 mL/min/1.73 sq.m. Ages 40-49 = 99 mL/min/1.73 sq.m. Ages 50-59 = 93 mL/min/1.73 sq.m. Ages 60-69 = 85 mL/min/1.73 sq.m. Ages 70+ = 75 mL/min/1.73 sq.m. Chronic Kidney Disease: Less than 60 mL/min/1.73 square meters End Stage Renal Disease: Less than 15 mL/min/1.73 square meters GFR/1.73 sq M.predicted among non-blacks MDRD (S/P/Bld) [Vol rate/Area] 82 ml/min/1.73sqm Invalid Interpretation Code AO Chemistry S Comment on above: Interpretive Data: GFR Population mean for , Non- Americans Ages 20-29 = 116 mL/min/1.73 sq.m. Ages 30-39 = 107 mL/min/1.73 sq.m. Ages 40-49 = 99 mL/min/1.73 sq.m. Ages 50-59 = 93 mL/min/1.73 sq.m. Ages 60-69 = 85 mL/min/1.73 sq.m. Ages 70+ = 75 mL/min/1.73 sq.m. Chronic Kidney Disease: Less than 60 mL/min/1.73 square meters End Stage Renal Disease: Less than 15 mL/min/1.73 square meters Globulin 3.1 G/dL Invalid Interpretation Code AO ADM SS Glucose [Mass/Vol] 102 mg/dL Normal 70 - 105 mg/dL AO ADM SS HbA1c (Bld) [Mass fraction] 5.7 % Normal 4.3 - 6.4 % AO ADM SS Hematocrit (Bld) [Volume fraction] 42.8 % Normal 42.0 - 52.0 % AO Workflow SS Hemoglobin (Bld) [Mass/Vol] 14.8 G/dL Normal 14.0 - 18.0 G/dL AO Workflow SS Lymphocyte, Absolute 1.7 103/mcL Normal 0.8 - 3 .9 10^3/mcL AO Workflow SS Lymphocytes/100 WBC (Bld) 25.5 % Normal 10.0 - 50.0 % AO Workflow SS MCH (RBC) [Entitic mass] 29.6 pg Normal 27.0 - 31.2 pg AO Workflow SS MCHC 34.5 G/dL Normal 31.8 - 35.4 G/dL AO Workflow SS MCV (RBC) [Entitic vol] 85.9 fL Normal 80.0 - 94.0 fL AO Workflow SS Monocyte, Absolute 0.6 103/mcL Normal 0.2 - 1.0 10^3/mcL AO Workflow SS Monocytes/100 WBC (Bld) 9.2 % Normal 1.7 - 13.0 % AO Workflow SS Neutrophil, Absolute 4.0 103/mcL Normal 2.9 - 6 .2 10^3/mcL AO Workflow SS Neutrophils/100 WBC (Bld) 59.6 % Normal 37.0 - 80.0 % AO Workflow SS Platelet mean volume (Bld) [Entitic vol] 8.5 fL Normal 7.4 - 10.4 fL AO Workflow SS Platelets (Bld) [#/Vol] 262 103/mcL Normal 130 - 400 10^3/mcL AO Workflow SS Potassium [Moles/Vol] 4.5 mmol/L Normal 3.5 - 5.1 mmol/L AO ADM SS Prostate specific Ag [Mass/Vol] 3.50 ng/mL Normal 0.00 - 4.00 ng/mL AO ADM SS Protein [Mass/Vol] 7.1 G/dL Normal 6.4 - 8.2 G/dL AO ADM SS RBC (Bld) [#/Vol] 4.98 106/mcL Normal 4.04 - 6.1 3 10^6/mcL AO Workflow SS Sodium [Moles/Vol] 145 mmol/L Normal 136 - 145 mmol/L AO ADM SS TSH Qn 1.15 m[IU]/L Normal 0.36 - 3.74 mcIU/mL AO ADM SS Urea nitrogen [Mass/Vol] 15 mg/dL Normal 7 - 18 mg/dL AO ADM SS Urea nitrogen/Creatinine [Mass ratio] 16 ratio Normal 7 - 27 ratio AO ADM SS WBC (Bld) [#/Vol] 6.7 103/mcL Normal 4.6 - 10.8 10^3/mcL AO Workflow SS LABORATORYOrdered By: Talita Thurman on 12-05-2023 Cholesterol [Mass/Vol] 188 mg/dL Normal 0 - 200 mg/dL AO ADM SS Comment on above: Interpretive Data: C holesterol Reference Interval: Less than 200 Desirable 200-239 Borderline high risk 240 and above High risk Cholesterol in HDL [Mass/Vol] 55 mg/dL Normal 40 - 60 mg/dL AO ADM SS Cholesterol in LDL [Mass/Vol] 108 mg/dL Normal 0 - 130 mg/dL AO ADM SS Triglyceride [Mass/Vol] 124 mg/dL Normal 0 - 150 mg/dL AO ADM SS Comment on above: Interpretive Data: T riglyceride Reference Interval: Less than 150 Normal 150-199 Borderline high risk 200-499 High risk 500 or higher Very high risk LIPIDon 12-05-2023 Cholesterol [Mass/Vol] 188 mg/dL Normal 0-200 [facility] ([place]) Comment on above: Result Comment: Chol esterol Reference Interval: Less than 200 Desirable 200-239 Borderline high risk 240 and above High risk Performed By: #### P SA, ANEU, CBC, LIPID, ADIFF, CMP, FT4, TSH, GFR, A1C ####[address] [place], [place] [address] Cholesterol in HDL [Mass/Vol] 55 mg/dL Normal 40-60 [facility] ([place]) Comment on above: Performed By: #### P SA, ANEU, CBC, LIPID, ADIFF, CMP, FT4, TSH, GFR, A1C ####[address] [place], [place] [address] Cholesterol in LDL [Mass/Vol] 108 mg/dL Normal 0-130 [facility] ([place]) Comment on above: Performed By: #### P SA, ANEU, CBC, LIPID, ADIFF, CMP, FT4, TSH, GFR, A1C ####[address] [place], [place] [address] Triglyceride [Mass/Vol] 124 mg/dL Normal 0-150 [facility] ([place]) Comment on above: Result Comment: Trig lyceride Reference Interval: Less than 150 Normal 150-199 Borderline high risk 200-499 High risk 500 or higher Very high risk Performed By: #### P SA, ANEU, CBC, LIPID, ADIFF, CMP, FT4, TSH, GFR, A1C ####[address] [place], [place] [address] PSAon 12-05-2023 Prostate Specific Antigen 3.50 ng/mL Normal 0.00-4.00 [facility] ([place]) Comment on above: Performed By: #### P SA, ANEU, CBC, LIPID, ADIFF, CMP, FT4, TSH, GFR, A1C ####[address] [place], [place] [address] TSHon 12-05-2023 TSH Qn 1.15 m[IU]/L Normal 0.36-3.74 [facility] ([place]) Comment on above: Performed By: #### P SA, ANEU, CBC, LIPID, ADIFF, CMP, FT4, TSH, GFR, A1C ####Susan [address] [place], [place] [address] LABORATORYOrdered By: SYSTEM SYSTEM on 05-22-2023 Albumin BCP dye [Mass/Vol] 4.4 G/dL Invalid Interpretation Code 3.5 - 5.0 G/dL AO ADM SS Albumin/Globulin [Mass ratio] 1.6 {ratio} Invalid Interpretation Code 1.1 - 2.5 ratio AO ADM SS ALP [Catalytic activity/Vol] 53 U/L Invalid Interpretation Code 40 - 135 U/L AO ADM SS ALT With P-5'-P [Catalytic activity/Vol] 61 U/L Invalid Interpretation Code 16 - 63 U/L AO ADM SS AST With P-5'-P [Catalytic activity/Vol] 26 U/L Invalid Interpretation Code 10 - 40 U/L AO ADM SS Bilirubin [Mass/Vol] 0.7 mg/dL Invalid Interpretation Code 0.2 - 1.0 mg/dL AO ADM SS Bilirubin.direct [Mass/Vol] 0.1 mg/dL Invalid Interpretation Code 0.0 - 0.2 mg/dL AO ADM SS Bilirubin.direct [Mass/Vol] 0.6 mg/dL Invalid Interpretation Code AO Chemistry S Globulin 2.8 G/dL Invalid Interpretation Code AO ADM SS HbA1c (Bld) [Mass fraction] 6.0 % Invalid Interpretation Code 4.3 - 6.4 % AO ADM SS Protein [Mass/Vol] 7.2 G/dL Invalid Interpretation Code 6.4 - 8.2 G/dL AO ADM SS LABORATORYOrdered By: SYSTEM SYSTEM on 11-30-2022 Albumin BCP dye [Mass/Vol] 4.1 G/dL Invalid Interpretation Code 3.5 - 5.0 G/dL AO ADM SS Albumin/Globulin [Mass ratio] 1.4 {ratio} Invalid Interpretation Code 1.1 - 2.5 ratio AO ADM SS ALP [Catalytic activity/Vol] 60 U/L Invalid Interpretation Code 40 - 135 U/L AO ADM SS ALT With P-5'-P [Catalytic activity/Vol] 66 U/L Invalid Interpretation Code 16 - 63 U/L AO ADM SS AST With P-5'-P [Catalytic activity/Vol] 20 U/L Invalid Interpretation Code 10 - 40 U/L AO ADM SS Bilirubin [Mass/Vol] 0.5 mg/dL Invalid Interpretation Code 0.2 - 1.0 mg/dL AO ADM SS Calcium [Mass/Vol] 9.7 mg/dL Invalid Interpretation Code 8.4 - 10.2 mg/dL AO ADM SS Chloride [Moles/Vol] 103 mmol/L Invalid Interpretation Code 98 - 107 mmol/L AO ADM SS CO2 [Moles/Vol] 32 mmol/L Invalid Interpretation Code 22 - 29 mmol/L AO ADM SS Cobalamin (Vitamin B12) [Mass/Vol] 391 pg/mL Invalid Interpretation Code 211 - 911 pg/mL AH ADM SS Creatinine [Mass/Vol] 1.00 mg/dL Invalid Interpretation Code 0.70 - 1.30 mg/dL AO ADM SS Electrolyte Balance 6.0 mEq/L Invalid Interpretation Code 4.0 - 15.0 mEq/L AO ADM SS GFR 95 ml/min/1.73sqm Invalid Interpretation Code AO Chemistry S GFR Non- 78 ml/min/1.73sqm Invalid Interpretation Code AO Chemistry S Globulin 2.9 G/dL Invalid Interpretation Code AO ADM SS Glucose [Mass/Vol] 110 mg/dL Invalid Interpretation Code 70 - 105 mg/dL AO ADM SS HbA1c (Bld) [Mass fraction] 5.9 % Invalid Interpretation Code 4.3 - 6.4 % AO ADM SS Potassium [Moles/Vol] 4.4 mmol/L Invalid Interpretation Code 3.5 - 5.1 mmol/L AO ADM SS Prostate specific Ag [Mass/Vol] 1.46 ng/mL Invalid Interpretation Code 0.00 - 4.00 ng/mL AO ADM SS Protein [Mass/Vol] 7.0 G/dL Invalid Interpretation Code 6.4 - 8.2 G/dL AO ADM SS Sodium [Moles/Vol] 141 mmol/L Invalid Interpretation Code 136 - 145 mmol/L AO ADM SS Urea nitrogen [Mass/Vol] 15 mg/dL Invalid Interpretation Code 7 - 18 mg/dL AO ADM SS Urea nitrogen/Creatinine [Mass ratio] 15 ratio Invalid Interpretation Code 7 - 27 ratio AO ADM SS LABORATORYOrdered By: Flori Hansen on 11-30-2022 Basophil, Absolute 0.1 103/mcL Invalid Interpretation Code 0.0 - 0.2 10^3/mcL AO Workflow SS Basophils/100 WBC (Bld) 1.0 % Invalid Interpretation Code 0.0 - 2.5 % AO Workflow SS Cholesterol [Mass/Vol] 192 mg/dL Invalid Interpretation Code 0 - 200 mg/dL AO ADM SS Cholesterol in HDL [Mass/Vol] 57 mg/dL Invalid Interpretation Code 40 - 60 mg/dL AO ADM SS Cholesterol in LDL [Mass/Vol] 115 mg/dL Invalid Interpretation Code 0 - 130 mg/dL AO ADM SS Eosinophil, Absolute 0.2 103/mcL Invalid Interpretation Code 0.0 - 0.4 10^3/mcL AO Workflow SS Eosinophils/100 WBC (Bld) 3.5 % Invalid Interpretation Code 0.0 - 7.0 % AO Workflow SS Erythrocyte distribution width (RBC) [Ratio] 13.4 % Invalid Interpretation Code 11.5 - 14.5 % AO Workflow SS Hematocrit (Bld) [Volume fraction] 44.0 % Invalid Interpretation Code 42.0 - 52.0 % AO Workflow SS Hemoglobin (Bld) [Mass/Vol] 14.9 G/dL Invalid Interpretation Code 14.0 - 18.0 G/dL AO Workflow SS Lymphocyte, Absolute 1.7 103/mcL Invalid Interpretation Code 0.8 - 3.9 10^3/mcL AO Workflow SS Lymphocytes/100 WBC (Bld) 27.6 % Invalid Interpretation Code 10.0 - 50.0 % AO Workflow SS MCH (RBC) [Entitic mass] 29.0 pg Invalid Interpretation Code 27.0 - 31.2 pg AO Workflow SS MCHC 33.9 G/dL Invalid Interpretation Code 31.8 - 35.4 G/dL AO Workflow SS MCV (RBC) [Entitic vol] 85.3 fL Invalid Interpretation Code 80.0 - 94.0 fL AO Workflow SS Monocyte, Absolute 0.7 103/mcL Invalid Interpretation Code 0.2 - 1.0 10^3/mcL AO Workflow SS Monocytes/100 WBC (Bld) 10.9 % Invalid Interpretation Code 1.7 - 13.0 % AO Workflow SS Neutrophil, Absolute 3.5 103/mcL Invalid Interpretation Code 2.9 - 6.2 10^3/mcL AO Workflow SS Neutrophils/100 WBC (Bld) 57.0 % Invalid Interpretation Code 37.0 - 80.0 % AO Workflow SS Platelet mean volume (Bld) [Entitic vol] 7.6 fL Invalid Interpretation Code 7.4 - 10.4 fL AO Workflow SS Platelets (Bld) [#/Vol] 300 103/mcL Invalid Interpretation Code 130 - 400 10^3/mcL AO Workflow SS RBC (Bld) [#/Vol] 5.15 106/mcL Invalid Interpretation Code 4.04 - 6.13 10^6/mcL AO Workflow SS Triglyceride [Mass/Vol] 100 mg/dL Invalid Interpretation Code 0 - 150 mg/dL AO ADM SS WBC (Bld) [#/Vol] 6.1 103/mcL Invalid Interpretation Code 4.6 - 10.8 10^3/mcL AO Workflow SS LABORATORYOrdered By: [place] on 11-30-2022 HCV Ab IA Ql Non-Reactive (11/30/22 7:19 AM) Invalid Interpretation Code Non-Reactive ADM SS HCV Ab IA Ql Nonreactive: Samples with a value < 0.80 are considered nonreactive (negative) for antibodies to HCV.A negative test result does not exclude the possibility of exposure to or infection with HCV. HCV antibodies may be undetectable in some stages of the infection and in some clinical conditions. Invalid Interpretation Code Chemistry S XR CERV OTHER 4V AP/LAT/OBLo n 07-19-2022 [facility] XR CERVICAL 4V AP/LAT/OBLon 07-19-2022 XR CERVICAL 4V AP/LAT/OBL * * *Final Report* * * DATE OF EXAM: Jul 19 2022 8:12AM [id number] - XR CERVICAL 4V AP/LAT/OBL / PROCEDURE REASON: cervical radiculopathy m54.12 * * * * Physician Interpretation * * * * Examination: XR CERVICAL 4V AP/LAT/OBL History: cervical radiculopathy m54.12 Technique: XR CERVICAL 4V AP/LAT/OBL Comparison: None RESULT: The vertebral bodies are well aligned. Normal cervical lordosis. Moderate mid cervical degenerative change and osteophytosis. Moderate disc space narrowing at C5-6 and C6-7. No fracture or prevertebral swelling. Marginal osteophyte on the right at C5-6 and on the left at C5-6 and 7. IMPRESSION: DEGENERATIVE CHANGES DESCRIBED Integrity Engineer: SABRINA Transcribe Date/Time: Jul 19 2022 8:20A Dictated by : SHERI CARDENAS MD This examination was interpreted and the report reviewed and electronically signed by: SHERI CARDENAS MD on Jul 19 2022 8:21AM EST [id number] Normal [facility] LABORATORYOrdered By: Talita Thurman on 03-21-2022 Basophil, Absolute 0.10 103/mcL Invalid Interpretation Code 0.00 - 0.19 10^3/mcL AO Auto Heme SS Basophils/100 WBC (Bld) 1.7 % Invalid Interpretation Code 0.0 - 2.5 % AO Auto Heme SS Eosinophil, Absolute 0.20 103/mcL Invalid Interpretation Code 0.00 - 0.40 10^3/mcL AO Auto Heme SS Eosinophils/100 WBC (Bld) 3.7 % Invalid Interpretation Code 0.0 - 7.0 % AO Auto Heme SS Erythrocyte distribution width (RBC) [Ratio] 13.9 % Invalid Interpretation Code 11.5 - 14.5 % AO Auto Heme SS HbA1c (Bld) [Mass fraction] 6.0 % Invalid Interpretation Code 4.3 - 6.4 % AO ADM SS Hematocrit (Bld) [Volume fraction] 41.3 % Invalid Interpretation Code 42.0 - 52.0 % AO Auto Heme SS Hemoglobin (Bld) [Mass/Vol] 13.9 G/dL Invalid Interpretation Code 14.0 - 18.0 G/dL AO Auto Heme SS Lymphocyte, Absolute 1.50 103/mcL Invalid Interpretation Code 0.77 - 3.85 10^3/mcL AO Auto Heme SS Lymphocytes/100 WBC (Bld) 26.3 % Invalid Interpretation Code 10.0 - 50.0 % AO Auto Heme SS MCH (RBC) [Entitic mass] 28.4 pg Invalid Interpretation Code 27.0 - 31.2 pg AO Auto Heme SS MCHC (RBC) [Mass/Vol] 33.7 G/dL Invalid Interpretation Code 31.8 - 35.4 G/dL AO Auto Heme SS MCV (RBC) [Entitic vol] 84.1 fL Invalid Interpretation Code 80.0 - 94.0 fL AO Auto Heme SS Monocyte, Absolute 0.50 103/mcL Invalid Interpretation Code 0.15 - 1.00 10^3/mcL AO Auto Heme SS Monocytes/100 WBC (Bld) 9.7 % Invalid Interpretation Code 1.7 - 13.0 % AO Auto Heme SS Neutrophil, Absolute 3.30 103/mcL Invalid Interpretation Code 2.85 - 6.16 10^3/mcL AO Auto Heme SS Neutrophils/100 WBC (Bld) 58.6 % Invalid Interpretation Code 37.0 - 80.0 % AO Auto Heme SS Platelet mean volume (Bld) [Entitic vol] 8.3 fL Invalid Interpretation Code 7.4 - 10.4 fL AO Auto Heme SS Platelets (Bld) [#/Vol] 258 103/mcL Invalid Interpretation Code 130 - 400 10^3/mcL AO Auto Heme SS RBC (Bld) [#/Vol] 4.91 106/mcL Invalid Interpretation Code 4.04 - 6.13 10^6/mcL AO Auto Heme SS WBC (Bld) [#/Vol] 5.60 103/mcL Invalid Interpretation Code 4.60 - 10.80 10^3/mcL AO Auto Heme SS LABORATORYOrdered By: Daniele Velasquez on 10-28-2021 ADMITTED TO INTENSIVE CARE UNIT FOR CONDITION OF INTEREST:FIND:PT:^ALEJANDRO ENT:ORD: No (10/28/21 1:19 PM) Invalid Interpretation Code AO Auto Urine SS EMPLOYED IN A HEALTHCARE SETTING:FIND:PT:^PATIE NT:ORD: No (10/28/21 1:19 PM) Invalid Interpretation Code AO Auto Urine SS FIRST TEST FOR CONDITION OF INTEREST:FIND:PT:^ALEJANDRO ENT:ORD: No (10/28/21 1:19 PM) Invalid Interpretation Code AO Auto Urine SS HAS SYMPTOMS RELATED TO CONDITION OF INTEREST:FIND:PT:^ALEJANDRO ENT:ORD: Yes (10/28/21 1:19 PM) Invalid Interpretation Code AO Auto Urine SS Illness or injury onset date and time [id number] Invalid Interpretation Code AO Auto Urine SS Patient was hospitalized because of this condition No (10/28/21 1:19 PM) Invalid Interpretation Code AO Auto Urine SS status Not (10/28/21 1:19 PM) Invalid Interpretation Code AO Auto Urine SS RESIDES IN A CONGREGATE CARE SETTING:FIND:PT:^PATIE NT:ORD: No (10/28/21 1:19 PM) Invalid Interpretation Code AO Auto Urine SS SARS-CoV-2 (COVID-19) RNA SHIRLEY+probe Ql (Resp) Positive *ABN* (10/28/21 1:19 PM) Invalid Interpretation Code Negative AO Auto Urine SS SARS-CoV-2 (COVID-19) RNA SHIRLEY+probe Ql (Unsp spec) Positive results are indicative of the presence of SARS-CoV-2 RNA; clinical correlation with patient history and other diagnostic information is necessary to determine patient infection status. Positive results do not rule out bacterial infection or co-infection with other viruses. The agent detected may not be the definite cause of disease. Laboratories within the [place] and its territories are required to report all positive results to the appropriate public health authorities.Detecti on of analyte target(s) does not imply that the corresponding virus(es) are infectious or are the causative agents for clinical symptoms.There is a risk of false positive values resulting from cross-contamination by target organisms, their nucleic acids or amplified product, or from non-specific signals in the assay.[employer] SARS-CoV-2 Assay is a Real-Time reverse-transcripta se polymerase chain reaction (RT-PCR) based qualitative in vitro diagnostic test intended for the qualitative detection of nucleic acid from the SARS-CoV-2 in nasopharyngeal swab specimens collected from individuals suspected of COVID-19 by their healthcare provider. Testing is limited to laboratories certified under the Clinical Laboratory Improvement Amendments of 1988 (CLIA), 42 U.S.C. 263a, to perform moderate and high complexity tests. Invalid Interpretation Code AO Auto Urine SS HDL Cholesterol Profileon HDL Cholesterol 47 mg/dL Normal 35-90 [facility] Comment on above: Result Comment: HDL Reference Interval: Less than 40 Low - high risk 60 or above Optimal/lowers risk ----- Performed By: #### L IPID ####Susan [address] [address] LDL Cholesterol 135 mg/dL High 0-130 [facility] Comment on above: Result Comment: LDL is a calculated result and requires a 12- hr fast. LDL Reference Interval: Less than 100 Optimal 100-129 Near or above optimal 130-159 Borderline high risk 160-189 High risk 190 and above Very high risk ------ Performed By: #### L IPID ####Susan [address] [address] Cholesterol 210 mg/dL High 131-200 [facility] Comment on above: Result Comment: Chol esterol Reference Interval: Less than 200 Desirable 200-239 Borderline high risk 240 and above High risk ----- Performed By: #### L IPID ####Susan [address] [address] Triglyceride 140 mg/dL Normal 40-150 [facility] Comment on above: Result Comment: Trig lyceride Reference Interval: Less than 150 Normal 150-199 Borderline high risk 200-499 High risk 500 or higher Very high risk ----- Performed By: #### L IPID ####Susan [address] [address] Hepatic Function Panel (AO)o n 05-24-2017 Aspartate aminotransferase (AST) 21 U/L Normal 10-40 [facility] Comment on above: Performed By: #### H FPO ####Susan [address] [address] Alanine aminotransferase (ALT) 41 U/L High 10-35 [facility] Comment on above: Performed By: #### H FPO ####Susan [address] [address] Alk. Phosphatase 58 IU/L Normal 40-135 [facility] Comment on above: Performed By: #### H FPO ####Susan [place] [address] Bilirubin (direct) 0.4 mg/dL Normal 0.2-1.0 [facility] Comment on above: Performed By: #### H FPO ####[address] [address] Bilirubin (direct) mg/dL Normal 0.1-0.5 [facility] Comment on above: Performed By: #### H FPO ####[address] [address] Bilirubin (indirect) NOT VALID Normal [facility] Comment on above: Result Comment: Unab le to calculate this test result accurately. Resultsused to calculate this test are outside the reportable range. Performed By: #### H FPO ####[address] [address] T. Protein 7.0 G/dL Normal 6.0-8.3 [facility] Comment on above: Performed By: #### H FPO ####[address] [address] Albumin 4.6 G/dL Normal 3.5-5.0 [facility] Comment on above: Performed By: #### H FPO ####[address] [address] Vital Signs Date Time Vital Sign Value Performing Clinician Facility 02-09-2024 14:12-0400 Body temperature 98.8 [degF] [facility] 02-09-2024 14:12-0400 Diastolic blood pressure 81 mm[Hg] [facility] 02-09-2024 14:12-0400 Heart rate 86 /min [facility] 02-09-2024 14:12-0400 Respiratory rate 20 /min [facility] 02-09-2024 14:12-0400 SaO2% (BldA) [Mass fraction] 98 % [facility] 02-09-2024 14:12-0400 Systolic blood pressure 139 mm[Hg] [facility] 02-09-2024 10:24-0400 Body height 172.72 cm [facility] 02-09-2024 10:24-0400 Body mass index (BMI) [Ratio] 27.8 kg/m2 [facility] 02-09-2024 10:24-0400 Body weight 83.18 kg [facility] 02-07-2024 13:03-0400 Diastolic Blood Pressure Non-Invasive 62 mm[Hg] ANAHI PLEITEZ MD [facility] 02-07-2024 13:03-0400 Systolic Blood Pressure Non-Invasive 92 mm[Hg] ANAHI PLEITEZ MD [facility] 02-07-2024 12:54-0400 Diastolic Blood Pressure Non-Invasive 55 mm[Hg] ANAHI PLEITEZ MD [facility] 02-07-2024 12:54-0400 Heart rate 82 /min ANAHI PLEITEZ MD [facility] 02-07-2024 12:54-0400 Respiratory rate 13 /min ANAHI PLEITEZ MD [facility] 02-07-2024 12:54-0400 Systolic Blood Pressure Non-Invasive 86 mm[Hg] ANAHI PLEITEZ MD [facility] 02-07-2024 11:40-0400 Diastolic Blood Pressure Non-Invasive 70 mm[Hg] ANAHI PLEITEZ MD [facility] 02-07-2024 11:40-0400 Heart rate 79 /min ANAHI PLEITEZ MD [facility] 02-07-2024 11:40-0400 Respiratory rate 15 /min ANAHI PLEITEZ MD [facility] 02-07-2024 11:40-0400 Systolic Blood Pressure Non-Invasive 103 mm[Hg] ANAHI PLEITEZ MD [facility] 02-07-2024 11:01-0400 Heart rate 72 /min ANAHI PLEITEZ MD [facility] 02-07-2024 11:01-0400 Respiratory rate 10 /min ANAHI PLEITEZ MD [facility] 02-07-2024 10:06-0400 Body temperature 96.98 [degF] ANAHI PLEITEZ MD [facility] 02-07-2024 10:05-0400 Respiratory Rate - Anes 0 br/min ANAHI PLEITEZ MD [facility] 02-07-2024 10:00-0400 Respiratory Rate - Anes 9 br/min ANAHI PLEITEZ MD [facility] 02-07-2024 09:55-0400 Respiratory Rate - Anes 4 br/min ANAHI PLEITEZ MD [facility] 02-07-2024 09:45-0400 Body temperature 96.8 [degF] ANAHI PLEITEZ MD [facility] 02-07-2024 07:24-0400 Body temperature 98.06 [degF] ANAHI PLEITEZ MD [facility] 02-07-2024 07:24-0400 Heart rate 88 /min ANAHI PLEITEZ MD [facility] 02-07-2024 07:21-0400 Body height 173 cm ANAHI PLEITEZ MD [facility] 02-07-2024 07:21-0400 Body weight 79.5 kg ANAHI PLEITEZ MD [facility] 02-07-2024 07:21-0400 Body weight 26.56 kg/m2 ANAHI PLEITEZ MD [facility] 01-24-2024 14:10-0400 Body height 172.7 cm ANAHI PLEITEZ MD [facility] 01-24-2024 14:10-0400 Body weight 79.5 kg ANAHI PLEITEZ MD [facility] 01-24-2024 14:10-0400 Body weight 26.66 kg/m2 ANAHI PLEITEZ MD [facility] 01-24-2024 14:10-0400 Diastolic Blood Pressure Non-Invasive 84 mm[Hg] ANAHI PLEITEZ MD [facility] 01-24-2024 14:10-0400 Heart rate 87 /min ANAHI PLEITEZ MD [facility] 01-24-2024 14:10-0400 Respiratory rate 20 /min ANAHI PLEITEZ MD [facility] 01-24-2024 14:10-0400 Systolic Blood Pressure Non-Invasive 131 mm[Hg] ANAHI PLEITEZ MD [facility] 11-02-2021 13:13-0500 Body temperature 98.6 [degF] MARGIE ESPINOSA MD [facility] 11-02-2021 13:13-0500 Diastolic blood pressure 93 mm[Hg] MARGIE ESPINOSA MD [facility] 11-02-2021 13:13-0500 Heart rate 78 /min MARGIE ESPINOSA MD [facility] 11-02-2021 13:13-0500 Mean blood pressure 105 mm[Hg] MARGIE ESPINOSA MD [facility] 11-02-2021 13:13-0500 Reason For Taking VItal Signs MARGIE ESPINOSA MD [facility] 11-02-2021 13:13-0500 Respiratory rate 18 /min MARGIE ESPINOSA MD [facility] 11-02-2021 13:13-0500 Signs/Symptoms Transfusion Reaction MARGIE ESPINOSA MD [facility] 11-02-2021 13:13-0500 Systolic blood pressure 130 mm[Hg] MARGIE ESPINOSA MD [facility] 11-02-2021 12:00-0500 Body temperature 98.42 [degF] MARGIE ESPINOSA MD [facility] 11-02-2021 12:00-0500 Body weight 80.1 kg MARGIE ESPINOSA MD [facility] 11-02-2021 12:00-0500 Heart rate 80 /min MARGIE ESPINOSA MD [facility] 11-02-2021 11:45-0500 diastolic 87 mm[Hg] MARGIE ESPINOSA MD [facility] 11-02-2021 11:45-0500 Heart rate 82 /min MARGIE ESPINOSA MD [facility] 11-02-2021 11:45-0500 Respiratory rate 16 /min MARGIE ESPINOSA MD [facility] 11-02-2021 11:45-0500 systolic 131 mm[Hg] MARGIE ESPINOSA MD [facility] Encounters Encounter Date Encounter Type Care Provider Facility Start: 12-05-2024 End: 12-09-2024 ambulatory BALA WANG DO Facility:[facility] Start: 12-05-2024 End: 12-09-2024 Encounter for general adult medical examination without abnormal findings BALA WANG DO Facility:[facility] Start: 12-05-2024 End: 12-09-2024 Outreach Lab BALA WANG DO [facility] Start: 06-17-2024 End: 06-21-2024 ambulatory BALA WANG DO Facility:[facility] Start: 06-17-2024 End: 06-21-2024 Encounter for general adult medical examination without abnormal findings BALA WANG DO Facility:[facility] Start: 06-17-2024 End: 06-21-2024 Outreach Lab BALA WANG DO [facility] Start: 06-09-2024 End: 06-09-2024 ambulatory ELI VICK Facility:[facility] Start: 06-09-2024 End: 06-09-2024 Patient encounter procedure ELI VICK [employer] TECHNICIAN-ASSURANCE SOURCING MANAGER [facility] Start: 04-25-2024 End: 04-25-2024 ambulatory DEYVI MOREL MD Facility:[facility] Start: 04-25-2024 End: 04-25-2024 Patient encounter procedure DEYVI MOREL MD [facility] Start: 03-18-2024 End: 03-18-2024 ambulatory DEYVI MOREL MD Facility:[facility] Start: 03-18-2024 End: 03-18-2024 Patient encounter procedure DEYVI MOREL MD [facility] Start: 03-06-2024 End: 03-06-2024 ambulatory BALA WANG DO Facility:[facility] Start: 03-06-2024 End: 03-06-2024 Patient encounter procedure BALA WANG DO [facility] Start: 03-04-2024 End: 03-04-2024 ambulatory DEYVI MOREL MD Facility:[facility] Start: 02-21-2024 End: 02-21-2024 ambulatory NEW BETANCOURT [employer] TECHNICIAN-ASSURANCE SOURCING MANAGER Facility:[facility] Start: 02-21-2024 End: 02-21-2024 Patient encounter procedure NEW EDWIN BETANCOURT [employer] TECHNICIAN-ASSURANCE SOURCING MANAGER [facility] Start: 02-09-2024 End: 02-09-2024 Emergency department patient visit [facility] Work Phone: Start: 02-07-2024 End: 02-07-2024 ambulatory ANAHI PLEITEZ MD Facility:[facility] Start: 02-07-2024 End: 02-07-2024 SAME DAY STAY ANAHI PLEITEZ MD [facility] Start: 01-24-2024 End: 01-24-2024 ambulatory NEW BETANCOURT [employer] TECHNICIAN-ASSURANCE SOURCING MANAGER Facility:[facility] Start: 01-24-2024 End: 01-24-2024 Patient encounter procedure NEW EDWIN BETANCOURT [employer] TECHNICIAN-ASSURANCE SOURCING MANAGER [facility] Start: 01-24-2024 End: 01-24-2024 Admission to establishment ANAHI PLEITEZ MD [facility] Start: 01-24-2024 End: 01-24-2024 ambulatory ANAHI PLEITEZ MD Facility:[facility] Start: 12-05-2023 End: 12-05-2023 ambulatory BALA WANG DO Facility:[facility] Start: 12-05-2023 End: 12-05-2023 Patient encounter procedure BALA WANG DO [facility] Start: 05-22-2023 End: 05-22-2023 Patient encounter procedure BALA WANG DO [facility] Start: 05-22-2023 End: 05-22-2023 Well adult monitoring check done BALA WANG DO [facility] Start: 01-15-2023 Non-patient / Non-visit Dr. Justin Wang Work Phone: [facility] Start: 01-15-2023 End: 01-15-[address] Bala Wang Work Phone: [facility] Work Phone: Start: 01-15-2023 End: 01-15-[address] Bala Wang Work Phone: [facility] Start: 11-30-2022 End: 11-30-2022 Patient encounter procedure BALA WANG DO [facility] Start: 07-19-2022 End: 07-19-2022 Subsequent hospital visit by physician [facility] Work Phone: Radiology Start: 03-21-2022 End: 05-10-2022 Patient encounter procedure MARY FOSTER DO [facility] Start: 11-02-2021 End: 11-02-2021 Patient encounter procedure MARGIE ESPINOSA MD [facility] Start: 10-28-2021 End: 10-28-2021 Patient encounter procedure JENNYFER CASANOVA [employer] TECHNICIAN-ASSURANCE SOURCING MANAGER [facility] Start: 05-24-2017 Ambulatory [facility] Facility: [facility] Procedures Date Procedure Procedure Detail Performing Clinician Start: 02-09-2024 Plain chest X-ray Start: 02-09-2024 CT angiography of he ad and neck Start: 02-07-2024 History of repair of right inguinal hernia using robotic assistance ANAHI PLEITEZ MD Start: 07-19-2022 Radex spine cervical 4 or 5 views [facility] Provider Start: 01-28-2021 Colonoscopy [facility] Work Phone: Start: 06-21-2018 Glaucoma screening JENNYFER CASANOVA [employer] TECHNICIAN-ASSURANCE SOURCING MANAGER Comment on above: Dr. Patterson Start: 06-21-2018 Ophthalmic examinati on and evaluation JENNYFER CASANOVA [employer] TECHNICIAN-ASSURANCE SOURCING MANAGER Comment on above: Dr. Patterson Start: 08-17-2015 Measurement of respi ratory function JENNYFER CASANOVA [employer] TECHNICIAN-ASSURANCE SOURCING MANAGER Comment on above: fully reversible mil d lg airway-obstructive ventilatory defect consistent of dx of asthma Dr. Lemus; [facility] Start: 03-07-2007 Cholecystectomy JENNYFER KRISHNAMURTHY [employer] TECHNICIAN-ASSURANCE SOURCING MANAGER Comment on above: [facility] Start: 11-12-2000 Vasectomy JENNYFER De Paz [employer] TECHNICIAN-ASSURANCE SOURCING MANAGER History of repair of inguinal hernia S/P right inguinal hernia repair DEYVI MOREL MD Plan of Treatment Date Care Activity Detail Author Start: 01-28-2031 Colonoscopy COLONOSCOPY [facility] Start: 01-28-2031 COLORECTAL CANCER SCREENING COLORECTAL CANCER SCREENING [facility] Start: 02-09-2024 [facility] Start: 02-09-2024 Oxygen therapy [facility] Start: 02-09-2024 End: 02-09-2024 [facility] Start: 07-13-2022 Influenza vaccination INFLUENZA (#1) [facility] Start: 2020 SHINGRIX VACCINE (1 of 2) SHINGRIX VACCINE (1 of 2) [facility] Start: 2015 COLOGUARD (FIT-DNA) COLOGUARD (FIT-DNA) [facility] Start: [address] COLONOGRAPHY [facility] Start: 2015 DIABETES SCREEN DIABETES SCREEN [facility] Start: 2015 FECAL OCCULT BLOOD FECAL OCCULT BLOOD [facility] Start: 2015 SIGMOIDOSCOPY SIGMOIDOSCOPY [facility] Start: 2005 LIPID SCREEN LIPID SCREEN [facility] Start: 1989 Urine microalbumin profile DTAP,TDAP,TD (1 - Tdap) [facility] Start: 1988 HEPATITIS C SCREENING HEPATITIS C SCREENING [facility] Start: 1988 HIV SCREENING HIV SCREENING [facility] Start: 1982 Adult depression screening assessment DEPRESSION SCREENING [facility] Start: 1970 COVID-19 VACCINE (#1) COVID-19 VACCINE (#1) [facility] Start: 1970 HEPATITIS B (1 of 3 - 3-dose series) HEPATITIS B (1 of 3 - 3-dose series) [facility] Patient Education ED TIA: Transi ent Ischemic Attack [facility] Work Phone: Patient referral [facility] Work Phone: Immunizations Immunization Date Immunization Notes Care Provider Fa cility 06-13-2021 tetanus toxoid, redu víctor diphtheria toxoid, and acellular pertussis vaccine, adsorbed; Translations: [Boostrix (Tdap)] JENNYFER CASANOVA [employer] TECHNICIAN-ASSURANCE SOURCING MANAGER [facility] 08-20-2018 influenza virus vacc ine, unspecified formulation JENNYFER CASANOVA [employer] TECHNICIAN-ASSURANCE SOURCING MANAGER [facility] 05-12-2018 tetanus toxoid, redu víctor diphtheria toxoid, and acellular pertussis vaccine, adsorbed JENNYFER CASANOVA [employer]ORAT[employer] TECHNICIAN-[facility] 02-10-2014 pneumococcal polysaccharide vaccine, 23 valent JENNYFER CASANOVA [employer]OR[employer] TECHNICIAN-[facility] Payers Date Payer Category Payer Self-pay 2023 Private Health Insurance [id number] 2022 Private Health Insurance [id number] 2014 Unknown [id number] 1970 Unknown [id number] 2.16.8 [id number] 1970 Unknown [id number] 2.16.8 [id number] 1970 Unknown [id number] 2.16.8 [id number]. 1970 Unknown [id number] 2.16.8 [id number]. 1970 Unknown [id number] 2.16.8 40.1.014453.3.579.2. 1970 Unknown [id number] 2.16.8 40.1.636619.3.579.2. 1970 Unknown [id number] 2.16.8 40.1.980399.3.579.2. 1970 Unknown [id number] 2.16.8 [id number] Unknown [id number] 2.16.8 [id number] 1970 Unknown [id number] 2.16.8 [id number] 1970 Unknown [id number] 2.16.8 [id number] 1970 Unknown [id number] 2.16.8 [id number] Private Health Insurance [employer] [id number] Unknown [id number] 2.16.8 [id number] Social History Date Type Detail Facility Start: 01-23-2020 End: 06-16-2024 Never smoked tobacco (finding) [facility] Start: 1970 Sex Assigned At Male A [facility] Start: 01-19-2021 Tobacco use and exposure Smoke less tobacco non-user [facility] Start: 01-31-2021 Alcohol intake Lifetime non-d clover (finding) [facility] Start: 01-28-2021 History SDOH Alcohol Frequency 1 [facility] Start: 1970 Sex Assigned At Not on file C [facility] Start: 02-09-2024 Tobacco smoking stat [facility] Unknown if ever smoked [facility] Sexual Orientation [facility] Start: 05-07-2019 Sex Male (finding) [facility] Functional Status Date Assessment Result Facility 02-07-2024 Functional Status Up to bathroom [facility] 02-07-2024 Functional Status bilateral knee high applied/on [facility] 02-07-2024 Functional Status Maintained, More than 8 hours [facility] 01-24-2024 Functional Status Sensory Defici ts Hearing deficit, left ear, Hearing deficit, right ear [facility] Mental Status Date Assessment Result Facility 02-09-2024 Cognitive function Level Of Cons ciousness Awake;Alert;Appropriate;Follow s Commands [facility] Work Phone: 02-07-2024 Mental Status Oriented x 4 [facility] Clinical Notes 07-19-2022 to 06-09-2024 Note Date & Type Note Facility 06-09-2024 Note Exam Date Time Procedure Performing Provider Status 06/09/24 8:31 AM Transesophageal Echo cardiogram - CV Auth (Verified) [facility] 04-25-2024 Note* Exam Date Time Procedure Performing Provider Status 03/06/24 7:44 AM Echocardiogram, Adul t with Bubble Study- Auth (Verified) [facility] 04-14-2024 Note. MICRO - Microbiology PROCEDURE: Urine Culture [*1] SOURCE: Urine, Clean Catch BODY SITE: COLLECTED DATE/TIME: 02/21/2024 15:56 EDT RECEIVED DATE/TIME: 02/22/2024 15:33 EDT START DATE/TIME: 02/22/2024 15:34 EDT FREE TEXT SOURCE: FINAL REPORTS Final Report [] Verified Date/Time/Personnel: 02/24/2024 07:47 EDT <10,000 cfu/ml. No Significant growth. Sensitivity not indicated. PRELIMINARY REPORTS Preliminary Report [] Verified Date/Time/Personnel: 02/23/2024 09:59 EDT No growth to date Performing Locations *1: This test was performed at: [facility], [address] [place] [address], [id number] , [facility] ([place])02-09-2024 Discharge summary Author Porfirio Holley [facility] February 09, 2024 1:59pm Note Date/Time February 09, 2024 11: 11am [facility] Medical Records Department [address] [place] [address] Emergency Department Summary 02/09/24 MR#: [id number] Acct: [id number] Name: CASSANDRALACY Rep #:[id number] : 1970 53 From: Porfirio Holley MD PCP: Dr. Bala Wang, DO Status:REG ER Location: ED HPI History of Present Illness Chief Complaint: Neuro S/Sx Informant: patient and spouse/S.O. Narrative Narrative: Patient presents about 1 hour after sudden onset while he was awake this morningof numbness in his right upper extremity and right lower face, facial droop as confirmed by his , and slurred speech. He states that maybe lasted a minutebefore it all went away together. He does not remember feeling any weakness buthe states he did not really try to do anything with his hand before at all resolved. Never had this before. He did not experience a headache or syncope or any other systemic symptoms. He had a right inguinal herniorrhaphy at [facility] 2 days ago. He has been sleeping in a recliner, but otherwise recovering okay without any discharge from underneath of his operative dressings. He is passing flatus no bowel movement yet. Urinating well. states that he had been straight catheterized while there, and subsequently he urinated a small amount of blood with some clots, he is now urinating without hematuria but he states there are some residual small clots that he seems to be urinating out occasionally. [facility] Medical History (Updated 02/09/24 @ 13:[address] Porfirio Holley MD) GERD (gastroesophageal reflux disease) Hyperlipidemia Home Medications ascorbic acid (vitamin C) 250 mg tablet (Vitamin C) 250 mg PO DAILY 02/09/24 [History Last Taken 01/31/24] cholecalciferol (vitamin D3) 50 mcg (2,000 unit) capsule (D3-2000) 2,000 unit PODAILY 02/09/24 [History Last Taken 01/31/24] clopidogrel 75 mg tablet 75 mg PO DAILY 3 weeks #21 tabs 02/09/24 [Rx Last Taken Unknown] ezetimibe 10 mg tablet 10 mg PO DAILY 02/09/24 [History Last Taken 01/31/24] fluticasone 250 mcg-salmeterol 50 mcg/dose blistr powdr for inhalation (Wixela Inhub) 1 inh inhalation DAILY 02/09/24 [History Last Taken 02/09/24] hydrocodone-acetaminophen 5-325mg 5mg-325mg 1 tab PO Q6H PRN pain 02/09/24 [History Last Taken 02/08/24] omeprazole 20 mg capsule,delayed release 20 mg PO DAILY 02/09/24 [History Last Taken 02/08/24] rosuvastatin 10 mg tablet 20 mg (2 x 10 mg) PO DAILY #60 tabs 02/09/24 [Rx Last Taken Unknown] tamsulosin 0.4 mg capsule 0.8 mg PO DAILY 02/09/24 [History Last Taken 02/08/24] Allergy/AdvReac Type Severity Reaction Status Date / Time No Known Allergies Allergy Verified 02/09/24 10:25 Family History no significant family his Surgical History (Updated 02/09/24 @ 11:[address] Porfirio Holley MD) S/P hernia surgery S/P inguinal herniorrhaphy Social History Smoking Status: Never smoker ROS ROS ED Constitutional Constitutional ED: Denies chills or fever(s) Eyes Eyes: Denies change in vision or diplopia ENT ENT ED: Denies rhinorrhea or sore throat Cardiovascular Cardiovascular: Denies chest pain or palpitations Respiratory/Chest Respiratory/Chest: Denies cough or dyspnea Gastrointestinal Gastrointestinal: Denies abdominal pain, diarrhea, nausea or vomiting Genitourinary Genitourinary ED: Denies dysuria or hematuria Musculoskeletal Musculoskeletal: Denies back pain or neck pain Integumentary Denies abscess or rash Neurologic Neurologic: Reports abnormal speech, paresthesias and weakness; Denies headache(s) Psychiatric Psychiatric: Denies anxiety or suicidal thoughts EXAM Physical Exam Const Vital Signs: 02/09/24 10:24 02/09/24 10:57 02/09/24 11:05 Temperature 96.9 F L Temperature Source Temporal Pulse Rate 86 82 Respiratory Rate 16 16 Blood Pressure 164/107 H 147/93 H Blood Pressure Mean 126 111 Pulse Ox 97 98 Oxygen Delivery Method Room Air Room Air Room Air 02/09/24 11:05 02/09/24 10:51 02/09/24 10:55 Temperature Temperature Source Pulse Rate 88 81 82 Respiratory Rate 18 16 18 Blood Pressure 149/96 H 147/93 H Blood Pressure Mean 113 109 Pulse Ox 98 97 97 Oxygen Delivery Method Room Air 02/09/24 11:00 02/09/24 11:05 02/09/24 11:10 Temperature Temperature Source Pulse Rate 85 78 81 Respiratory Rate 17 16 16 Blood Pressure 142/96 H 140/100 H 140/95 H Blood Pressure Mean 108 112 106 Pulse Ox 98 97 97 Oxygen Delivery Method 02/09/24 11:15 02/09/24 11:20 02/09/24 11:25 Temperature Temperature Source Pulse Rate 86 95 Respiratory Rate 21 H 18 Blood Pressure 149/96 H 125/89 H 137/95 H Blood Pressure Mean 111 101 108 Pulse Ox 96 99 Oxygen Delivery Method 02/09/24 11:30 02/09/24 11:35 02/09/24 11:40 Temperature Temperature Source Pulse Rate 84 82 93 Respiratory Rate 21 H 21 H 14 Blood Pressure 145/102 H 139/98 H 143/106 H Blood Pressure Mean 115 110 118 Pulse Ox 97 97 97 Oxygen Delivery Method 02/09/24 11:45 02/09/24 11:50 02/09/24 11:55 Temperature Temperature Source Pulse Rate 77 80 80 Respiratory Rate 16 20 H 20 H Blood Pressure 143/95 H 137/93 H 140/96 H Blood Pressure Mean 109 106 109 Pulse Ox 98 97 97 Oxygen Delivery Method 02/09/24 12:00 02/09/24 12:05 02/09/24 12:10 Temperature Temperature Source Pulse Rate 80 79 86 Respiratory Rate 16 20 H 24 H Blood Pressure 136/95 H 138/100 H 145/110 H Blood Pressure Mean 107 111 123 Pulse Ox 97 97 96 Oxygen Delivery Method 02/09/24 12:25 02/09/24 12:26 02/09/24 12:30 Temperature Temperature Source Pulse Rate 82 83 Respiratory Rate 22 H 17 Blood Pressure 145/90 H 144/90 H Blood Pressure Mean 108 106 Pulse Ox 98 98 Oxygen Delivery Method 02/09/24 12:35 02/09/24 12:40 02/09/24 12:45 Temperature Temperature Source Pulse Rate 78 80 84 Respiratory Rate 18 17 16 Blood Pressure 146/96 H 144/95 H 135/102 H Blood Pressure Mean 110 110 113 Pulse Ox 98 99 99 Oxygen Delivery Method 02/09/24 12:50 02/09/24 12:55 02/09/24 13:00 Temperature Temperature Source Pulse Rate 81 83 82 Respiratory Rate 13 18 14 Blood Pressure 132/101 H 140/93 H 144/99 H Blood Pressure Mean 111 109 113 Pulse Ox 98 98 97 Oxygen Delivery Method Positive well nourished and well developed General Appearance ED: well developed and NAD HEENT Reports moist mucous membranes normocephalic and atraumatic Eyes PERRL and EOMs intact bilaterally Neck full ROM and supple Resp normal respiratory effort and clear to auscultation bilaterally Cardio regular rate, regular rhythm and no murmurs GI non-tender and non-distended Auscultation: normoactive bowel sounds Palpation: soft Back/Spine no CVA tenderness General Back: other FROM Extremity normal to inspection General Extremety ED: Negative for edema, pulses abnormal or tenderness General Extremity: Negative for edema or pulses abnormal Neuro oriented x3, CN's II-XII intact bilaterally and no sensory deficits noted Neuro Narrative: Speech normal. Vwvqtd-it-zfcp and ysni-pr-oxqz normal bilaterally. Sensorium / Orientation: awake and alert Motor Exam: strength 5/5 throughout Psych mental status grossly normal Skin no rashes or lesions noted and no wounds NIHSS NIHSS Initial: 1a Level of Consciousness: 0 1b LOC Questions (Score 2 if aphasic/stupor): 0 1c LOC Commands (Only score 1st attempt): 0 2 Best Gaze (If aphasic, use reflexive mvmts.): 0 3 Visual: 0 4 Facial Palsy: 0 5 Motor Arm Right (UN = amputation/fusion): 0 5 Motor Arm Left: 0 6 Motor Leg Right: 0 6 Motor Leg Left: 0 7 Limb ataxia (Only + if out of proportion): 0 8 Sensory (Aphasia/stupor=0 or 1, coma=2): 0 9 Best Language: 0 10 Dysarthria (mute, coma=2, intubated=UN): 0 11 Extinction and Inattention (only scored if +): 0 Total Score: 0 MDM MDM MDM Narrative Medical decision making narrative: Stroke workup obtained, patient does not need to be a stroke alert since he is asymptomatic and not a thrombolytic candidate given his surgery couple days ago. Basically, his heart rhythm is normal sinus with a normal EKG and troponin, hislabs are normal, CT of the head along with CT angiography of the head and neck images were reviewed by myself as well as the report which I agree with, negative for bleed, negative for acute stenosis or thrombosis. I spoke with theradiologist and specifically, he states that the vessels appear wide open and very normal. He states if this was a TIA it must have involved a small corticalvessel. The patient states he had a little bit of tingling in his lower face after CT but it went away quickly and he had no other symptoms, and reexamination he still has an NIHSS of 0, I suspect this tingling could have been related to contrast infusion head CT. His ABCD2 score is 2, as calculated below since his initial blood pressure was measuring 160/107: ABCD<sup>2</sup> Score for TIA from [facility] on 02/09/2024 All calculations should be rechecked by clinician prior to use RESULT SUMMARY: 2 points Per the validation study, 0-3 points: Low Risk 2-Day Stroke Risk: 1.0% 7-Day Stroke Risk: 1.2% 90-Day Stroke Risk: 3.1% INPUTS: Age >=60 years ?> 0 = No BP >=140/90 mmHg ?> 1 = Yes Clinical features of the TIA ?> 1 = Speech disturbance without weakness Duration of symptoms ?> 0 = <10 minutes History of diabetes ?> 0 = No Also reviewed the patient's chest x-ray, 2 views on my interpretation negative for mediastinal widening or pneumonia. I spoke with stroke neurology concerning this case. Given that we imaged his carotids, he recommends high-dose statin, DAPT with clopidogrel for 21 days and baby aspirin going forward daily during and after that, and echocardiogram can be obtained as an outpatient. He agrees since patient is asymptomatic and unless he develops recurrence, he may be discharged home and have the echocardiogram when he follows up. Patient is definitely amenable to this plan. Discussed at length with family. According to stroke neurology, there is an increased risk of TIAs and strokes after surgery as in this case, but for unknown reasons why. At this time his blood pressure stable 144/99. He is on rosuvastatin 10 mg 3 times a week so we are going to increase that to 20 mg daily in addition to adding aspirin 81 mg and clopidogrel 75 mg for 3 weeks to his regimen. While discussing with family, they also mention that he has been having episodes of chest pain but the patient states this has been for years. It oftentimes occursin his back and radiates into his chest. His cardiac workup is negative right now, this may be esophageal in etiology, advise discussing this with his primarydoctor. Most referring him to neurology to be seen as an outpatient. Lab Data Attestation: I reviewed the patient's lab results. Labs: Laboratory Results - last 24 hr 02/09/24 02/09/24 02/09/24 11:20 11:20 11:55 WBC Cancelled 7.6 Corrected WBC Cancelled RBC Cancelled 4.85 Hgb Cancelled 14.1 Hct Cancelled 42.6 MCV Cancelled 87.8 MCH Cancelled 29.1 MCHC Cancelled 33.1 RDW Std Deviation Cancelled 42.5 RDW Coeff of Omar Cancelled 13.2 Plt Count Cancelled 266 MPV Cancelled 9.7 Immature Gran % (Auto) Cancelled 0.400 Neut % (Auto) Cancelled 69.5 Lymph % (Auto) Cancelled 17.9 L Weld % (Auto) Cancelled 8.9 Eos % (Auto) Cancelled 2.2 Baso % (Auto) Cancelled 1.1 H Absolute Neuts (auto) Cancelled 5.3 Absolute Lymphs (auto) Cancelled 1.36 Total Counted Cancelled Neutrophils % (Manual) Cancelled Band Neutrophils % Cancelled Lymphocytes % (Manual) Cancelled Monocytes % (Manual) Cancelled Eosinophils % (Manual) Cancelled Basophils % (Manual) Cancelled Metamyelocytes % Cancelled Myelocytes % Cancelled Promyelocytes % Cancelled Blast Cells % Cancelled Plasma Cell % (Manual) Cancelled Other Cells % Cancelled Nucleated RBC % Cancelled 0 Nucleated RBCs/100 WBC Cancelled Differential Comment Cancelled Diff Path Review Cancelled Hypersegmented Neuts Cancelled Atypical Lymphocytes Cancelled Reactive Lymphocytes Cancelled Smudge Cells Cancelled Toxic Granulation Cancelled Toxic Vacuolation Cancelled Dohle Bodies Cancelled Nehemiah Rods Cancelled Platelet Estimate Cancelled Plt Morphology Comment Cancelled RBC Morphology Cancelled Cancelled Polychromasia Cancelled Hypochromasia Cancelled Basophilic Stippling Cancelled Anisocytosis Cancelled Microcytosis Cancelled Macrocytosis Cancelled Spherocytes Cancelled Sickle Cells Cancelled Target Cells Cancelled Tear Drop Cells Cancelled Ovalocytes Cancelled Stomatocytes Cancelled Ari[place] Bodies Cancelled Anamoose Cells Cancelled Bite Cells Cancelled Crenated Cell Cancelled Acanthocytes (Spur) Cancelled Rouleaux Cancelled Schistocytes Cancelled PT 13.0 INR 1.0 APTT 24.2 Sodium 139 Potassium 4.5 Chloride 109 H Carbon Dioxide 28.0 Anion Gap 2 L BUN 11 Creatinine 0.99 Estim Creat Clear Calc 90.71 Est GFR (MDRD) Af Amer 101 Est GFR (MDRD) Non-Af 84 BUN/Creatinine Ratio 11.1 Glucose 101 Calcium 9.3 Troponin I High Sens 5 Radiography Diagnostic Testing: Clinical Impression(s) from Imaging Studies Head/Neck CTA 02/09/24 11:06 IMPRESSION: 1. Normal chitina of Alexander without a demonstrated aneurysm or hemodynamically significant stenosis. 2. Normal bilateral cervical carotid and vertebral arteries. N.B. : The above Results were Read Back by Kaden Kingston MD to Porfiiro Holley MD, and understanding confirmed on 02/09/2024 12:49:44 (ET). Electronically Signed: Kaden Kingston MD at 12:51 EDT Reading Location ID and State: [facility] / [place] , Service support , ADDENDUM: 02/09/24 1258 IMPRESSION: 1. Normal chitina of Alexander without a demonstrated aneurysm or hemodynamically significant stenosis. 2. Normal bilateral cervical carotid and vertebral arteries. N.B. : The above Results were Read Back by Kaden Kingston MD to Porfirio Holley MD, and understanding confirmed on 02/09/2024 12:49:44 (ET). Electronically Signed: Kaden Kingston MD at 12:51 EDT Reading Location ID and State: [facility] / [place] , Service support , Chest X-Ray 02/09/24 12:18 IMPRESSION: 1. Linear atelectasis is present in the bilateral lower lobes. No visualized consolidation or pulmonary edema or pleural effusion. Electronically Signed: Kaden Kingston MD at 13:38 EDT , Rhythm Strip Rhythm Strip: Sinus Rhythm Rate: 80 Ectopy: None EKG Initial EKG: Attestation: I personally reviewed and interpreted this EKG as follows: Interpretation: Sinus Rhythm and No Acute Injury Pattern Comments: nml EKG Management Discussion w/another healthcare provider: Bookmaker'S Clerk (Dr. Mcdonough, stroke neurology) and Radiologist Stroke Documentation Questions Stroke Team Activated: No (Symptoms resolved) Was Patient considered for Endovascular Intervention?: No-CTA negative, determined not to be an endovascular candidate IV Thrombolytic Administered: No (Symptoms resolved and recent surgery) Discharge Plan Triage Chief Complaint: Neuro S/Sx ED Provider: Porfirio Holley Dx/Rx/DC Orders Clinical Impression: Brain TIA Instructions: ED TIA: Transient Ischemic Attack Prescriptions: New clopidogrel 75 mg tablet 75 mg PO DAILY 21 Days Qty: 21 0RF Continued hydrocodone-acetaminophen 5-325 mg tablet 1 tab PO Q6H PRN (Reason: pain) ezetimibe 10 mg tablet 10 mg PO DAILY Patient Comments: MED STOPPED ON 01/31/24 FOR SURGERY tamsulosin 0.4 mg capsule 0.8 mg PO DAILY Patient Comments: pt took 1 capsule night, and 1 capsule sunday morning. no longer taking fluticasone propion-salmeterol [Wixela Inhub] 250-50 mcg/dose blister with device 1 inh inhalation DAILY omeprazole 20 mg capsule,delayed release(DR/EC) 20 mg PO DAILY ascorbic acid (vitamin C) [Vitamin C] 250 mg tablet 250 mg PO DAILY cholecalciferol (vitamin D3) [D3-2000] 50 mcg (2,000 unit) capsule 2,000 unit PO DAILY Changed rosuvastatin 10 mg tablet 20 mg PO DAILY Qty: 60 0RF Patient Comments: MED STOPPED ON 01/31/24 FOR SURGERY Primary Care Provider: Bala Wang Referrals: Gen Larose MD [Non-Staff -Ordering Privileges] - As soon as possible (Neurology) Bala Wang, [Primary Care Provider] - As soon as possible Activity Restrictions/Additional Instructions: To the medication list attached, add aspirin 81 mg (baby aspirin) once daily. In addition to your doctor, you may also follow-up with our neurologist whose information is attached, or if you wish you may follow-up with a neurology practice elsewhere. Disposition Disposition: Home, Self Care What to do if you have Problems For any increased pain, shortness of breath, bleeding, nausea or vomiting, chestpain, or any unexpected problems, contact your Primary Care Provider. Call [facility] ([phone]) or report to the closest Emergency Room. Call 911 if necessary. 02/09/24 3038 <Electronically signed by Porfirio Holley MD> Cosigner Signature (if applicable): CC: Dr. Gen Larose MD; Dr. Bala Wang, DO ~ Signed [facility] Work Phone: [phone] Hospital Discharge instructions Patient Education 02/07/2024 10:27:27 Nausea and Vomiting, Adult Nausea and Vomiting, Adult Nausea is the feeling that you have an upset stomach or that you are about to vomit. Vomiting is when stomach contents are thrown up and out of the mouth as a result of nausea. Vomiting can make you feel weak and cause you to become dehydrated. Dehydration can make you feel tired and thirsty, cause you to have a dry mouth, and decrease how often you urinate. Older adults and people with other diseases or a weak disease-fighting system (immune system) are at higher risk for dehydration. It is important to treat your nausea and vomiting as told by your health care provider. Follow these instructions at home: Watch your symptoms for any changes. Tell your health care provider about them. Follow these instructions to care for yourself at home. Eating and drinking Take an oral rehydration solution (ORS). This is a drink that is sold at pharmacies and retail stores. Drink clear fluids slowly and in small amounts as you are able. Clear fluids include water, ice chips, low-calorie sports drinks, and fruit juice that has water added (diluted fruit juice). Eat bland, wsra-fw-siuadr foods in small amounts as you are able. These foods include bananas, applesauce, rice, lean meats, toast, and crackers. Avoid fluids that contain a lot of sugar or caffeine, such as energy drinks, sports drinks, and soda. Avoid alcohol. Avoid spicy or fatty foods. General instructions Take ukru-rqy-aqreikt and prescription medicines only as told by your health care provider. Drink enough fluid to keep your urine pale yellow. Wash your hands often using soap and water. If soap and water are not available, use hand quality review trainer. Make sure that all people in your household wash their hands well and often. Rest at home while you recover. Watch your condition for any changes. Breathe slowly and deeply when you feel nauseated. Keep all follow-up visits as told by your health care provider. This is important. Contact a health care provider if: Your symptoms get worse. You have new symptoms. You have a fever. You cannot drink fluids without vomiting. Your nausea does not go away after 2 days. You feel light-headed or dizzy. You have a headache. You have muscle cramps. You have a rash. You have pain while urinating. Get help right away if: You have pain in your chest, neck, arm, or jaw. You feel extremely weak or you faint. You have persistent vomiting. You have vomit that is bright red or looks like black coffee grounds. You have bloody or black stools or stools that look like tar. You have a severe headache, a stiff neck, or both. You have severe pain, cramping, or bloating in your abdomen. You have difficulty breathing, or you are breathing very quickly. Your heart is beating very quickly. Your skin feels cold and clammy. You feel confused. You have signs of dehydration, such as: ?Dark urine, very little urine, or no urine. ?Cracked lips. ?Dry mouth. ?Sunken eyes. ?Sleepiness. ?Weakness. These symptoms may represent a serious problem that is an emergency. Do not wait to see if the symptoms will go away. Get medical help right away. Call your local emergency services (911 in the [place] Do not drive yourself to the hospital. Summary Nausea is the feeling that you have an upset stomach or that you are about to vomit. As nausea getsworse, it can lead to vomiting. Vomiting can make you feel weak and cause you to become dehydrated. Follow instructions from your health care provider about eating and drinking to prevent dehydration. Take jfof-aue-altaqcl and prescription medicines only as told by your health care provider. Contact your health care provider if your symptoms get worse, or you have new symptoms. Keep all follow-up visits as told by your health care provider. This is important. This information is not intended to replace advice given to you by your health care provider. Make sure you discuss any questions you have with your health care provider. Document Released: 10/29/2006 Document Revised: 02/20/2020 Document Reviewed: 04/08/2019 [employer] Patient Education 2020 [employer]. 02/07/2024 10:27:20 General Anesthesia, Adult, Care After General Anesthesia, Adult, Care After This sheet gives you information about how to care for yourself after your procedure. Your health care provider may also give you more specific instructions. If you have problems or questions, contact your health care provider. What can I expect after the procedure? After the procedure, the following side effects are common: Pain or discomfort at the IV site. Nausea. Vomiting. Sore throat. Trouble concentrating. Feeling cold or chills. Weak or tired. Sleepiness and fatigue. Soreness and body aches. These side effects can affect parts of the body that were not involved in surgery. Follow these instructions at home: For at least 24 hours after the procedure: Have a responsible adult stay with you. It is important to have someone help care for you until youare awake and alert. Rest as needed. Do not: ?Participate in activities in which you could fall or become injured. ?Drive. ?Use heavy machinery. ?Drink alcohol. ?Take sleeping pills or medicines that cause drowsiness. ?Make important decisions or sign legal documents. ?Take care of children on your own. Eating and drinking Follow any instructions from your health care provider about eating or drinking restrictions. When you feel hungry, start by eating small amounts of foods that are soft and easy to digest (bland), such as toast. Gradually return to your regular diet. Drink enough fluid to keep your urine pale yellow. If you vomit, rehydrate by drinking water, juice, or clear broth. General instructions If you have sleep apnea, surgery and certain medicines can increase your risk for breathing problems. Follow instructions from your health care provider about wearing your sleep device: ?Anytime you are sleeping, including during daytime naps. ?While taking prescription pain medicines, sleeping medicines, or medicines that make you drowsy. Return to your normal activities as told by your health care provider. Ask your health care provider what activities are safe for you. Take uwiq-keq-xgvzpis and prescription medicines only as told by your health care provider. If you smoke, do not smoke without supervision. Keep all follow-up visits as told by your health care provider. This is important. Contact a health care provider if: You have nausea or vomiting that does not get better with medicine. You cannot eat or drink without vomiting. You have pain that does not get better with medicine. You are unable to pass urine. You develop a skin rash. You have a fever. You have redness around your IV site that gets worse. Get help right away if: You have difficulty breathing. You have chest pain. You have blood in your urine or stool, or you vomit blood. Summary After the procedure, it is common to have a sore throat or nausea. It is also common to feel tired. Have a responsible adult stay with you for the first 24 hours after general anesthesia. It is important to have someone help care for you until you are awake and alert. When you feel hungry, start by eating small amounts of foods that are soft and easy to digest (bland), such as toast. Gradually return to your regular diet. Drink enough fluid to keep your urine pale yellow. Return to your normal activities as told by your health care provider. Ask your health care provider what activities are safe for you. This information is not intended to replace advice given to you by your health care provider. Make sure you discuss any questions you have with your health care provider. Document Released: 02/04/2002 Document Revised: 11/01/2018 Document Reviewed: 06/14/2018 [employer] Patient Education 2020 [employer]. 02/07/2024 10:26:55 Laparoscopic Inguinal Hernia Repair, Adult, Care After Laparoscopic Inguinal Hernia Repair, Adult, Care After This sheet gives you information about how to care for yourself after your procedure. Your health care provider may also give you more specific instructions. If you have problems or questions, contact your health care provider. What can I expect after the procedure? After the procedure, it is common to have: Pain. Swelling and bruising around the incision area. Scrotal swelling, in men. Some fluid or blood draining from your incisions. Follow these instructions at home: Incision care Follow instructions from your health care provider about how to take care of your incisions. Make sure you: ?Wash your hands with soap and water before you change your bandage (dressing). If soap and water are not available, use hand quality review trainer. ?Change your dressing as told by your health care provider. ?Leave stitches (sutures), skin glue, or adhesive strips in place. These skin closures may need to stay in place for 2 weeks or longer. If adhesive strip edges start to loosen and curl up, you may trim the loose edges. Do not remove adhesive strips completely unless your health care provider tells you to do that. Check your incision area every day for signs of infection. Check for: ?More redness, swelling, or pain. ?More fluid or blood. ?Warmth. ?Pus or a bad smell. Wear loose, soft clothing while your incisions heal. Driving Do not drive or use heavy machinery while taking prescription pain medicine. Do not drive for 24 hours if you were given a medicine to help you relax (sedative) during your procedure. Activity Do not lift anything that is heavier than 10 lb (4.5 kg), or the limit that you are told, until your health care provider says that it is safe. Ask your health care provider what activities are safe for you. A lot of activity during the first week after surgery can increase pain and swelling. For 1 week after your procedure: ?Avoid activities that take a lot of effort, such as exercise or sports. ?You may walk and climb stairs as needed for daily activity, but avoid long walks or climbing stairs for exercise. Managing pain and swelling Put ice on painful or swollen areas: ?Put ice in a plastic bag. ?Place a towel between your skin and the bag. ?Leave the ice on for 20 minutes, 2 3 times a day. General instructions Do not take baths, swim, or use a hot tub until your health care provider approves. Ask your healthcare provider if you may take showers. You may only be allowed to take sponge baths. Take nqpw-rye-lvpdqxs and prescription medicines only as told by your health care provider. To prevent or treat constipation while you are taking prescription pain medicine, your health care provider may recommend that you: ?Drink enough fluid to keep your urine pale yellow. ?Take uryx-wcy-mgxssta or prescription medicines. ?Eat foods that are high in fiber, such as fresh fruits and vegetables, whole grains, and beans. ?Limit foods that are high in fat and processed sugars, such as fried and sweet foods. Do not use any products that contain nicotine or tobacco, such as cigarettes and e-cigarettes. If you need help quitting, ask your health care provider. Drink enough fluid to keep your urine pale yellow. Keep all follow-up visits as told by your health care provider. This is important. Contact a health care provider if: You have more redness, swelling, or pain around your incisions or your groin area. You have more swelling in your scrotum. You have more fluid or blood coming from your incisions. Your incisions feel warm to the touch. You have severe pain and medicines do not help. You have abdominal pain or swelling. You cannot eat or drink without vomiting. You cannot urinate or pass a bowel movement. You faint. You feel dizzy. You have nausea and vomiting. You have a fever. Get help right away if: You have pus or a bad smell coming from your incisions. You have redness, warmth, or pain in your leg. You have chest pain. You have problems breathing. Summary Pain, swelling, and bruising are common after the procedure. Check your incision area every day for signs of infection, such as more redness, swelling, or pain. Put ice on painful or swollen areas for 20 minutes, 2 3 times a day. This information is not intended to replace advice given to you by your health care provider. Make sure you discuss any questions you have with your health care provider. Document Released: 02/07/2018 Document Revised: 04/07/2020 Document Reviewed: 02/07/2018 [employer] Patient Education 2020 [employer]. Follow Up Care 01/01/2024 08:58:43 With:ANAHI PLEITEZ Address: [address] [place] [address] [phone] Business (1) When: Unknown [facility] 03-28-2024 Summary of episode note Discharge Instructions Thank you for allowing [facility] to assist you with your healthcare needs. The following is importantdischarge information regarding your hospital visit. Your Care Team BALA WANG DO Your Diagnosis Acute post-operative pain What to do next Scheduled Follow-Up Appointments Appointment Type When With Where Contact [facility] Annual 12/12/2024 04:30 PM BALA LE DO [facility] [address] [phone] Follow Up Appointments Follow Up with ANAHI PLEITEZ When Where: [address] [place] [phone] Business (1) The Following Activity and Diet Have Been Ordered for You Discharge Activity - Ordered -- Sexual [place] Restricted No bending, twisting, crawling or squatt, No shower or tub bath for 2 days; no driving for 5 days, no lifting >15 lbs, 02/07/24 10:04:00 EDT Discharge Diet - Ordered -- Follow the post-operative/post-procedure diet instructions provided by your physician's office.,02/07/24 10:04:00 EDT The Following Equipment Has Been Ordered for You Discharge Home Equipment Discharge Wound Care - Ordered -- Dressing Type: Dry sterile drsg, Remove dressing in two (2) days. Leave steristrips on until they fall off, 02/07/24 10:04:00 EDT Someone Will Contact You Regarding These Home Health Referrals No home referrals have been ordered for you. No one will call you. Allergies No Known Medication Allergies Medications Please ask your primary doctor or pharmacist before taking any other medication not listed, including over the counter drugs, herbal medications, vitamins and or supplements as they may interact withyour home medications. What How Much When Why Instructions Last Dose New acetaminophen-hydrocodone ([place] 325- 5 mg oral tablet) 1 tab(s) by mouth Every 4 hours as needed for Pain, scale 1-6 Acute post-operative pain Duration: 5 Days Pickup at [facility]/pharmacy #[id number] Unchanged albuterol (Ventolin HFA MDI (90 mcg/ inh) inhalation aerosol) 2 puff(s) by inhalation Every 4 hours as needed for as needed for wheezing Asthma Duration: 30 Days Unchanged ascorbic acid (Vitamin C) 500 Milligram by mouth Once a day Unchanged cholecalciferol (Vitamin D3) 400 unit(s) by mouth Every day Unchanged ezetimibe (ezetimibe 10 mg oral tablet) 1 tab(s) by mouth Once a day Mixed hyperlipidemia Duration: 90 Days Unchanged fexofenadine (fexofenadine 180 mg oral tablet) 1 tab(s) by mouth Once a day Duration: 90 Days Unchanged fluticasone-salmeterol (Wixela Inhub 250 mcg-50 mcg inhalation powder) 1 puff by inhalation Two (2) times a day Unchanged Misc Medication (Quercetin) 1 tab by mouth Every day respiratory health Unchanged omeprazole (omeprazole 20 mg oral delayed release capsule) 1 cap by mouth Once a day Unchanged rosuvastatin (rosuvastatin 10 mg oral tablet) 1 tab(s) by mouth Sunday / Sunday / Sunday Pharmacy Information [facility]/pharmacy #[id number]: [address], [place] [phone] Please take this list to your next doctor s visit. Bring all medications you take, including over the counter medications, herbals and other supplements with you to your doctor s visit. Patients and families are reminded to discard old lists and to update any records with all medication providers or retail pharmacies. Medication Leaflets bupivacaine liposome (bue PIV a doe LYE cayla some) Exparel What is the most important information I should know about bupivacaine liposome? You may still feel numb or be unable to move the numbed area for up to 5 days after you are treatedwith bupivacaine liposome. What is bupivacaine liposome? Bupivacaine is an anesthetic (numbing medicine) that blocks nerve impulses in your body. Bupivacaine liposome is used as a local (in only one area) anesthetic to numb an area of your body for a minor surgery such as bunion removal or hemorrhoid surgery. Bupivacine liposome is also used as a nerve block after surgery on your shoulder or upper arm, to provide pain relief to the area. Bupivacaine may also be used for purposes not listed in this medication guide. What should I discuss with my healthcare provider before receiving bupivacaine liposome? You should not be treated with bupivacaine if you are allergic to it. Tell your doctor if you have ever had: an allergic reaction to any type of numbing medicine; liver disease; kidney disease; heart disease; a heart rhythm disorder; or seizures. It is not known whether this medicine will harm an unborn baby. Tell your doctor if you are . It may not be safe to breast-feed a baby while you are using this medicine. Ask your doctor about any risks. How is bupivacaine liposome given? Bupivacaine is given as an injection placed into an area near your surgical incision. You will receive this injection in a hospital or surgical setting. Bupivacaine liposome can have long-lasting or delayed effects. For at least 4 days (96 hours) afteryour surgery, tell any doctor or dentist who treats you that you recently received a bupivacaine liposome injection. Call your doctor if you have joint pain or stiffness, or weakness in any part of your body that occurs after your surgery, even months later. What happens if I miss a dose? Since bupivacaine liposome is used as a single dose, it does not have a daily dosing schedule. What happens if I overdose? Since this medication is given by a healthcare professional in a medical setting, an overdose is unlikely to occur. What should I avoid after receiving bupivacaine liposome? For at least 4 days (96 hours) after surgery, avoid using any pain or numbing medicines that contain lidocaine. This includes skin patches, sprays, creams, ointments, or gels applied to the skin. Follow your doctor's instructions. What are the possible side effects of bupivacaine liposome? Get emergency medical help if you have signs of an allergic reaction: hives, red rash, itching; sneezing, difficulty breathing; severe dizziness, vomiting; swelling of your face, lips, tongue, or throat. You will be watched closely after receiving bupivacaine liposome, to make sure you do not have a reaction to the medicine. Tell your caregivers at once if you have any of these signs of a serious side effect: ringing in your ears; drowsiness, feeling restless or anxious; feeling like you might pass out; speech or vision problems, a metallic taste in your mouth; numbness or tingling around your mouth; fast or slow heart rate, feeling short of breath, feeling unusually hot or cold; tremors, twitching, mood changes; ongoing numbness, weakness, or loss of movement where the medicine was injected; or joint pain or stiffness, or weakness in any part of your body for months after your surgery. You may still feel numb or be unable to move the numbed area for up to 5 days after you are treatedwith bupivacaine liposome. Common side effects include: nausea, vomiting; constipation; or fever. This is not a complete list of side effects and others may occur. Call your doctor for medical advice about side effects. You may report side effects to FDA at 9-486-WFS-5593. What other drugs will affect bupivacaine liposome? Other drugs may affect bupivacaine liposome, including prescription and gapn-iso-unsgzoh medicines,vitamins, and herbal products. Tell your doctor about all your current medicines and any medicine you start or stop using. Where can I get more information? Your doctor or pharmacist can provide more information about bupivacaine liposome. Remember, keep this and all other medicines out of the reach of children, never share your medicines with others, and use this medication only for the indication prescribed. Every effort has been made to ensure that the information provided by [employer] is accurate, up-to-date, and complete, but no guarantee is made to that effect. Drug information contained herein may be time sensitive. [employer] information has been compiled for use by healthcare practitioners and consumers in the [place] and therefore [employer] does not warrant that uses outside of the [place] are appropriate, unless specifically indicated otherwise. [employer] drug information does not endorse drugs, diagnose patients or recommend therapy. [employer] drug information isan informational resource designed to assist licensed healthcare practitioners in caring for their p atients and/or to serve consumers viewing this service as a supplement to, and not a substitute for, the expertise, skill, knowledge and judgment of healthcare practitioners. The absence of a warningfor a given drug or drug combination in no way should be construed to indicate that the drug or drug combination is safe, effective or appropriate for any given patient. [employer] does not assume any responsibility for any aspect of healthcare administered with the aid of information [employer] provides. The information contained herein is not intended to cover all possible uses, directions, precautions, warnings, drug interactions, allergic reactions, or adverse effects. If you have questions about the drugs you are taking, check with your doctor, nurse or pharmacist. Copyright 9960-5964 [employer] Version: 4.01. Revision Date: 03/04/2018. Education Materials Nausea and Vomiting, Adult Nausea is the feeling that you have an upset stomach or that you are about to vomit. Vomiting is when stomach contents are thrown up and out of the mouth as a result of nausea. Vomiting can make you feel weak and cause you to become dehydrated. Dehydration can make you feel tired and thirsty, cause you to have a dry mouth, and decrease how often you urinate. Older adults and people with other diseases or a weak disease-fighting system (immune system) are at higher risk for dehydration. It is important to treat your nausea and vomiting as told by your health care provider. Follow these instructions at home: Watch your symptoms for any changes. Tell your health care provider about them. Follow these instructions to care for yourself at home. Eating and drinking Take an oral rehydration solution (ORS). This is a drink that is sold at pharmacies and retail stores. Drink clear fluids slowly and in small amounts as you are able. Clear fluids include water, ice chips, low-calorie sports drinks, and fruit juice that has water added (diluted fruit juice). Eat bland, cmcf-to-yzgagu foods in small amounts as you are able. These foods include bananas, applesauce, rice, lean meats, toast, and crackers. Avoid fluids that contain a lot of sugar or caffeine, such as energy drinks, sports drinks, and soda. Avoid alcohol. Avoid spicy or fatty foods. General instructions Take updd-dzc-mwxjiwx and prescription medicines only as told by your health care provider. Drink enough fluid to keep your urine pale yellow. Wash your hands often using soap and water. If soap and water are not available, use hand quality review trainer. Make sure that all people in your household wash their hands well and often. Rest at home while you recover. Watch your condition for any changes. Breathe slowly and deeply when you feel nauseated. Keep all follow-up visits as told by your health care provider. This is important. Contact a health care provider if: Your symptoms get worse. You have new symptoms. You have a fever. You cannot drink fluids without vomiting. Your nausea does not go away after 2 days. You feel light-headed or dizzy. You have a headache. You have muscle cramps. You have a rash. You have pain while urinating. Get help right away if: You have pain in your chest, neck, arm, or jaw. You feel extremely weak or you faint. You have persistent vomiting. You have vomit that is bright red or looks like black coffee grounds. You have bloody or black stools or stools that look like tar. You have a severe headache, a stiff neck, or both. You have severe pain, cramping, or bloating in your abdomen. You have difficulty breathing, or you are breathing very quickly. Your heart is beating very quickly. Your skin feels cold and clammy. You feel confused. You have signs of dehydration, such as: ? Dark urine, very little urine, or no urine. ? Cracked lips. ? Dry mouth. ? Sunken eyes. ? Sleepiness. ? Weakness. These symptoms may represent a serious problem that is an emergency. Do not wait to see if the symptoms will go away. Get medical help right away. Call your local emergency services (911 in the [place] Do not drive yourself to the hospital. Summary Nausea is the feeling that you have an upset stomach or that you are about to vomit. As nausea getsworse, it can lead to vomiting. Vomiting can make you feel weak and cause you to become dehydrated. Follow instructions from your health care provider about eating and drinking to prevent dehydration. Take jfhi-lfd-vkbizjk and prescription medicines only as told by your health care provider. Contact your health care provider if your symptoms get worse, or you have new symptoms. Keep all follow-up visits as told by your health care provider. This is important. This information is not intended to replace advice given to you by your health care provider. Make sure you discuss any questions you have with your health care provider. Document Released: 10/29/2006 Document Revised: 02/20/2020 Document Reviewed: 04/08/2019 [employer] Patient Education 2020 [employer]. General Anesthesia, Adult, Care After This sheet gives you information about how to care for yourself after your procedure. Your health care provider may also give you more specific instructions. If you have problems or questions, contact your health care provider. What can I expect after the procedure? After the procedure, the following side effects are common: Pain or discomfort at the IV site. Nausea. Vomiting. Sore throat. Trouble concentrating. Feeling cold or chills. Weak or tired. Sleepiness and fatigue. Soreness and body aches. These side effects can affect parts of the body that were not involved in surgery. Follow these instructions at home: For at least 24 hours after the procedure: Have a responsible adult stay with you. It is important to have someone help care for you until youare awake and alert. Rest as needed. Do not: ? Participate in activities in which you could fall or become injured. ? Drive. ? Use heavy machinery. ? Drink alcohol. ? Take sleeping pills or medicines that cause drowsiness. ? Make important decisions or sign legal documents. ? Take care of children on your own. Eating and drinking Follow any instructions from your health care provider about eating or drinking restrictions. When you feel hungry, start by eating small amounts of foods that are soft and easy to digest (bland), such as toast. Gradually return to your regular diet. Drink enough fluid to keep your urine pale yellow. If you vomit, rehydrate by drinking water, juice, or clear broth. General instructions If you have sleep apnea, surgery and certain medicines can increase your risk for breathing problems. Follow instructions from your health care provider about wearing your sleep device: ? Anytime you are sleeping, including during daytime naps. ? While taking prescription pain medicines, sleeping medicines, or medicines that make you drowsy. Return to your normal activities as told by your health care provider. Ask your health care provider what activities are safe for you. Take vwpo-xbk-cbgnttw and prescription medicines only as told by your health care provider. If you smoke, do not smoke without supervision. Keep all follow-up visits as told by your health care provider. This is important. Contact a health care provider if: You have nausea or vomiting that does not get better with medicine. You cannot eat or drink without vomiting. You have pain that does not get better with medicine. You are unable to pass urine. You develop a skin rash. You have a fever. You have redness around your IV site that gets worse. Get help right away if: You have difficulty breathing. You have chest pain. You have blood in your urine or stool, or you vomit blood. Summary After the procedure, it is common to have a sore throat or nausea. It is also common to feel tired. Have a responsible adult stay with you for the first 24 hours after general anesthesia. It is important to have someone help care for you until you are awake and alert. When you feel hungry, start by eating small amounts of foods that are soft and easy to digest (bland), such as toast. Gradually return to your regular diet. Drink enough fluid to keep your urine pale yellow. Return to your normal activities as told by your health care provider. Ask your health care provider what activities are safe for you. This information is not intended to replace advice given to you by your health care provider. Make sure you discuss any questions you have with your health care provider. Document Released: 02/04/2002 Document Revised: 11/01/2018 Document Reviewed: 06/14/2018 [employer] Patient Education 2020 [employer] Laparoscopic Inguinal Hernia Repair, Adult, Care After This sheet gives you information about how to care for yourself after your procedure. Your health care provider may also give you more specific instructions. If you have problems or questions, contact your health care provider. What can I expect after the procedure? After the procedure, it is common to have: Pain. Swelling and bruising around the incision area. Scrotal swelling, in men. Some fluid or blood draining from your incisions. Follow these instructions at home: Incision care Follow instructions from your health care provider about how to take care of your incisions. Make sure you: ? Wash your hands with soap and water before you change your bandage (dressing). If soap and water are not available, use hand quality review trainer. ? Change your dressing as told by your health care provider. ? Leave stitches (sutures), skin glue, or adhesive strips in place. These skin closures may need to stay in place for 2 weeks or longer. If adhesive strip edges start to loosen and curl up, you may trim the loose edges. Do not remove adhesive strips completely unless your health care provider tells you to do that. Check your incision area every day for signs of infection. Check for: ? More redness, swelling, or pain. ? More fluid or blood. ? Warmth. ? Pus or a bad smell. Wear loose, soft clothing while your incisions heal. Driving Do not drive or use heavy machinery while taking prescription pain medicine. Do not drive for 24 hours if you were given a medicine to help you relax (sedative) during your procedure. Activity Do not lift anything that is heavier than 10 lb (4.5 kg), or the limit that you are told, until your health care provider says that it is safe. Ask your health care provider what activities are safe for you. A lot of activity during the first week after surgery can increase pain and swelling. For 1 week after your procedure: ? Avoid activities that take a lot of effort, such as exercise or sports. ? You may walk and climb stairs as needed for daily activity, but avoid long walks or climbing stairsfor exercise. Managing pain and swelling Put ice on painful or swollen areas: ? Put ice in a plastic bag. ? Place a towel between your skin and the bag. ? Leave the ice on for 20 minutes, 2 3 times a day. General instructions Do not take baths, swim, or use a hot tub until your health care provider approves. Ask your healthcare provider if you may take showers. You may only be allowed to take sponge baths. Take vajz-iio-qfcyctc and prescription medicines only as told by your health care provider. To prevent or treat constipation while you are taking prescription pain medicine, your health care provider may recommend that you: ? Drink enough fluid to keep your urine pale yellow. ? Take xsdq-blk-qpwdink or prescription medicines. ? Eat foods that are high in fiber, such as fresh fruits and vegetables, whole grains, and beans. ? Limit foods that are high in fat and processed sugars, such as fried and sweet foods. Do not use any products that contain nicotine or tobacco, such as cigarettes and e-cigarettes. If you need help quitting, ask your health care provider. Drink enough fluid to keep your urine pale yellow. Keep all follow-up visits as told by your health care provider. This is important. Contact a health care provider if: You have more redness, swelling, or pain around your incisions or your groin area. You have more swelling in your scrotum. You have more fluid or blood coming from your incisions. Your incisions feel warm to the touch. You have severe pain and medicines do not help. You have abdominal pain or swelling. You cannot eat or drink without vomiting. You cannot urinate or pass a bowel movement. You faint. You feel dizzy. You have nausea and vomiting. You have a fever. Get help right away if: You have pus or a bad smell coming from your incisions. You have redness, warmth, or pain in your leg. You have chest pain. You have problems breathing. Summary Pain, swelling, and bruising are common after the procedure. Check your incision area every day for signs of infection, such as more redness, swelling, or pain. Put ice on painful or swollen areas for 20 minutes, 2 3 times a day. This information is not intended to replace advice given to you by your health care provider. Make sure you discuss any questions you have with your health care provider. Document Released: 02/07/2018 Document Revised: 04/07/2020 Document Reviewed: 02/07/2018 Elsevier Patient Education 2020 [employer] Additional Information VACCINATE! IT SAVES LIVES! Members of the community who have not yet received the COVID-19 vaccine and would like to receive it can visit one of [facility] vaccine clinics. There are many vaccine clinic locations within the [facility]. For locations and available times, please visit [email or web address]/. It is important to note that some COVID mobile vaccine clinics are held outdoors and may be canceled in rainy or stormy conditions. To learn more about pediatric vaccinations (ages 5-11), we invite you to visit the [facility] webpage. [email or web address]/[email or web address] [email or web address] learn more about the COVID-19 vaccine, we invite you to visit the CDC website for a list of frequently asked questions.https://www.cdc.gov/coronavirus/2019-ncov/vaccines/faq.html [employer] Patient Portal Access Instructions: Stay connected with your healthcare team and access your personal medical information anytime with the [employer] Patient Portal. Please follow the directions below to create your [employer] account: 1.Access the email account you provided upon registration to the hospital/physician office.2.Look for an invitation email from [facility].3.Open the email and access the invitation link: AcceptInvitation to [employer].4.Fill in the required orta to create your account. To access your account, visit [employer]. Click the blue button labeled Access Patient Portal and then log in with the username and password that you created in the steps above. You will be able to view your test results, lab results, a summary of your visits, upcoming appointments and more. There is also a convenient messaging option where you can send secure messages to your p rovider. In addition, you will have the ability to download any documents or summaries to your computer and/or send the information securely to a physician. Remember that your healthcare information is confidential, so carefully consider who you will allowto register on the [employer] Patient Portal for access to your information. You can also access the [employer] [facility] Patient Portal on the [facility] vikki. Simply click on Patient Portal and then log into your account. If you would like to receive a full copy of your medical records, please contact the [facility] Medical Records Department by calling [phone], Sunday through Sunday between 8 a.m. and 4:30 p.m. HOW TO SAFELY DISPOSE OF PRESCRIPTION MEDICATIONS Please use one of the following methods to safely dispose of your unused medications. 1.Use a drug disposal kit: the drug disposal pouch allows you to safely discard your old and unuseddrugs. Ask your nurse to give you one when you are discharged.2.Visit a local take-back location: Many local pharmacies and police departments have programs that collect old and unwanted prescriptiondrugs. Call your local pharmacy or go to http://Leapset.TapTrak/2G0Vd0k to find one close to you.3.Make use of household items: Use cat litter or old coffee grounds to dispose medications if other options arenot available. Mix your drugs with these household products, seal them in an airtight container andthrow it into the garbage. Call [facility]: [phone] to be sure your drugs can be disposed of in this way. Some medicines may require a different approach.4.Never flush your medications down the toilet. IF YOU HAVE BEEN PRESCRIBED AN OPIOID FOR PAIN If you have been prescribed an opioid (such as hydrocodone, oxycodone or morphine), it is critical to understand the possible side effects and risks of opioid pain medications. Even when taken as directed, opioids can have several side effects including: Tolerance, meaning you might need to take more of a medication for the same pain relief. Nausea, vomiting and/or constipation. Sleepiness, dizziness, dry mouth, confusion, depression or itching. Physical dependence, meaning you have withdrawal symptoms when a medication is stopped, can develop within a few days. KNOW YOUR RESPONSIBILITIES It is important to know exactly how much and how often to take the opioid pain medications you are prescribed. Never take opioids in higher amounts or more often than prescribed. Do not combine opioids with alcohol or other drugs that cause drowsiness, such as benzodiazepines, also known as benzos, including diazepam and alprazolam, muscle relaxants or sleep aids. Never sell or share prescription opioids. This is illegal. Store opioids in a secure place and out of reach of others (including children, family, friends and visitors). The last page of this document has been signed and retained as a CHART COPY. Signatures Patient Education Materials Nausea and Vomiting, Adult General Anesthesia, Adult, Care After Laparoscopic Inguinal Hernia Repair, Adult, Care After Medication Leaflets [employer]arel My discharge plan and instructions have been reviewed and explained to me and I,SUNDAY, TOMI understand my current condition and have read and understand these discharge instructions. I havereceived a written copy of the plan/instructions. If I have questions, I am aware that I should contact my doctor. 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 Postanesthesia assessment Vitals: Vital signs from flowsheet : Vital Signs 02/07/2024 10:10 EDT Heart Rate Monitored 88 bpm Respiratory Rate 12 br/min LOW Systolic Blood Pressure Non-Invasive 127 mmHg Diastolic Blood Pressure Non-Invasive 94 mmHg HI 02/07/2024 10:06 EDT Temperature Temporal Artery 36.1 DegC Heart Rate Monitored 88 bpm Respiratory Rate 10 br/min Systolic Blood Pressure Non-Invasive 120 mmHg Diastolic Blood Pressure Non-Invasive 77 mmHg 02/07/2024 10:05 EDT Respiratory Rate - Anes 0 br/min br/min 02/07/2024 10:00 EDT Temperature (Route Not Specified) 36 DegC DegC Heart Rate Monitored 78 bpm bpm Respiratory Rate - Anes 9 br/min br/min 02/07/2024 9:55 EDT Heart Rate Monitored 74 bpm bpm Respiratory Rate - Anes 4 br/min br/min Systolic Blood Pressure Non-Invasive 82 mmHg mmHg Diastolic Blood Pressure Non-Invasive 59 mmHg mmHg 02/07/2024 9:50 EDT Heart Rate Monitored 72 bpm bpm Respiratory Rate - Anes 10 br/min br/min Systolic Blood Pressure Non-Invasive 78 mmHg mmHg Diastolic Blood Pressure Non-Invasive 56 mmHg mmHg 02/07/2024 9:45 EDT Temperature (Route Not Specified) 36 DegC DegC Heart Rate Monitored 71 bpm bpm Respiratory Rate - Anes 10 br/min br/min Systolic Blood Pressure Non-Invasive 93 mmHg mmHg Diastolic Blood Pressure Non-Invasive 65 mmHg mmHg 02/07/2024 9:40 EDT Heart Rate Monitored 74 bpm bpm Respiratory Rate - Anes 10 br/min br/min Systolic Blood Pressure Non-Invasive 81 mmHg mmHg Diastolic Blood Pressure Non-Invasive 54 mmHg mmHg 02/07/2024 9:35 EDT Heart Rate Monitored 73 bpm bpm Respiratory Rate - Anes 10 br/min br/min Systolic Blood Pressure Non-Invasive 80 mmHg mmHg Diastolic Blood Pressure Non-Invasive 65 mmHg mmHg 02/07/2024 9:30 EDT Temperature (Route Not Specified) 36 DegC DegC Heart Rate Monitored 73 bpm bpm Respiratory Rate - Anes 10 br/min br/min Systolic Blood Pressure Non-Invasive 82 mmHg mmHg Diastolic Blood Pressure Non-Invasive 65 mmHg mmHg 02/07/2024 9:25 EDT Heart Rate Monitored 80 bpm bpm Respiratory Rate - Anes 10 br/min br/min Systolic Blood Pressure Non-Invasive 85 mmHg mmHg Diastolic Blood Pressure Non-Invasive 64 mmHg mmHg 02/07/2024 9:20 EDT Heart Rate Monitored 80 bpm bpm Respiratory Rate - Anes 10 br/min br/min Systolic Blood Pressure Non-Invasive 93 mmHg mmHg Diastolic Blood Pressure Non-Invasive 68 mmHg mmHg 02/07/2024 9:15 EDT Temperature (Route Not Specified) 36 DegC DegC Heart Rate Monitored 76 bpm bpm Respiratory Rate - Anes 10 br/min br/min Systolic Blood Pressure Non-Invasive 89 mmHg mmHg Diastolic Blood Pressure Non-Invasive 59 mmHg mmHg 02/07/2024 9:10 EDT Heart Rate Monitored 98 bpm bpm Respiratory Rate - Anes 10 br/min br/min Systolic Blood Pressure Non-Invasive 105 mmHg mmHg Diastolic Blood Pressure Non-Invasive 73 mmHg mmHg 02/07/2024 9:05 EDT Heart Rate Monitored 84 bpm bpm Respiratory Rate - Anes 10 br/min br/min Systolic Blood Pressure Non-Invasive 92 mmHg mmHg Diastolic Blood Pressure Non-Invasive 64 mmHg mmHg 02/07/2024 9:00 EDT Temperature (Route Not Specified) 36 DegC DegC Heart Rate Monitored 78 bpm bpm Respiratory Rate - Anes 9 br/min br/min Systolic Blood Pressure Non-Invasive 86 mmHg mmHg Diastolic Blood Pressure Non-Invasive 62 mmHg mmHg 02/07/2024 8:55 EDT Heart Rate Monitored 82 bpm bpm Respiratory Rate - Anes 5 br/min br/min Systolic Blood Pressure Non-Invasive 100 mmHg mmHg Diastolic Blood Pressure Non-Invasive 68 mmHg mmHg 02/07/2024 8:50 EDT Heart Rate Monitored 76 bpm bpm Respiratory Rate - Anes 0 br/min br/min Systolic Blood Pressure Non-Invasive 109 mmHg mmHg Diastolic Blood Pressure Non-Invasive 82 mmHg mmHg 02/07/2024 7:24 EDT Temperature Oral 36.7 DegC Peripheral Pulse Rate 88 bpm Respiratory Rate 24 br/min HI Systolic Blood Pressure Non-Invasive 140 mmHg Diastolic Blood Pressure Non-Invasive 97 mmHg HI , Measurements from flowsheet . Mental status: alert & oriented x 4. Respiratory function: respirations are non-labored. Respiratory support: none. CV function: Normal rate. Cardiovascular support: none. Pain. Nausea status: see nursing documentation of medications. Postoperative hydration status: within normal limits. Digitally Signed by REFUGIO MAN on 02/07/2024 10:17 AM [facility]03-28-2024 Anesthesiology Consult note Patient: SUNDAYLACY Age: 53 years Sex: Male : 1970 Associated Diagnoses: None Author: REFUGIO MAN Preoperative Information Time of last food or liquid consumption: 02/07/2024 00:00:00 Anesthesia history Patient's history: negative. Family's history: negative. Health Status Allergies: Allergic Reactions (Selected) No Known Medication Allergies, Allergies (1) ActiveReaction No Known Medication AllergiesNone Documented Current medications: (Selected) Inpatient Medications Ordered LR 1,000 mL: 20 mL/hr, Intravenous Prescriptions Prescribed Ventolin HFA MDI (90 mcg/inh) inhalation aerosol: 2 puff(s), Inhalation, q4h, for 30 day(s), PRN: as needed for wheezing, 6.7 gram(s), 0 Refill(s) Wixela Inhub 250 mcg-50 mcg inhalation powder: 1 puff, Inhalation, BID, 3 EA, 3 Refill(s) ezetimibe 10 mg oral tablet: 10 mg, 1 tab(s), Oral, qDay, for 90 day(s), 90 tab(s), 3 Refill(s) fexofenadine 180 mg oral tablet: 180 mg, 1 tab(s), Oral, qDay, for 90 day(s), 90 tab(s), 3 Refill(s) omeprazole 20 mg oral delayed release capsule: 20 mg, 1 cap(s), Oral, qDay, 90 cap(s), 3 Refill(s) rosuvastatin 10 mg oral tablet: 10 mg, 1 tab(s), Oral, Mon/Wed/Fri, 39 tab(s), 3 Refill(s) Documented Medications Documented Quercetin: 1 tab, Oral, Daily, respiratory health, 0 Refill(s) Vitamin C: 500 mg, Oral, qDay, 0 Refill(s) Vitamin D3: 400 unit(s), 1 tab(s), Oral, Daily, 0 Refill(s), Medications (1) Active Scheduled: (0) Continuous: (1) Lactated Ringers 1,000 mL 1,000 mL, Intravenous, 20 mL/hr PRN: (0) Problem list: Medical Bicipital tendinitis, left shoulder / SNOMED CT 210935948 / Confirmed BMI 26.0-26.9,adult / SNOMED CT 1838747068 / Confirmed Cervical radiculopathy / SNOMED CT 233228638 / Confirmed Chest pain, exertional / SNOMED CT 128522467 / Confirmed Fatty liver, non alcoholic / SNOMED CT 7931884091 / Confirmed GERD (gastroesophageal reflux disease) / SNOMED CT 655255711 / Confirmed History of prediabetes / SNOMED CT 541999169 / Confirmed Impingement syndrome, shoulder, left / SNOMED CT 894820692 / Confirmed Long-term current use of proton pump inhibitor therapy / SNOMED CT 5659935563 / Confirmed Immunization refused / SNOMED CT 3380833981 / Confirmed Mixed hyperlipidemia / SNOMED CT 881484820 / Confirmed Moderate persistent asthma / SNOMED CT 4631140774 / Confirmed Pain in DIP of index finger of right hand / SNOMED CT 54839651 / Confirmed Right inguinal hernia / SNOMED CT 167369960 / Confirmed Seasonal allergies / SNOMED CT 2820556700 / Confirmed, Active Problems (16) Asthma Bicipital tendinitis, left shoulder BMI 26.0-26.9,adult Cervical radiculopathy Chest pain, exertional Fatty liver, non alcoholic GERD (gastroesophageal reflux disease) History of prediabetes Immunization refused Impingement syndrome, shoulder, left Long-term current use of proton pump inhibitor therapy Mixed hyperlipidemia Moderate persistent asthma Pain in DIP of index finger of right hand Right inguinal hernia Seasonal allergies Histories Past Medical History: No active or resolved past medical history items have been selected or recorded. Family History: Hypertension Father Mother Diabetes Father High cholesterol Mother Father Procedure history: History of robot assisted repair of right inguinal hernia ([id number]) on 02/07/2024 at 53 Years. Eye examination ([id number]) on 06/21/2018 at 48 Years. Comments: 01/23/2020 15:53 FLORA - Nellie Valles LPN, Dr. Glaucoma screening ([id number]) on 06/21/2018 at 48 Years. Comments: 01/23/2020 15:53 Nellie Magdaleno LPN, Dr. PFT - Pulmonary function tests ([id number]) on 08/17/2015 at 45 Years. Comments: 01/23/2020 15:55 Nellie Magdaleno LPN fully reversible mild lg airway-obstructive ventilatory defect consistent of dx of asthma 01/23/2020 15:54 Nellie Magdaleno LPN, Dr.; [facility] Cholecystectomy ([id number]) on 03/07/2007 at 36 Years. Comments: 01/23/2020 15:54 Nellie Magdaleno LPN [facility] Vasectomy ([id number]) in 2000 at 31 Years. Social History Social & Psychosocial Habits Alcohol 02/07/2024 Use: Never Substance Abuse 02/07/2024 Use: Never Tobacco 02/07/2024 Tobacco Use: Never (less than 100 in l Home/Environment 02/07/2024 Living situation: Home/Independent Domestic Concerns None Primary Solar Technician: Self Current Home Treatments None Special Services and Community Resources None Spouse Name Britney Marital Status of Patient if Patient Independent Adult: Nutrition/Health 02/07/2024 Type of diet: Regular Caffeine intake amount: 2 coffee daily, tea & pop Appetite Good Eating Difficulties None . Physical Examination Vital Signs 02/07/2024 9:05 EDT Heart Rate Monitored 84 bpm bpm Respiratory Rate - Anes 10 br/min br/min Systolic Blood Pressure Non-Invasive 92 mmHg mmHg Diastolic Blood Pressure Non-Invasive 64 mmHg mmHg 02/07/2024 9:00 EDT Heart Rate Monitored 78 bpm bpm Respiratory Rate - Anes 9 br/min br/min Systolic Blood Pressure Non-Invasive 86 mmHg mmHg Diastolic Blood Pressure Non-Invasive 62 mmHg mmHg 02/07/2024 8:55 EDT Heart Rate Monitored 82 bpm bpm Respiratory Rate - Anes 5 br/min br/min Systolic Blood Pressure Non-Invasive 100 mmHg mmHg Diastolic Blood Pressure Non-Invasive 68 mmHg mmHg 02/07/2024 8:50 EDT Heart Rate Monitored 76 bpm bpm Respiratory Rate - Anes 0 br/min br/min Systolic Blood Pressure Non-Invasive 109 mmHg mmHg Diastolic Blood Pressure Non-Invasive 82 mmHg mmHg 02/07/2024 7:24 EDT Temperature Oral 36.7 DegC Peripheral Pulse Rate 88 bpm Respiratory Rate 24 br/min HI Systolic Blood Pressure Non-Invasive 140 mmHg Diastolic Blood Pressure Non-Invasive 97 mmHg HI Vital Signs(last 24 hrs) Last Charted Temp Oral36.7 DegC (FEB 06 07:24) Heart Rate Eesdnzvbu91 bpm (FEB 06 09:05) SBP92 mmHg (FEB 06 09:05) DBP64 mmHg (FEB 06 09:05) BMI26.56 (FEB 06 07:21) Measurements from flowsheet : Measurements 02/07/2024 7:21 EDT Height 173 cm Height in inches 68.1 inch(es) Admission Weight 79.5 kg Weight Lbs 174.9 lb [place] Body Weight 68.65 kg BSA Admission 1.93 Body Mass Index 26.56 kg/m2 Pain assessment: Pain Assessment 02/07/2024 7:24 EDT Primary Pain Intensity 0 Pain Scale Type 0-10 Pain scale . General: Alert and oriented. Airway: Normal temporomandibular joint mobility, Normal mouth, Normal neck range of motion. Mallampati classification: III (soft palate, base of uvula visible). Dentition Evaluation: Denies loose/chipped teeth. Respiratory: Respirations are non-labored. Cardiovascular: Normal rate. Neurologic: Alert, Oriented. Review / Management Results review: No qualifying data available , Lab results 02/07/2024 9:17 EDT SN - SP - HR - Method Clipped in OR (Modified) 02/07/2024 9:10 EDT SN - MT - Time Administered 02/07/2024 9:10 02/07/2024 9:06 EDT SN - CTm - Surgery Start 02/07/2024 9:05 02/07/2024 9:05 EDT Heart Rate Monitored 84 bpm bpm Respiratory Rate - Anes 10 br/min br/min Systolic Blood Pressure Non-Invasive 92 mmHg mmHg Diastolic Blood Pressure Non-Invasive 64 mmHg mmHg Oxygen Saturation 100 % % Set Rate Anes 10 br/min br/min 02/07/2024 9:00 EDT Heart Rate Monitored 78 bpm bpm Respiratory Rate - Anes 9 br/min br/min Systolic Blood Pressure Non-Invasive 86 mmHg mmHg Diastolic Blood Pressure Non-Invasive 62 mmHg mmHg Oxygen Saturation 100 % % Set Rate Anes 10 br/min br/min 02/07/2024 8:55 EDT Heart Rate Monitored 82 bpm bpm Respiratory Rate - Anes 5 br/min br/min Systolic Blood Pressure Non-Invasive 100 mmHg mmHg Diastolic Blood Pressure Non-Invasive 68 mmHg mmHg Oxygen Saturation 100 % % Set Rate Anes 8 br/min br/min 02/07/2024 8:50 EDT Heart Rate Monitored 76 bpm bpm Respiratory Rate - Anes 0 br/min br/min Systolic Blood Pressure Non-Invasive 109 mmHg mmHg Diastolic Blood Pressure Non-Invasive 82 mmHg mmHg Oxygen Saturation 87 % % 02/07/2024 7:44 EDT SN - Preop - CTm Pt in SDS Room 02/07/2024 7:07 SN - Preop - CTm Pt Ready for OR/Proced 02/07/2024 7:44 02/07/2024 7:39 EDT SN - Cul - Culture Type No Specimen per Surgeon 02/07/2024 7:39 EDT SN - PP - Body Position Supine Standard Intra-op 02/07/2024 7:37 EDT ibuprofen 800 mg mg Lactated Ringers Injection Begin Bag 1,000 mL mL 02/07/2024 7:30 EDT Continuous IV Infusions lr Hand Left 02/07/2024 20 gauge Peripheral IV Activity: Insert new site Peripheral IV Dressing Condition: Clean, Dry, Intact Peripheral IV Dressing Activity: Applied, Transparent dressing Peripheral IV Line Status/Patency: Flushes easily Peripheral IV Line Care: Secured with tape Peripheral IV Site Condition: No complications Peripheral IV Equipment: Extension set, PRN Adaptor Peripheral IV Number of Attempts: 1 02/07/2024 7:27 EDT gabapentin Not Done: Other (Not Done) 02/07/2024 7:26 EDT SN - Proc - Anesthesia Type General, Local SN - Proc - Actual Procedure ROBOTIC ASSISTED RIGHT INGUINAL HERNIA REPAIR 02/07/2024 7:25 EDT SN - SP - Prep Agents Chloraprep 02/07/2024 7:24 EDT Temperature Oral 36.7 DegC Peripheral Pulse Rate 88 bpm Respiratory Rate 24 br/min HI Systolic Blood Pressure Non-Invasive 140 mmHg Diastolic Blood Pressure Non-Invasive 97 mmHg HI Primary Pain Intensity 0 Pain Scale Type 0-10 Pain scale Heart Rhythm Regular Respirations Unlabored Respiratory Pattern Regular All Lobes Breath Sounds Clear Oxygen Therapy Room air Oxygen Saturation 97 % Abdomen Description Non-distended, Soft Bowel Sounds All Quadrants Present Urinary Elimination Voiding, no difficulties Skin Description Normal for ethnicity Skin Integrity Intact IV Present Present Characteristics of Speech Clear Level of Consciousness Alert Strength All Extremities Strong Affect/Behavior Appropriate, Calm, Cooperative Orientation Oriented x 4 Allergies No Anesthesia Extension Set Applied Yes Planting Material Unloader On Yes Consent Form Signed Yes Patient Dressed In Hospital gown Pre-op Preparation Glasses removed CHG Preoperative Wash/Wipe Night before procedure, Day of procedure, Site specific wipe Preop Nasal Swab Povidone-Iodine CHG Skin Prep Completed for Eligible Surgery History & Physical Update On Chart Yes History & Physical On Chart Yes Obstructive Sleep Apnea Assess Completed No Orientation Assessment Oriented x 4 Belongings At Bedside Glasses, Pants, Shirt, Shoes, Socks, Undergarments Positioning Repositions self Sequential Compression Device bilateral knee high applied/on NPO Status Maintained, More than 8 hours Standard Safety ID band on, Call device within reach, Bed in low position, Wheels locked, Safety level maintained Allergy Band on and Verified No Patient ID Band on and Verified Yes Implants Verified No Site Verified by Patient/Family Yes Anesthesia Consent Signed Yes Blood Consent Signed Yes Last Fluid Intake 02/06/2024 23:00 Last Food Intake 02/06/2024 23:00 Last Void 02/07/2024 7:26 02/07/2024 7:23 EDT SN - PTCare - Thermals Forced Air Warming Device Upper Body SN - [facility] - Anti-thromboembolism Ying Sequential Compression Device (SCD) 02/07/2024 7:22 EDT SN - Assess - LOC Alert, Awake SN - Assess - Orientation Oriented X 3 SN - Assess - Post-op Skin Integrity Intact/Dry 02/07/2024 7:22 EDT SN - MT - Route of Administration Local SN - MT - Route of Administration Local SN - MT - By (Single) SN - MT - By (Single) SN - MT - By (Single) SN - MT - By (Single) 02/07/2024 7:21 EDT Designated Person #1 We May Share PHI Britney Sunday [phone] Designated Person #1 Relationship Spouse Designated Person #2 We May Share PHI hRianna Díaz [phone] Designated Person #2 Relationship Daughter Privacy Restrictions Requested None Height 173 cm Height in inches 68.1 inch(es) Admission Weight 79.5 kg Weight Lbs 174.9 lb [place] Body Weight 68.65 kg BSA Admission 1.93 Body Mass Index 26.56 kg/m2 Patient Type Outpatient Status N/A Do You Wish/Go to Sleep/Never Wake Up No Thoughts of Harming Others - History No Thoughts of Suicide - History No Hospital Clergy to Visit Patient Verbalizes No Spiritual Needs Sensory Deficits None Advanced Directives Yes Advance Directive Type [place] Durable Power of Crew Supervisor for [facility], [place] Declaration (Living Will) Advance Directive Location Unable to obtain copy Infectious Disease Symptoms Patient states no symptoms Infectious Disease Recent Exposure No Alcohol and Drug Use No Employee of Institutional Living No Health Care Employee No History of Exposure to TB No History of Positive Chest X-Ray for TB No History of Positive TB Skin Test No Homeless No Known Immunosuppression No Recent Immigrant No Resident of Institutional Living No Bloody Sputum No Fatigue No Fever No Loss of Appetite No Night Sweats No Persistent Cough > 3 Weeks No Weight Loss No Barriers to Learning None evident Teaching Method Explanation Preferred Spoken Language Armenian Preferred Written Language Armenian Teaching Evaluation No further teaching needed Safety Brochure Information Reviewed Yes Susan Pedro Video Viewed No Information Given by Patient Patient's Current Physicians Patient's Current Physicians Discharge To, Anticipated Home with family care Prev Test Positive/Diagnosis w/COVID-19 Yes Previous COVID-19 Positive Date 2021 Current Quarantine/Isolated any Illness No Any Contact with Sick Animals/Birds No Traveled Anywhere in Last 30 Days No Lost Weight Unintentionally Recently No Eat Poorly Due to Decreased Appetite No Total MST Score 0 N/A Personal Devices, Patient Valuables None, Glasses, Hearing aid, left, Hearing aid, right Admission Note-Nursing Patient History (AO) 02/07/2024 7:19 EDT SN - GCD - Post-operative Diagnosis RIGHT INGUINAL HERNIA SN - GCD - Case Level Level 6 02/07/2024 7:15 EDT SN - CAt - Case Attendee SN - CAt - Case Attendee SN - CAt - Case Attendee SN - CAt - Case Attendee SN - CAt - Case Attendee SN - CAt - Case Attendee SN - CAt - Case Attendee SN - CAt - Case Attendee SN - CAt - Case Attendee SN - CAt - Case Attendee SN - CAt - Role Performed Primary Surgeon SN - CAt - Role Performed Boat Fueler 1 SN - CAt - Role Performed Scrub 1 SN - CAt - Role Performed Open Die Inspector 1 SN - CAt - Role Performed TRUCK RENTAL SERVICE ATTENDANT . Assessment and Plan [employer] ([employer]A) physical status classification: Class II. Anesthetic Preoperative Plan Anesthetic technique: General. Informed consent: signed by patient. Digitally Signed by REFUGIO MAN on 02/07/2024 09:17 AM [facility]03-14-2024 Note ORIGINAL EXAMINATION: TWO XRAY VIEWS OF THE CHEST 01/24/2024 3:05 pm COMPARISON: None. HISTORY: ORDERING SYSTEM PROVIDED HISTORY: Reason for Exam: Pre-admission testing FINDINGS: The heart size and mediastinal contours are normal. There is no lung infiltrate or edema. No pneumothorax or pleural fluid is present. The skeletal structures are unremarkable. IMPRESSION: No acute cardiopulmonary process. Interpreted by: Emir Parkinson MD Preliminary Report By: Emir Parkinson MD Electronically signed By Emir Parkinson MD Dictated Date: 01/25/2024 1:30:58 AM Prelim Date: 01/25/2024 1:31:41 AM Sign Date: 01/25/2024 1:31:41 AM Ordering Provider: NEW [facility]09-07-2022 Note HNO ID: [id number] Author: RT Edgardo(R) Service: ? Author Type: Technologist Type: Progress Notes Filed: 07/19/2022 8:14 AM Note Text: Radiology Service Progress Note PATIENT NAME: Lacy Castellanos Sunday DATE OF SERVICE: July 19, 2022 TIME: 8:13 AM PATIENT IDENTITY VERIFICATION COMPLETED USING TWO (2) IDENTIFIERS: Name and Date of confirmed by patient verbally. FALL SCREENING: Has the patient had 2 falls in the last year or 1 fall with injury or currently using an Ambulatory Assistive Device (Walker, Cane, Wheelchair, Crutches, etc.)? No PATIENT GENDER DATA: Male PATIENT RELEVANT IMPLANT DATA REVIEWED: Not Applicable RADIOLOGY DEPARTMENT: General X-ray: Exam(s) Completed: Spine X-Ray(s): Cervical AP / LAT / OBL PERIPHERAL IV DATA: Not applicable SIGNED BY: RT Edgardo(R) July 19, 2022 8:13 [facility]09-07-2022 History of Present illness Narrative* RT Edgardo(R) - 07/19/2022 8:00 AM EDT Radiology Service Progress Note PATIENT NAME: Lacy Castellanos Sunday DATE OF SERVICE: July 19, 2022 TIME: 8:13 AM PATIENT IDENTITY VERIFICATION COMPLETED USING TWO (2) IDENTIFIERS: Name and Date of confirmedby patient verbally. FALL SCREENING: Has the patient had 2 falls in the last year or 1 fall with injury or currently using an Ambulatory Assistive Device (Walker, Cane, Wheelchair, Crutches, etc.)? No PATIENT GENDER DATA: Male PATIENT RELEVANT IMPLANT DATA REVIEWED: Not Applicable RADIOLOGY DEPARTMENT: General X-ray: Exam(s) Completed: Spine X-Ray(s): Cervical AP / LAT / OBL PERIPHERAL IV DATA: Not applicable SIGNED BY: RT Edgardo(R) July 19, 2022 8:13 AM documented in [facility] InstituteEvaluation + Plan note Future Appointments Appointment Date:11/09/2021 04:30:00 PM Scheduled Provider:MARY FOSTER DO Location:[facility] Appointment Type: Wellness Annual [facility] Evaluation + Plan note Future Appointments Appointment Date:06/07/2022 04:15:00 PM Scheduled Provider:MARY FOSTER DO Location:[facility] Appointment Type:PC OV Future Scheduled Tests Laboratory* A1C Hemoglobin 03/06/22 [facility] Evaluation + Plan note Future Appointments Appointment Date:12/12/2022 04:30:00 PM Scheduled Provider:BALA WANG DO Location:[facility] Appointment Type:PC Wellness Annual Future Scheduled Tests Laboratory* A1C Hemoglobin 03/06/22 [facility] Evaluation + Plan note Future Appointments Appointment Date:05/29/2023 04:30:00 PM Scheduled Provider:BALA WANG DO Location:[facility] Appointment Type:PC OV [facility]uation + Plan note Future Appointments Appointment Date:12/11/2023 04:30:00 PM Scheduled Provider:BALA WANG DO Location:[facility] Appointment Type: Wellness Annual Diagnostic Tests Pending * LDL Cholesterol (Direct) 12/05/23 Future Scheduled Tests Laboratory* Albumin/Creatinine Ratio, Random Urine 05/29/23 [facility]HealthHomealuation + Plan note Future Appointments Appointment Date:01/31/2024 02:00:00 PM Scheduled Provider:ANAHI PLEITEZ MD Location:[facility] Appointment Type:GS OV Pre Op Appointment Date:12/12/2024 04:30:00 PM Scheduled Provider:BALA WANG DO Location:[facility] Appointment Type:PC Wellness Annual Future Scheduled Tests Laboratory* Folate Level 12/11/23 * Prostate Specific Antigen 12/11/24 * Thyroid Stimulating Hormone 12/11/24 * Vitamin B12 Level 12/11/24 * A1C Hemoglobin 12/11/24 * Complete Blood Count 12/11/24 * Lipid Profile 12/11/24 * Albumin/Creatinine Ratio, Random Urine 05/29/23 * Complete Metabolic Panel 12/11/24 [facility] evaluation + Plan note Future Appointments Appointment Date:12/12/2024 04:30:00 PM Scheduled Provider:BALA WANG DO Location:[facility] Appointment Type:PC Wellness Annual Future Scheduled Tests Laboratory* Folate Level 12/11/23 * Prostate Specific Antigen 12/11/24 * Thyroid Stimulating Hormone 12/11/24 * Vitamin B12 Level 12/11/24 * A1C Hemoglobin 12/11/24 * Complete Blood Count 12/11/24 * Lipid Profile 12/11/24 * Albumin/Creatinine Ratio, Random Urine 05/29/23 * Complete Metabolic Panel 12/11/24 [facility] Evaluation + Plan note Future Appointments Appointment Date:12/12/2024 04:30:00 PM Scheduled Provider:BALA WANG DO Location:[facility] Appointment Type: Wellness Annual Diagnostic Tests Pending * Urine Culture 02/21/24 Future Scheduled Tests Laboratory* Folate Level 12/11/23 * Prostate Specific Antigen 12/11/24 * Thyroid Stimulating Hormone 12/11/24 * Vitamin B12 Level 12/11/24 * A1C Hemoglobin 12/11/24 * Complete Blood Count 12/11/24 * Lipid Profile 12/11/24 * Albumin/Creatinine Ratio, Random Urine 05/29/23 * Complete Metabolic Panel 12/11/24 [facility] Evaluation + Plan note Future Appointments Appointment Date:03/21/2024 04:00:00 PM Scheduled Provider:BALA WANG DO Location:[facility] Appointment Type:PC OV Appointment Date:12/12/2024 04:30:00 PM Scheduled Provider:BALA WANG DO Location:[facility] Appointment Type:PC Wellness Annual Future Scheduled Tests Laboratory* Folate Level 12/11/23 * Prostate Specific Antigen 12/11/24 * Thyroid Stimulating Hormone 12/11/24 * Vitamin B12 Level 12/11/24 * A1C Hemoglobin 12/11/24 * Complete Blood Count 12/11/24 * Lipid Profile 12/11/24 * Albumin/Creatinine Ratio, Random Urine 05/29/23 * Complete Metabolic Panel 12/11/24 [facility] Evaluation + Plan note Future Appointments Appointment Date:06/10/2024 01:00:00 PM Scheduled Provider:ELI VICK Location:[facility] Appointment Type:CV OV Appointment Date:06/27/2024 04:30:00 PM Scheduled Provider:BALA WANG DO Location:[facility] Appointment Type:PC OV Appointment Date:12/12/2024 04:30:00 PM Scheduled Provider:BALA WANG DO Location:[facility] Appointment Type: Wellness Annual Future Scheduled Tests Laboratory* Folate Level 12/11/23 * Prostate Specific Antigen 12/11/24 * Thyroid Stimulating Hormone 12/11/24 * Vitamin B12 Level 12/11/24 * Vitamin B12 Level 07/22/24 * A1C Hemoglobin 12/11/24 * A1C Hemoglobin 07/22/24 * Complete Blood Count 12/11/24 * Lipid Profile 12/11/24 * Lipid Profile 07/22/24 * Albumin/Creatinine Ratio, Random Urine 05/29/23 * Complete Metabolic Panel 12/11/24 * Complete Metabolic Panel 07/22/24 [facility] Evaluation + Plan note Future Appointments Appointment Date:06/16/2024 01:00:00 PM Scheduled Provider:ELI VICK Location:[facility] Appointment Type:CV OV Appointment Date:06/27/2024 12:30:00 PM Scheduled Provider:BALA WANG DO Location:[facility] Appointment Type:PC OV Appointment Date:12/12/2024 04:30:00 PM Scheduled Provider:BALA WANG DO Location:[facility] Appointment Type: Wellness Annual Future Scheduled Tests Laboratory* Folate Level 12/11/23 * Prostate Specific Antigen 12/11/24 * Thyroid Stimulating Hormone 12/11/24 * Vitamin B12 Level 12/11/24 * Vitamin B12 Level 07/22/24 * A1C Hemoglobin 12/11/24 * A1C Hemoglobin 07/22/24 * Complete Blood Count 12/11/24 * Lipid Profile 12/11/24 * Lipid Profile 07/22/24 * Complete Metabolic Panel 12/11/24 * Complete Metabolic Panel 07/22/24 [facility] Evaluation + Plan note Future Appointments Appointment Date:06/27/2024 12:30:00 PM Scheduled Provider:BALA WANG DO Location:[facility] Appointment Type:PC OV Appointment Date:12/12/2024 04:30:00 PM Scheduled Provider:BALA WANG DO Location:[facility] Appointment Type:PC Wellness Annual Future Scheduled Tests Laboratory* Folate Level 12/11/23 * Prostate Specific Antigen 12/11/24 * Thyroid Stimulating Hormone 12/11/24 * Vitamin B12 Level 12/11/24 * A1C Hemoglobin 12/11/24 * Complete Blood Count 12/11/24 * Lipid Profile 12/11/24 * Complete Metabolic Panel 12/11/24 [facility] Evaluation + Plan note Future Appointments Appointment Date:12/12/2024 12:30:00 PM Scheduled Provider:BALA WANG DO Location:[facility] Appointment Type: Wellness Annual Future Scheduled Tests Laboratory* Folate Level 12/11/23 [facility] Evaluation noteNo assessment information available [facility] Work Phone: Hospital course Narrative No data available for this section [facility] Hospital Discharge instructions No data available for this section [facility] Hospital Discharge instructions Additional Instructions To the medication list attached, add aspirin 81 mg (baby aspirin) once daily. In addition to your doctor, you may also follow-up with our neurologist whose information is attached, or if you wish you may follow-up with a neurology practice elsewhere.[facility] Work Phone: Progress note No data available for this section [facility] Summary Purpose Family History No Family History Records FoundNo Family History Records Found No data available for this section No data available for this section No data available for this section No data available for this section No data available for this section No data available for this section No data available for this section No data available for this section No data available for this section No data available for this section No Family History Records FoundNo Family History Records Found No data available for this section No Family History Records Found Advance Directives No Advanced Directives Records Found Advance Directive Response Recorded Date/ Time Living Will Yes February 09, 2024 10:23am Power of Crew Supervisor Yes February 08 10:23am Name of Medical Power of Crew Supervisor February 09, 2024 10:23am Chief Complaint and Reason for Visit Chief Complaint CHEST PAIN CHEST PAIN Chief Complaint NEURO SYMPTOMS Additional Source Comments (unrecognized sect ion and content) No Status Records FoundNo Status Records FoundNo Status Records FoundNo Status Records FoundNo Status Records Found INFORMATION SOURCE (unrecogn ized section and content) DATE CREATED AUTHOR 05/10/2018 [facility] DATE CREATED AUTHOR AUTHOR'S ORGANIZ ATION 07/19/2022 [facility] DATE CREATED AUTHOR AUTHOR'S ORGANIZ ATION 06/23/2024 [facility] ([place]) DATE CREATED AUTHOR AUTHOR'S ORGANIZ ATION 06/25/2024 [facility] DATE CREATED AUTHOR AUTHOR'S ORGANIZ ATION 12/11/2024 [facility] Care Team (unrecognized sect ion and content) Family Physician Relationship Specialty Start Date End Date Jennyfer Casanova, [employer]ORATORY TECHNICIAN.ASSURANCE SOURCING MANAGER [address] [place] [address] PCP - General Family Practice 01/19/21 Team Status: Active Member Role Status Dates Dr. Hakeem Nelson MD Family Provider Active Dr. Bala Wang , DO Primary Care Provider Active Team Status: Active Member Role Status Dates Dr. Bala Wang DO Primary Care Provider, Other Pr ovider Active Dr. Dilshad Harris MD Attending Provider Active Team Status: Inactive Member Role Status Dates Dr. Bala Wang DO Primary Care Provider, Attendin g Provider Active Team Status: Inactive Member Role Status Dates Dr. Bala Wang DO Primary Care Provider Active Dr. Porfirio Holley MD Emergency Provider Active Source Comments (unrecognize d section and content) In the event this informatio n is protected by the Federal Confidentiality of Alcohol and Drug Abuse Patient Records regulations: The Federal rules restrict any use of the information to criminally investigate or prosecute any alcohol or drug abuse patient.[facility] Care Team (unrecognized sect ion and content) Care Team Personnel Name: Elizabeth Serrato Clerkatlin Parker PT Position: P3 Scheduling - Director Airport Advanced Member Role: Other Name: BALA WANG DO Position: P4 Physician - Primary Care Member Role: Primary Care Physician Address: Address: [address] [place] [id number] Care Team Related Persons Name: Address: Home [address] [place], [place] [id number] Goals (unrecognized section and content) Goals may be documented in a n alternate section FOR RECORDS PERTAINING TO PATIENTS WHO ARE OR HAVE BEEN ENROLLED IN A CHEMICAL DEPENDENCY/SUBSTANCEABUSE PROGRAM, SOME INFORMATION MAY BE OMITTED. This clinical summary was aggregated from multiple sources. Caution should be exercised in using it in the provision of clinical care. This summary normalizes information from multiple sources, and as a consequence, information in this document may materially change the coding, format and clinical context of patient data. In addition, data may be omitted in some cases. CLINICAL DECISIONS SHOULD BE BASED ON THE PRIMARY CLINICAL RECORDS. [facility] [employer] [facility] provides no warranty or guarantee of the accuracy or completeness of information in this document.
[2025-10-17 05:25] LABS: Mucous, Urine 0 SEEN /hpf (<or=2+); Red Blood Cells-Urine 0 SEEN /hpf (0-5); Squamous Epithelial Cells - UA 0 SEEN /hpf (0-5)
[2025-10-17 05:43] LABS: Color, Urine Yellow (Yellow); Glucose, Dipstick Normal (Normal); Ketone-Dipstick Negative (Negative); Leukocyte Esterase-Dipstick Negative /ul (Negative); Nitrite-Dipstick Negative (Negative); Occult Blood-Urine Negative /ul (Negative); Protein-Dipstick Negative (Negative); Specific Gravity, Urine 1.015 (1.002-1.030); Urine Bilirubin Dipstick Negative (Negative)
[2025-10-17 05:52] LABS: Anion Gap 11 (5-15); BUN 13 mg/dL (4-19); BUN/Creat Ratio 13.5 RATIO (10-20); Calcium,Total 9.8 mg/dL (7.6-11.0); Carbon Dioxide 24.7 mmol/L (21.0-32.0); Chloride 101 mmol/L (98-108); Estimated Creatinine Clearance 92.13 ml/min (50-250); Glucose 118 mg/dL (70-99); Potassium 4.0 mmol/L (3.3-5.1)
[2025-10-17 08:27] VITALS: BP 134/75; BP 150/96; PULSE 78; PULSE 81; RESP 16; TEMP 36.3; TEMP 36.9; O2SAT 98; O2SAT 99
== END 2025-10-17 08:29 | disposition home or self-care (01) ==
PROVIDERS: Emergency Provider Specialist/Technologist Athletic Trainer; Visit Provider Specialist/Technologist Athletic Trainer
DX: N50.812 Left testicular pain (principal); N45.1 Epididymitis; K21.9 Gastro-esophageal reflux disease without esophagitis; E78.5 Hyperlipidemia, unspecified; Z79.82 Long term (current) use of aspirin
CPT/HCPCS: 76870; 80048; 81001; 93976; 99283; A4216